=== PATIENT | male | born 1950 | race Caucasian/White ===

== ENCOUNTER 2023-12-26 10:24 | Outpatient (CLI) | payer OTHER, SELFPAY ==
[2023-12-26 11:19] LABS: Hematocrit 30.4 % (42.0-52.0); Hemoglobin 9.1 g/dL (14.0-18.0); Mean Corpuscular HGB Conc 29.9 g/dl (32-36); Mean Corpuscular Hemoglobin 24.9 pg (26-34); Mean Corpuscular Volume 83.3 fl (80-100); Mean Platelet Volume 10.9 fl (7.4-10.4); Platelet Count Result 199 k/mm3 (150-375); Red Blood Count 3.65 M/mm3 (4.6-6.20); Red Cell Distribution Width 14.8 % (11.5-14.5); White Blood Count 6.8 K/mm3 (4.5-10.0)
[2023-12-26 11:32] LABS: INR 1.1; Prothrombin Time 14.4 Seconds (11.1-14.7)
[2023-12-26 11:37] LABS: Alanine Aminotransferase 17 U/L (6-50); Albumin Level 3.6 g/dL (3.5-5.1); Alkaline Phosphatase 79 U/L (38-126); Anion Gap 7 mmol/L (4-12); Aspartate Amino Transferase 24 U/L (17-59); Bilirubin,Total 0.3 mg/dL (0.2-1.3); Blood Urea Nitrogen 25 mg/dL (9-20); Calcium 9.2 mg/dL (8.4-10.2); Carbon Dioxide 24 mmol/L (22-30); Chloride 104 mmol/L (98-107); Estimated Glomerular Filt Rate > 60; Glucose 230 mg/dL (65-110); Potassium 4.5 mmol/L (3.4-5.0); Sodium 135 mmol/L (137-145)
[2023-12-26 12:13] LABS: Iron 16 ug/dL (49-181)
[2023-12-26 12:22] LABS: Percent Iron Saturation 5 % (20-50)
[2023-12-26 12:35] LABS: Folic Acid 13.1 ng/mL (2.76->20)
[2023-12-28 16:34] LABS: Immunoglobulin A 396 mg/dL (70-320); TTG IGA AB <1.0 U/mL
== END 2023-12-26 10:25 | disposition home or self-care (01) ==
LOC: ANHLAB 10:29
PROVIDERS: PCP Family Medicine Adolescent Medicine; Visit Provider Nurse Practitioner
DX: K52.9 Noninfective gastroenteritis and colitis, unspecified (principal); D64.9 Anemia, unspecified; E11.42 Type 2 diabetes mellitus with diabetic polyneuropathy; K62.89 Other specified diseases of anus and rectum; R19.5 Other fecal abnormalities; R63.4 Abnormal weight loss
CPT/HCPCS: 36415; 80053; 82607; 82728; 82746; 82784; 83540; 83550; 84443; 85027; 85610; 86364

== ENCOUNTER 2023-12-28 08:34 | Outpatient (CLI) | payer OTHER, SELFPAY ==
[2023-12-28 14:40] LABS: Toxigenic C. Diff NEGATIVE (NEGATIVE)
[2024-01-03 18:28] LABS: Calprotectin, Stool 33 mcg/g
[2024-01-03 19:38] LABS: Pancreatic Elastase, Stool >500 mcg/g
== END 2023-12-28 08:35 | disposition home or self-care (01) ==
LOC: ANHLAB 08:35
PROVIDERS: PCP Family Medicine Adolescent Medicine; Visit Provider Nurse Practitioner
DX: R63.4 Abnormal weight loss (principal); K52.9 Noninfective gastroenteritis and colitis, unspecified; K92.2 Gastrointestinal hemorrhage, unspecified
CPT/HCPCS: 82653; 83993; 87045; 87269; 87427; 87449; 87493

== ENCOUNTER 2024-01-18 11:25 | Outpatient (CLI) | payer OTHER, SELFPAY ==
--- NOTE | ~2024-01-18 | US_ITS ---
RIGHT UPPER EXTREMITY VENOUS ULTRASOUND Ordering provider: Coby Lopez APRN History: . OTHER SPECIFIED SOFT TISSUE DISORDERS . Comparison: None. FINDINGS: --JUGULAR: Acute thrombosis --SUBCLAVIAN: Acute thrombosis. --AXILLARY: Acute thrombosis --BRACHIAL: Acute thrombosis --CEPHALIC: Acute thrombosis --BASILIC: Acute thrombosis --RADIAL: Patent and free of thrombus. Normal compressibility, phasic flow and augmentation. --ULNAR: Patent and free of thrombus. Normal compressibility, phasic flow and augmentation. IMPRESSION: POSITIVE right upper extremity venous US. Deep vein thrombosis. Reviewed, dictated and finalized at location A.
== END 2024-01-18 11:26 | disposition home or self-care (01) ==
LOC: ANHIMG 11:27
PROVIDERS: PCP Family Medicine Adolescent Medicine; Visit Provider Nurse Practitioner Family
DX: M79.89 Other specified soft tissue disorders (principal)
CPT/HCPCS: 93971

== ENCOUNTER 2024-01-18 14:06 | Emergency (ER) | payer OTHER, SELFPAY ==
[2024-01-18 15:11] VITALS: BP 165/58; PULSE 102; RESP 15; TEMP 36.6; O2SAT 98
--- NOTE | 2024-01-18 15:16 | ECG_ITS ---
Test Date: 2024-01-18 15:25:32 Measurements Intervals [place] Rate: 89 P: 78 [place]: 181 QRS: 63 QRSD: 110 T: 76 QT: 357 QTc: 435 Interpretive Statements SINUS RHYTHM NONSPECIFIC ST ABNORMALITY ABNORMAL ECG No previous ECG available for comparison Electronically Signed On 01-18-2024 16:36:07 CDT by Sascha Liu M.D.
--- NOTE | 2024-01-18 15:17 | ED.EXTPRO ---
HPI - Extremity Problem General Chief complaint: Extremity Problem,Nontraumatic <Raya Ronquillo PA-C - Last Filed: 01/18/24 18:00> Stated complaint: blood clot right arm <MARCIA Garber Last Filed: 01/18/24 18:00> Time Seen by Provider: 01/18/24 15:00 <Raya Ronquillo PA-C - Last Filed: 01/18/24 18:00> Focused HPI: This is a 73-year-old male that presents to the emergency department for right upper extremity edema. Ongoing over the last 4 days. He had an outpatient ultrasound which showed a DVT. He was prompted to be seen in the ER. He also reports shortness of breath. GENERAL: Well-appearing, well-nourished, and in no acute distress. HEAD: Normocephalic, atraumatic. CHEST: Clear to auscultation. ?No respiratory distress. HEART: Regular rate and rhythm.? NEURO: ?Alert and oriented x3. Patient screened in triage and initial orders placed.? ?Additional care and disposition to be based upon?diagnostic testing and treatment. <MARCIA Garber Last Filed: 01/18/24 18:00> Source: patient <MARCIA Garber Last Filed: 01/18/24 18:00> Mode of arrival: ambulatory <MARCIA Garber Last Filed: 01/18/24 18:00> Limitations: no limitations <MARCIA Garber Last Filed: 01/18/24 18:00> History of Present Illness HPI Narrative: 73-Year-old male presents to the emergency department for an abnormal outpatient ultrasound. Patient has had arm swelling since 01/14/2024. His outpatient ultrasound showed a DVT in his right upper extremity and was advised to be seen in the ED. He is reporting some shortness of breath and chest pain. Unable to obtain further history due to patient's combativeness. He is frustrated with his wait time and does not want any further workup or evaluation. <MARCIA Corbin Last Filed: 01/18/24 17:31> Related Data Allergies/Adverse reactions: Allergies Allergy/AdvReac Type Severity Reaction Status Date / Time No Known Allergies Allergy Verified 01/18/24 10:08 <Raya Ronquillo PA-C - Last Filed: 01/18/24 18:00> Review of Systems Review of Systems: CONSTITUTIONAL: Denies fever, chills, or sweats. EYES: Denies visual changes, redness, or discharge. ENT: Denies rhinorrhea, congestion, sore throat, or otalgia. CARDIOVASCULAR: See HPI RESPIRATORY: see HPI GASTROINTESTINAL: Denies abdominal pain, nausea, vomiting, or diarrhea. GENITOURINARY: Denies dysuria or hematuria. SKIN: Denies rash or itching. MUSCULOSKELETAL: Denies back pain, joint pain, or myalgia. NEUROLOGIC: Denies headache, numbness, or weakness. PSYCHIATRIC: Denies anxiety or depression. <Rosita Bar PA-C - Last Filed: 01/18/24 17:31> PMFSH Surgical History Surgical History: Surgical History History of amputation of right great toe (2012) <Raya Ronquillo PA-C - Last Filed: 01/18/24 18:00> Family History Family History: Family History Father Hypertension Lung cancer Mother Diabetes mellitus <Raya Ronquillo PA-C - Last Filed: 01/18/24 18:00> Social History Social History: Social History Smoking status: Former smoker Tobacco type: cigarettes Alcohol intake: former Substance use type: does not use Living arrangements: with family Spiritual care concerns: No <Raya Ronquillo PA-C - Last Filed: 01/18/24 18:00> Exam Narrative: GENERAL: Well-appearing, well-nourished, and in no acute distress. Speaking in full sentences HEAD: Normocephalic, atraumatic. NECK: Supple. EXTREMITIES: Edema and erythema to the RUE SKIN: Warm, dry, no rash. NEURO: No focal deficits. Alert and oriented x3. Ambulatory with a steady gait <Rosita Bar PA-C - Last Filed: 01/18/24 17:31> Course Vital Signs Vital signs:
[2024-01-18 15:42] LABS: Basophils Percent Auto 0.4 % (0.2-1.2); Eosinophils Percent Auto 0.5 % (0-4.4); Hematocrit 28.3 % (42.0-52.0); Hemoglobin 8.4 g/dL (14.0-18.0); Immature Granulocyte Absolute 0.12 K/mm3 (0.00-0.031); Immature Granulocyte Percent A 1.4 % (0-0.5); Lymphocytes Absolute Auto 0.66 K/mm3 (0.9-3.2); Mean Corpuscular HGB Conc 29.7 g/dl (32-36); Mean Corpuscular Hemoglobin 24.2 pg (26-34); Mean Corpuscular Volume 81.6 fl (80-100); Mean Platelet Volume 10.6 fl (7.4-10.4); Monocytes Absolute Auto 0.5 K/mm3 (0.1-0.6); Monocytes Percent Auto 6.2 % (2.6-8.5); Neutrophils Absolute Auto 6.9 K/mm3 (1.3-6.7); Neutrophils Percent Auto 83.5 % (45.5-73.1); Platelet Count Result 216 k/mm3 (150-375); Red Blood Count 3.47 M/mm3 (4.6-6.20); Red Cell Distribution Width 15.9 % (11.5-14.5); White Blood Count 8.3 K/mm3 (4.5-10.0)
[2024-01-18 15:54] LABS: Alanine Aminotransferase 17 U/L (6-50); Albumin Level 3.3 g/dL (3.5-5.1); Alkaline Phosphatase 95 U/L (38-126); Anion Gap 6 mmol/L (4-12); Aspartate Amino Transferase 36 U/L (17-59); Bilirubin,Total 0.4 mg/dL (0.2-1.3); Blood Urea Nitrogen 28 mg/dL (9-20); Calcium 9.1 mg/dL (8.4-10.2); Carbon Dioxide 23 mmol/L (22-30); Chloride 105 mmol/L (98-107); Estimated CRCL calculation 59 ml/min; Estimated Glomerular Filt Rate > 60; Glucose 252 mg/dL (65-110); INR 1.1; Partial Thromboplastin Time 25.4 Seconds (22.3-36.8); Potassium 4.6 mmol/L (3.4-5.0); Prothrombin Time 14.6 Seconds (11.1-14.7); Sodium 134 mmol/L (137-145)
[2024-01-18 16:06] LABS: Hypochromasia 1+; Ovalocytes 1+; Platelet Estimate Adequate (Adequate); Schistocytes None Seen
[2024-01-18] MEDS: APIXABAN 5 MG TABLET 10 MG PO (17:27)
--- NOTE | 2024-01-18 17:28 | PC.NURSE ---
pt was brought back to room 12 around 1650. pt was hooked up to monitor by heat treatment technician. this RN went into room and performed an assessment. pt made aware that a provider will be in to see him. pt had a medical screening exam performed by JULIETH Dos Santos. labs,vitals, EKG and IV performed in triage. heat treatment technician approached this RN and states pt is wanting to leave. JULIETH Lane made aware. Ariana and this RN walk into room. pt states You all are doing your job but Im not sitting in the bed for hours not doing nothing. I can just be at home and sit around. JULIETH Lane requesting to do an assessment on pt. pt states well isn't that what your doing right now. pt refusing for any further assessments or testing to be done and states it is taking too long. pt made aware of the risks of leaving against medical advice and benefits of staying in the hospital. pt verbalized understanding and is still refusing treatment. pt did agree to taking PO Eliquis before leaving. IV removed w/ catheter intact. pt signed AMA forms. pt ambulated out of ED with steady gait.
[2024-01-18 17:52] VITALS: BP 164/67; PULSE 84; RESP 20; O2SAT 100
== END 2024-01-18 17:52 | disposition left against medical advice (07) ==
PROVIDERS: Physician Assistant; Emergency Provider Physician Assistant; PCP Family Medicine Adolescent Medicine
DX: I82.621 Acute embolism and thrombosis of deep veins of right upper extremity (principal); Z87.891 Personal history of nicotine dependence; Z89.411 Acquired absence of right great toe; R94.31 Abnormal electrocardiogram [ECG] [EKG]
CPT/HCPCS: 36415; 80053; 85025; 85610; 85730; 93005; 93971; 99283; A9270

== ENCOUNTER 2024-03-22 03:59 | Inpatient (IN) | payer OTHER, SELFPAY ==
[2024-03-22] VITALS (14 sets, daily range): BP systolic 110–126; BP diastolic 49–73; PULSE 84–95; RESP 16–20; TEMP 36.2–36.9; O2SAT 98–100; BMI 21.1
--- NOTE | 2024-03-22 | ECHO_ITS ---
Patient Info Name: Juan Luis Aguilar Age: 73 years : 1950 Gender: Male Ht: 71 in Wt: 135 lbs BSA: 1.74 m2 HR: 89 bpm BP: 118 / 49 mmHg Heart Rhythm: Indeterminant Technical Quality: Poor Exam Date: 03/22/2024 4:19 PM Exam Location: Echo Lab Patient Status: Inpatient Admit Date: 03/22/2024 Staff Ordering Physician: Cecilia Issa MD Movie Stunt Performer: Efraín Queen RDCS Attending Provider: Cecilia Issa MD Exam Type: CA echo dop color flow w con Study Info Indications - elevated troponin Complete two-dimensional, color flow and Doppler transthoracic echocardiogram is performed with agitated saline. Reason for Poor Study: poor echocardiographic windows Summary 1. Definity contrast administered improved wall motion interpretation. 2. Left ventricular chamber dimension is moderately enlarged. 3. Mid to apical segments are severely hypokinetic and apex is akinetic. Basal segments are preserved. This is suggestive of Takotsubo cardiomyopathy. 4. Left ventricular systolic function is severely reduced, estimated at 30-35%. 5. The left ventricular diastolic function is grade I diastolic dysfunction. 6. E/e' 12 is mildly elevated. 7. 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 This is non-obstructive. Consider YEMI if clinically indicated. 8. There is mild to moderate tricuspid valve regurgitation. 9. No pulmonary hypertension, estimated pulmonary arterial systolic pressure is 39 mmHg. 10. There is small right sided pericardial effusion. Left Ventricle Definity contrast administered improved wall motion interpretation. E/e' 12 is mildly elevated. Mid to apical segments are severely hypokinetic and apex is akinetic. Basal segments are preserved. This is suggestive of Takotsubo cardiomyopathy. Left ventricular chamber dimension is moderately enlarged. Left ventricular systolic function is severely reduced, estimated at 30-35%. The left ventricular diastolic function is grade I diastolic dysfunction. Right Ventricle Right ventricular systolic function is normal and with normal TAPSE 2.3 cm. Right ventricular chamber dimension is normal. Left Atria Left atrial chamber dimension is normal. 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 This is non-obstructive. Consider YEMI if clinically indicated. Right atrial chamber dimension is normal. Aortic Valve The aortic valve is trileaflet. There is no aortic valve stenosis. There is no aortic valve regurgitation. Pulmonic Valve There is no pulmonic regurgitation. Mitral Valve There is no mitral valve stenosis. There is no mitral valve regurgitation. Tricuspid Valve There is mild to moderate tricuspid valve regurgitation. No pulmonary hypertension, estimated pulmonary arterial systolic pressure is 39 mmHg. Pericardium/Pleural There is small right sided pericardial effusion. No cardiac tamponade. Inferior Vena Cava Normal inferior vena cava with >50% collapse upon inspiration consistent with normal right atrial pressure, 5 mmHg. Aorta The aortic root size at the sinus of Valsalva is normal. Left Ventricular Outflow Tract Name Value Normal LVOT 2D
--- NOTE | ~2024-03-22 | US_ITS ---
EXAMINATION: US biopsy lymph node DATE: 03/26/2024 17:13 INDICATION: Metastatic disease with enlarged right supraclavicular lymph node TECHNIQUE: The procedure including the risks and benefits was discussed with the patient. Risks discu ssed included bleeding and infection. The patient understood the risks and agreed to proceed. The sk in overlying the right supraclavicular region was prepped and draped in usual sterile fashion. Anesth etic was administered with 1% lidocaine subcutaneously. An 18 gauge core biopsy needle was advanced under continuous ultrasound observation to the lesion of interest. 4 core biopsy specimens were obta ined. The needle was removed and the entry site was cleaned and dressed. Post procedure ultrasound demonstrated no hemorrhage. FINDINGS: Ultrasound images demonstrate the biopsy needle advanced into a 2.9 x 2.6 cm enlarged right supraclavicular lymph node. IMPRESSION: 1. Successful Ultrasound-guided biopsy of an enlarged right supraclavicular lymph node. Reviewed, dictated and finalized at location A. IMPRESSION: 1. Successful Ultrasound-guided biopsy of an enlarged right supraclavicular lym ph node.
--- NOTE | ~2024-03-22 | US_ITS ---
EXAMINATION: US venous doppler [facility] DATE: 03/27/2024 15:54 INDICATION: Lower limb pain and swelling. TECHNIQUE: Grayscale ultrasound images without and with compression and Doppler ultrasound images of the bilateral lower extremity veins were obtained. COMPARISON: None. FINDINGS: The visualized portions of right common femoral vein, profunda (deep) femoral vein, femoral vein, pop liteal vein, peroneal veins, posterior tibial veins, and greater saphenous vein outflow are patent. The visualized portions of left common femoral vein, profunda femoral vein, femoral vein, popliteal v ein, peroneal veins, posterior tibial veins, and greater saphenous vein outflow are patent. IMPRESSION: 1. No deep venous thrombosis. Reviewed, dictated and finalized at location A.
--- NOTE | ~2024-03-22 | US_ITS ---
EXAMINATION: US biopsy lymph node DATE: 03/25/2024 11:01 INDICATION: Metastatic disease with enlarged right supraclavicular lymph node TECHNIQUE: The procedure including the risks and benefits was discussed with the patient. Risks discu ssed included bleeding and infection. The patient understood the risks and agreed to proceed. The sk in overlying the right supraclavicular region was prepped and draped in usual sterile fashion. Anest hetic was administered with 1% lidocaine subcutaneously. An 18 gauge core biopsy needle was advanced under continuous ultrasound observation to the lesion of interest. 4 core biopsy specimens were obt ained. The needle was removed and the entry site was cleaned and dressed. Post procedure ultrasound demonstrated no hemorrhage. FINDINGS: Ultrasound images demonstrate the biopsy needle advanced into a 2.7 x 2.4 cm enlarged right supraclavicular lymph node. IMPRESSION: 1. Successful Ultrasound-guided biopsy of an enlarged right supraclavicular lymph node. Reviewed, dictated and finalized at location A. IMPRESSION: 1. Successful Ultrasound-guided biopsy of an enlarged right supraclavicular lym ph node.
--- NOTE | ~2024-03-22 | CT_ITS ---
EXAMINATION: CTA chest PE abdomen pel DATE: 03/22/2024 06:35 INDICATION: Chest pain. Shortness of breath. Abdominal pain. TECHNIQUE: Computed tomography angiography (CTA) of the chest was performed with 100 mL Omnipaque-350 intravenous contrast timed to evaluate the pulmonary arteries. Coronal maximum intensity projection 3D-reconstructions were created by the technologist. Computed tomography (CT) of the abdomen and pelv is was performed with intravenous contrast. Automated exposure control and iterative reconstruction t echnique were employed. The dose-length product was 384.86 mGy-cm. COMPARISON: CT abdomen and pelvis 01/15/2009 FINDINGS: CTA chest: There is moderate emphysema. There is septal thickening in the lungs. There are airspace o pacities at the lung apices. There is a 5.5 x 3.9 cm mass in right lung upper lobe. There are airspac e opacities in right lower lobe. There is a 1.8 cm nodule in left upper lobe. There is a 3.6 x 2.3 cm mass in left lower lobe. There are moderate-sized right and small left pleural effusions. There is b ilateral supraclavicular lymphadenopathy. For example, a right supraclavicular node measures 2.9 x 2. 6 cm. There is bulky mediastinal and right hilar lymphadenopathy with mass effect on right pulmonary artery. There is total occlusion of right upper lobe pulmonary artery. The heart size is normal. Ther e is a small pericardial effusion. There are coronary artery calcifications. There are bridging endpl ate osteophytes at multiple levels in the spine, consistent with diffuse idiopathic skeletal hyperost osis (DISH). . CT abdomen and pelvis: Right hepatic lobe is small. The gallbladder, spleen, pancreas, and adrenal gl ands are normal. There is cortical thinning in the kidneys. The bladder is distended. There is a larg e mass of the rectum measuring approximately 6.7 cm. There is a large volume of stool in the colon. T he appendix is normal. There is aortocaval, left para-aortic, bilateral common iliac, left internal i liac, left external iliac, right inguinal, and perirectal lymphadenopathy. There is calcified atheros clerosis of the aorta and many of the other arteries. There is no ascites. There is mild lumbar spond ylosis. IMPRESSION: 1. Rectal mass, consistent with primary malignancy. 2. Lung nodules/masses and lymphadenopathy in the chest, abdomen, and pelvis, consistent with metasta tic disease. Consider ultrasound-guided core needle biopsy of a right supraclavicular lymph node for diagnosis. 3. Airspace opacities in the upper lobes and right lower lobe, consistent with atelectasis/scarring v ersus pneumonia. 4. Mild pulmonary edema. 5. Moderate emphysema. 6. Moderate-sized right and small left pleural effusions. Reviewed, dictated and finalized at location A. IMPRESSION: 1. Rectal mass, consistent with primary malignancy. 2. Lung nodules/masses and lymphadenopathy in the chest, abdomen, and pelvis, c onsistent with metastatic disease. Consider ultrasound-guided core needle biops y of a right supraclavicular lymph node for diagnosis. 3. Airspace opacities in the upper lobes and right lower lobe, consistent with atelectasis/scarring versus pneumonia. 4. Mild pulmonary edema. 5. Moderate emphysema. 6. Moderate-sized right and small left pleural effusions.
--- NOTE | 2024-03-22 05:08 | ECG_ITS ---
Test Date: 2024-03-22 05:38:39 Measurements Intervals [place] Rate: 87 P: 63 SC: 164 QRS: 25 QRSD: 109 T: 81 QT: 391 QTc: 473 Interpretive Statements SINUS RHYTHM LOW QRS VOLTAGE [QRS DEFLECTION < 0.5/1.0 mV IN LIMB/CHEST LEADS] PREVIOUS ANTERIOR WALL INFARCTION WITH PERSISTENT ST SEGMENT ELEVATION ABNORMAL ELECTROCARDIOGRAM No previous ECG available for comparison Electronically Signed On 03-22-2024 12:51:06 CDT by Fermín Dolan M.D.
[2024-03-22 05:30] LABS: Basophils Absolute Auto 0.1 K/mm3 (0.0-0.1); Basophils Percent Auto 0.5 % (0.2-1.2); Eosinophils Absolute Auto 0.1 K/mm3 (0-0.3); Eosinophils Percent Auto 1.2 % (0-4.4); Hematocrit 23.8 % (42.0-52.0); Hemoglobin 7.1 g/dL (14.0-18.0); Immature Granulocyte Absolute 0.14 K/mm3 (0.00-0.031); Immature Granulocyte Percent A 1.4 % (0-0.5); Lymphocytes Absolute Auto 0.57 K/mm3 (0.9-3.2); Lymphocytes Percent Auto 5.5 % (18.3-44.2); Mean Corpuscular HGB Conc 29.8 g/dl (32-36); Mean Corpuscular Hemoglobin 22.3 pg (26-34); Mean Corpuscular Volume 74.8 fl (80-100); Mean Platelet Volume 9.8 fl (7.4-10.4); Monocytes Absolute Auto 0.7 K/mm3 (0.1-0.6); Monocytes Percent Auto 6.3 % (2.6-8.5); Neutrophils Absolute Auto 8.8 K/mm3 (1.3-6.7); Neutrophils Percent Auto 85.1 % (45.5-73.1); Platelet Count Result 233 k/mm3 (150-375); Red Blood Count 3.18 M/mm3 (4.6-6.20); White Blood Count 10.4 K/mm3 (4.5-10.0)
--- NOTE | 2024-03-22 05:32 | ED.GENADULT ---
HPI - General Adult General Chief complaint: Weakness History of Present Illness HPI narrative: patient 73-year-old gentleman who presents emergency department with chief complaint of weakness. Patient reports that he has been having discomfort in his chest for several weeks the patient reports that he has had no diaphoresis reports that he just feels tired and run down patient states he does have some discomfort in his upper chest the patient reports that he thinks he had COVID back in December and since then has not been feeling well. Related Data Allergies Allergy/AdvReac Type Severity Reaction Status Date / Time No Known Allergies Allergy Verified 03/22/24 05:09 Review of Systems Review of Systems: A 10 system review of systems was completed on the patient and is negative except for what is stated in the HPI. Nursing and ancillary documentation was reviewed. Exam Narrative: GENERAL: Well-appearing, well-nourished, and in no acute distress. HEAD: Normocephalic, atraumatic. EYES: PERRLA and EOMI. ENT: Nares clear, no rhinorrhea or epistaxis. Mucous membranes moist. NECK: Supple. CHEST: Clear to auscultation. No respiratory distress. HEART: Regular rate and rhythm. No murmur heard. Normal peripheral pulses. ABDOMEN: Soft, Tenderness in the right lower quadrant, nondistended, normal active bowel sounds. EXTREMITIES: Normal range of motion. No edema. SKIN: Warm, dry, no rash. NEURO: No focal deficits. Alert and oriented x3. PSYCH: Normal mood and affect. Course Vital Signs Vital signs: Vital Signs Pulse Rate 89 03/22/24 05:07 Temperature 36.9 C 03/22/24 05:22 Pulse Rate 87 03/22/24 05:22 Respiratory Rate 16 03/22/24 05:22 Blood Pressure 125/62 03/22/24 05:22 Pulse Oximetry 99 03/22/24 05:22 Oxygen Delivery Room Air 03/22/24 05:08 Medical Decision Making [facility] Narrative Medical decision making narrative: differential diagnosis includes ACS, electrolyte abnormality, renal failure, neoplasm, GI bleed, EKG showed nonspecific T-wave abnormalities not consistent with ST-elevation KS. initial troponin was significantly elevated at 2.96 the case was discussed with the interventionalist on-call who agreed that the patient was not an ST-elevation KS and initially recommended statin heparin drip aspirin and to notify the day consult service further laboratory test came back patient was found to be anemic with a hemoglobin of 7.1 the patient was found to be guaiac positive on rectal exam and there was an appreciable mass present on exam. CTA chest with abdomen pelvis showed no evidence of pulmonary embolism but did show evidence of a rectal mass and metastatic lesions. Electrolytes showed the patient to be hyponatremic due to the GI bleed and anemia after discussion with day cardiology team the patient will be held from further anticoagulant therapy. the case was discussed with the hospitalist the patient will receive further care in the inpatient setting Vital Signs Vital Signs: Vital Signs Pulse Rate 89 03/22/24 05:07 Temperature 36.9 C 03/22/24 05:22 Pulse Rate 87 03/22/24 05:22 Respiratory Rate 16 03/22/24 05:22 Blood Pressure 125/62 03/22/24 05:22 Pulse Oximetry 99 03/22/24 05:22 Oxygen Delivery Room Air 03/22/24 05:08 Lab Data 03/22/24 05:16 03/22/24 05:16 Labs: Lab Results 03/22/24 03/22/24 03/22/24 Range/Units 05:16 06:55 07:23 WBC 10.4 H (4.5-10.0) K/mm3 RBC 3.18 L (4.6-6.20) M/mm3 Hgb 7.1 L (14.0-18.0) g/dL Hct 23.8 L (42.0-52.0) % MCV 74.8 L (80-100) fl MCH 22.3 L (26-34) pg MCHC 29.8 L (32-36) g/dl RDW 16.0 H (11.5-14.5) % Plt Count 233 (150-375) k/mm3 MPV 9.8 (7.4-10.4) fl Immature Gran % (Auto) 1.4 H (0-0.5) % Neut % (Auto) 85.1 H (45.5-73.1) % Lymph % (Auto) 5.5 L (18.3-44.2) % [place] % (Auto) 6.3
[2024-03-22 05:37] LABS: INR 1.4; Prothrombin Time 17.7 Seconds (11.1-14.7)
[2024-03-22 05:38] LABS: Partial Thromboplastin Time 33.2 Seconds (22.3-36.8)
[2024-03-22 05:39] LABS: Alanine Aminotransferase 11 U/L (6-50); Albumin Level 2.7 g/dL (3.5-5.1); Alkaline Phosphatase 79 U/L (38-126); Anion Gap 9 mmol/L (4-12); Aspartate Amino Transferase 34 U/L (17-59); Bilirubin,Total 0.2 mg/dL (0.2-1.3); Blood Urea Nitrogen 14 mg/dL (9-20); Calcium 8.4 mg/dL (8.4-10.2); Carbon Dioxide 21 mmol/L (22-30); Chloride 90 mmol/L (98-107); Estimated CRCL calculation 98 ml/min; Estimated Glomerular Filt Rate > 60; Glucose 248 mg/dL (65-110); Potassium 4.6 mmol/L (3.4-5.0); Sodium 120 mmol/L (137-145)
[2024-03-22 05:52] LABS: NT Pro B Type Natriuretic Pept 10800 pg/mL (19.9-100)
--- NOTE | 2024-03-22 05:58 | PC.NURSE ---
Patient now states he has chest pain and that is has been going on for about [address] Ford
[2024-03-22] MEDS: ASPIRIN 81 MG CHEWABLE TABLET 324 MG PO (06:31)
[2024-03-22] MEDS: ATORVASTATIN 10 MG TABLET PO (06:32)
[2024-03-22 06:37] LABS: Hypochromasia 1+; Platelet Estimate Adequate (Adequate)
[2024-03-22 06:38] LABS: Anisocytosis 1+; Schistocytes None Seen
[2024-03-22] MEDS: HEPARIN SOD/D5W 100 UNITS/ML 25,000 UNITS/250 ML BAG 9 UNITS IV CONT (07:13)
[2024-03-22] MEDS: HEPARIN SODIUM 5,000 UNITS/ML VIAL 4000 UNITS IV PUSH (07:13)
[2024-03-22 07:27] LABS: Add Urine Microscopic? YES; Appearance Urine Clear (Clear); Bacteria Urine None Seen /hpf; Bilirubin Urine Negative (Negative); Blood Urine Negative (Negative); Color Urine Yellow (Yellow); Glucose Urine UA Trace mg/dL (Negative); Ketones Urine Negative (Negative); Leukocyte Esterase Ur Negative LEU/UL (Negative); Nitrate Urine Negative (Negative); Protein Urine Trace mg/dL (Negative); RBC Urine 0-2 /hpf (0-2); Specific Grav Ur 1.037 (1.001-1.035); Squamous Epithelial Cell Urine None Seen /hpf (Few); Urobilinogen Urine 0.2 mg/dL (<2.0); WBC Urine 0-5 /hpf (0-3)
[2024-03-22 07:45] LABS: Influenza A QL RT-PCR Negative (Negative); Influenza B QL RT-PCR Negative (Negative); RSV RNA, RT-PCR Negative (Negative); SARS-CoV-2 RNA PCR Positive (Negative)
[2024-03-22 07:47] LABS: Lactic Acid Reflex 2.6 mmol/L (0.7-2.0)
--- NOTE | 2024-03-22 08:53 | ADMGEN ---
This patient, Juan Luis Aguilar, was admitted to IMU Room 213-01 at 0845. Patient/family oriented to hospital policies and general routines including ID bracelet, bed and alarms, visiting hours, pain management, procedures, bathroom and other care routines, personal items, smoking policy, room service/diet, and visiting hours. Information on how to activate the Rapid Response Team has been discussed. Patient/Family are encouraged to report perceived risks to care and to ask questions if they do not understand what they are told or what they should do.
[2024-03-22 09:43] LABS: Procalcitonin 0.2 ng/mL
[2024-03-22 10:28] LABS: Reflex Lactic Acid Yes or No Add Lactic
[2024-03-22 11:44] LABS: Hematocrit 25.2 % (42.0-52.0); Hemoglobin 7.6 g/dL (14.0-18.0)
[2024-03-22 11:56] LABS: INR 1.3; Prothrombin Time 16.7 Seconds (11.1-14.7)
[2024-03-22 11:57] LABS: Partial Thromboplastin Time 29.9 Seconds (22.3-36.8)
[2024-03-22 12:00] LABS: Lactic Acid 1.5 mmol/L (0.7-2.0)
--- NOTE | 2024-03-22 12:51 | PM.IMHP ---
H&P: HPI History of Present Illness Date/Time: 03/22/24 12:51 Chief Complaint: Weakness Narrative: 73 y/o M presents here with weakness with PMH of The patient presents here generalized weakness from XX. Patient reports weakness has been ongoing for the past XX. Initial VS at presentation: 98.4? F, HR 89, RR 16, 125/62, 98% on RA. ED workup showed: PMFSH Past Medical History Medical History (Updated 03/22/24 @ 08:25 by Jaz Stock) COVID-19 Surgical History Surgical History (Updated 03/22/24 @ 08:25 by Jaz Stock) History of amputation of right great toe (2012) Family History Family History Father Hypertension Lung cancer Mother Diabetes mellitus Social History Social History (System 03/22/24 @ 08:25 by Jaz Stock) Smoking packs per day: 1.5 Smoking cigarettes per day: 30.0 Years smoked: 32 Smoking pack-years: 48.00 Smoking status: Former smoker Tobacco type: cigarettes Alcohol intake: never Substance use: never Substance use type: does not use Do You Feel Safe in your Home?: No Lack of Transportation: No Lack of Food: Never True Current Housing: I Have Housing Concerned About Future Housing: No Difficulty Paying Gas/Electric Bills: No Difficulty Paying for Meds: No Currently Unemployed: No Education: High School Diploma/GED Difficulty w/ Childcare or Family Care: No Living arrangements: with family Spiritual care concerns: No Meds Home Medications and Allergies Home Medications Medication Instructions Recorded Confirmed Type apixaban 5 mg tablet (Eliquis) 5 mg PO BID #80 tabs 03/07/24 03/22/24 Rx Allergies Allergy/AdvReac Type Severity Reaction Status Date / Time No Known Allergies Allergy Verified 03/22/24 08:25 Vital Signs Vital Signs - 24 hr 03/22/24 05:07 03/22/24 05:08 03/22/24 05:22 Temperature 98.4 F Pulse Rate 89 87 Respiratory Rate 16 Blood Pressure 125/62 Pulse Oximetry 98 99 Oxygen Delivery Room Air 03/22/24 07:30 03/22/24 08:15 03/22/24 08:45 Temperature Pulse Rate 87 88 Respiratory Rate 16 18 Blood Pressure 122/57 L 120/66 Pulse Oximetry 98 98 98 Oxygen Delivery Room Air 03/22/24 12:00 Temperature 97.1 F L Pulse Rate 89 Respiratory Rate 20 Blood Pressure 118/49 L Pulse Oximetry 100 Oxygen Delivery H&P: Results Labs Labs: Short CBC 03/22/24 03/22/24 Range/Units 05:16 11:38 WBC 10.4 H (4.5-10.0) K/mm3 Hgb 7.1 L 7.6 L (14.0-18.0) g/dL Hct 23.8 L 25.2 L (42.0-52.0) % Plt Count 233 (150-375) k/mm3 BMP 03/22/24 05:16 Sodium 120 L Potassium 4.6 Chloride 90 L Carbon Dioxide 21 L BUN 14 Creatinine 0.60 L Glucose 248 H Calcium 8.4 Cardiac Enzymes 03/22/24 03/22/24 03/22/24 Range/Units 05:16 08:25 11:38 Troponin I 2.960 H* 3.470 H* 4.510 H* D (0.000-0.034) ng/mL Liver Function 03/22/24 Range/Units 05:16 Total Bilirubin 0.2 (0.2-1.3) mg/dL AST 34 (17-59) U/L ALT 11 (6-50) U/L Alkaline Phosphatase 79 (38-126) U/L Albumin 2.7 L (3.5-5.1) g/dL Urine 03/22/24 Range/Units 06:55 Urine Color Yellow (Yellow) Urine Appearance Clear (Clear) Urine pH 5.0 (5.0-9.0) Ur Specific [place] 1.037 H (1.001-1.035) Urine Protein Trace (Negative) mg/dL Urine Glucose (UA) Trace H (Negative) mg/dL
--- NOTE | 2024-03-22 13:42 | PM.IMHP ---
H&P: HPI History of Present Illness Date/Time: 03/22/24 13:42 Chief Complaint: Weakness Narrative: ER-HPI - narrative: patient 73-year-old gentleman who presents emergency department with chief complaint of weakness. Patient reports that he has been having discomfort in his chest for several weeks the patient reports that he has had no diaphoresis reports that he just feels tired and run down patient states he does have some discomfort in his upper chest the patient reports that he thinks he had COVID back in December and since then has not been feeling well. Patient states in December his was diagnosed with COVID however he was not tested and presumed he is also positive for COVID did not have any complain of cough or shortness of breath, been noticing some blood in the stool and also been in contact with GI for further evaluation however patient had not been seen, today patient presented emergency depart with complaint of worsening weakness and tired, during ER rectal exam for anemia patient was stool Hemoccult was positive and ER physician felt a mass in the rectum. Patient the complaint of chest discomfort patient had tropes which were elevated 2.96 cardiology was consulted because the patient rectal bleeding and mass in the rectum heparin was not started patient was placed on aspirin, statin and Cardiology will see the patient and further recommendation to follow. Currently patient states he is hungry and wants to eat. His is present in the room. Review of Systems Review of Systems: A 10 system review of systems was completed on the patient and is negative except for what is stated in the HPI. Nursing and ancillary documentation was reviewed. [facility] Past Medical History Medical History (Updated 03/22/24 @ 08:25 by Jaz Stock) COVID-19 Surgical History Surgical History (Updated 03/22/24 @ 08:25 by Jaz Stock) History of amputation of right great toe (2012) Family History Family History Father Hypertension Lung cancer Mother Diabetes mellitus Social History Social History (System 03/22/24 @ 08:25 by Jaz Stock) Smoking packs per day: 1.5 Smoking cigarettes per day: 30.0 Years smoked: 32 Smoking pack-years: 48.00 Smoking status: Former smoker Tobacco type: cigarettes Alcohol intake: never Substance use: never Substance use type: does not use Do You Feel Safe in your Home?: No Lack of Transportation: No Lack of Food: Never True Current Housing: I Have Housing Concerned About Future Housing: No Difficulty Paying Gas/Electric Bills: No Difficulty Paying for Meds: No Currently Unemployed: No Education: High School Diploma/GED Difficulty w/ Childcare or Family Care: No Living arrangements: with family Spiritual care concerns: No Meds Home Medications and Allergies Home Medications Medication Instructions Recorded Confirmed Type apixaban 5 mg tablet (Eliquis) 5 mg PO BID #80 tabs 03/07/24 03/22/24 Rx Allergies Allergy/AdvReac Type Severity Reaction Status Date / Time No Known Allergies Allergy Verified 03/22/24 08:25 Vital Signs Vital Signs - 24 hr 03/22/24 05:07 03/22/24 05:08 03/22/24 05:22 Temperature 36.9 C Pulse Rate 89 87 Respiratory Rate 16 Blood Pressure 125/62 Pulse Oximetry 98 99 Oxygen Delivery Room Air 03/22/24 07:30 03/22/24 08:15 03/22/24 08:45 Temperature Pulse Rate 87 88 Respiratory Rate 16 18 Blood Pressure 122/57 L 120/66 Pulse Oximetry 98 98 98 Oxygen Delivery Room Air 03/22/24 12:00 Temperature 36.2 C L Pulse Rate 89 Respiratory Rate 20 Blood Pressure 118/49 L Pulse Oximetry 100 Oxygen Delivery Exam Narrative: Elderly frail chronically ill Patient is comfortable, NAD HEENT: eyes are clear and none icteric LUNGS: Bilateral fair entry minimal rhonchi HEART: RR S1S2 ABD: BS+, Soft and d
--- NOTE | 2024-03-22 15:09 | PM.CNCAR ---
Assessment and Plan Assessment and plan (1) Anterior wall myocardial infarction: Code(s): I21.09 - ST elevation (STEMI) myocardial infarction involving other coronary artery of anterior wall Status: Acute Plan this is a somewhat complex been very unfortunate 73-year-old man who clearly has coronary disease because by history, troponin level and electrocardiogram she has sustained an anterior wall infarction between the end of December and this admission. His infarction with has obviously not been complicated by heart failure or serious arrhythmias. Concurrent with this he is markedly anemic and appears to have clear evidence of metastatic colon cancer. The patient in this setting should be treated very conservatively. He is not a candidate for coronary angiography as he is not a candidate for revascularization. I am going to start him on modest doses of beta-javon, ARB and statin 4 guideline directed medical therapy for his infarction. Because of his severe anemia I do not believe we should start anti-platelet therapy. He had been anticoagulate with apixaban which also has been appropriately stopped because of he is severely anemic. Had a long discussion with the patient about his end of life wishes, code status there is no evidence in the chart that anyone else's done this and this is appropriate and very important considering his advanced malignancy. Fermín Dolan MD [facility] History of Present Illness History of Present Illness Consult date/time: 03/22/24 15:09 Reason For Visit: NSTEMI/GI Bleed/Anemia/Hyponatremia/Rectal Mass W Narrative: this is a 73-year-old man I am seeing today at the request of the hospitalist because of clear evidence sinus chart that he has sustained an anterior myocardial infarction. I do not have any evidence of seeing this patient in the past and he does not report any prior history of heart disease. He sees Dr. Joel as his PCP and those notes do not indicate any previous history of cardiac problems. The patient came to the hospital emergency room early this morning feeling poorly with generalized weakness and fatigue he also reported that over the last 2-3 weeks or so he has been having chest pain. He describes the chest pain as a burning like low substernal pain that has been there for a couple of weeks. It is not there currently. He was evaluated in the emergency room and his electrocardiogram shows sinus rhythm with evidence of a previous anterior infarction which was not evident on electrocardiogram done in December of this year. The patient also was severely anemic with a hemoglobin of [address] scan was done which appears to show clear evidence of metastatic carcinoma of the colon with a large rectal mass with significant abdominal and thoracic metastatic disease. The patient according to the clinic notes was found to have a positive Cologuard a number of years ago but refused pursuing that with a colonoscopy. In this setting I am seeing him in consultation. Apparently he has a history of recent/ previous DVTs and he had been anticoagulated with apixaban. He is not having any shortness of breath palpitations orthopnea PND or edema. Review of Systems Constitutional: Constitutional: Reports fatigue and Reports lethargy Eyes: Eyes: Reports no additional eye complaints ENT: Reports system reviewed and no additional complaints, except as documented Cardiovascular: Cardiovascular: Reports as per HPI and Reports chest pain Respiratory: Respiratory: Reports no additional respiratory complaints Gastrointestinal: Gastrointestinal: Reports as per HPI Musculoskeletal: Musculoskeletal: Reports no additional musculoskeletal complaints Integumentary/Breasts: Skin/Breast: Reports system reviewed and no additional complaints, except as docu Neurologic: Comments: Alert and oriented x3 Endocrine: Endocrine: Reports no additional endocrine complaints Hematologic
[2024-03-22] MEDS: SODIUM CHLORIDE 0.9% IV 1,000 ML 50 ML IV CONT (15:37)
[2024-03-22 16:16] LABS: Hematocrit 24.8 % (42.0-52.0); Hemoglobin 7.5 g/dL (14.0-18.0)
[2024-03-22 16:30] LABS: Alanine Aminotransferase 12 U/L (6-50); Albumin Level 2.6 g/dL (3.5-5.1); Alkaline Phosphatase 75 U/L (38-126); Anion Gap 8 mmol/L (4-12); Aspartate Amino Transferase 45 U/L (17-59); Bilirubin,Total 0.3 mg/dL (0.2-1.3); Blood Urea Nitrogen 13 mg/dL (9-20); Calcium 8.1 mg/dL (8.4-10.2); Carbon Dioxide 24 mmol/L (22-30); Chloride 89 mmol/L (98-107); Estimated CRCL calculation 70 ml/min; Estimated Glomerular Filt Rate > 60; Glucose 282 mg/dL (65-110); Potassium 4.5 mmol/L (3.4-5.0); Sodium 121 mmol/L (137-145)
[2024-03-22] MEDS: PERFLUTREN LIPID MICROSPHERES 1.5 ML VIAL DILUTED TO 10 ML TOTAL VOLUME IV PUSH (16:45)
[2024-03-22 16:56] LABS: Cholesterol 87 mg/dL (0-200); HDL Direct 21 mg/dL
--- NOTE | 2024-03-22 17:00 | IVDEFINITY ---
Prior to administration of IV Definity the patient was educated on the risks and benefits of the imaging enhancing agent including potential adverse side effects. The patient verbalized understanding. Allergies were verified. No exclusion criteria were identified and at least one of the following inclusion criteria were met: 1) physician request, 2) patient technically difficult to image (per the [place] [employer] guidelines of two or more segments not discernable within the apical view), or 3) questionable left ventricular function. ?
[2024-03-22 17:06] LABS: LDL Cholesterol Direct 56 mg/dL
[2024-03-23] VITALS (12 sets, daily range): BP systolic 96–119; BP diastolic 34–62; PULSE 83–96; RESP 14–20; TEMP 36.7–37.2; O2SAT 95–100
[2024-03-23 01:47] LABS: Magnesium 1.6 mg/dL (1.6-2.3)
[2024-03-23 01:48] LABS: Basophils Percent Auto 0.3 % (0.2-1.2); Eosinophils Absolute Auto 0.1 K/mm3 (0-0.3); Eosinophils Percent Auto 0.8 % (0-4.4); Hematocrit 24.2 % (42.0-52.0); Hemoglobin 7.3 g/dL (14.0-18.0); Immature Granulocyte Absolute 0.16 K/mm3 (0.00-0.031); Immature Granulocyte Percent A 1.3 % (0-0.5); Lymphocytes Absolute Auto 0.73 K/mm3 (0.9-3.2); Lymphocytes Percent Auto 6.2 % (18.3-44.2); Mean Corpuscular HGB Conc 30.2 g/dl (32-36); Mean Corpuscular Hemoglobin 22.3 pg (26-34); Mean Platelet Volume 9.9 fl (7.4-10.4); Monocytes Absolute Auto 0.8 K/mm3 (0.1-0.6); Monocytes Percent Auto 6.9 % (2.6-8.5); Neutrophils Percent Auto 84.5 % (45.5-73.1); Platelet Count Result 259 k/mm3 (150-375); Red Blood Count 3.27 M/mm3 (4.6-6.20); Red Cell Distribution Width 15.9 % (11.5-14.5); White Blood Count 11.9 K/mm3 (4.5-10.0)
[2024-03-23 02:28] LABS: Microcytosis 2+ (NORMAL)
[2024-03-23 02:29] LABS: Hypochromasia 1+; Schistocytes Rare
[2024-03-23 03:41] LABS: Lymphocytes Absolute Manual 0.83 K/mm3 (1.1-4.5); Monocytes Absolute Manual 0.95 K/mm3 (0.1-0.90); Monocytes Percent Manual 8 % (3-9); Neutrophils Percent Manual 85 % (46-73); Total Cells Counted 100
[2024-03-23 03:42] LABS: Platelet Estimate Adequate (Adequate)
[2024-03-23 08:38] LABS: Glucose Point of Care 202 mg/dl (65-105)
--- NOTE | 2024-03-23 10:40 | WPDGICN ---
Assessment and Plan Assessment and plan (1) Metastatic disease: Code(s): C79.9 - Secondary malignant neoplasm of unspecified site Status: Acute Assessment and Plan: unfortunately he never had colonoscopy despite recommendations and having cologuard + now here with weight loss, worsening anemia, diarrhea and metastatic disease given acute NSTEMI with covid probably colonoscopy at this moment is not a priority, I prefer to ask radiologist to get sample tissure from supraclavicular lymph node and also ask oncologist evaluation prognosis is poor, will need to discuss with patient about advance directive (2) Rectal mass: Code(s): K62.89 - Other specified diseases of anus and rectum Status: Acute Assessment and Plan: get LN biopsy instead since he already has stage IV (3) Non-STEMI (non-ST elevated myocardial infarction): Code(s): I21.4 - Non-ST elevation (NSTEMI) myocardial infarction Status: Acute Assessment and Plan: by cardiology he is not a candidate to blood thinner- in fact eliquis was already discontinued- or cardiac cath given advanced metastatic disease (4) Acute hyponatremia: Code(s): E87.1 - Hypo-osmolality and hyponatremia Status: Acute (5) Acute GI bleeding: Code(s): K92.2 - Gastrointestinal hemorrhage, unspecified Status: Acute Assessment and Plan: slow gib from colon cancer hold blood thinner (6) Diarrhea: Code(s): R19.7 - Diarrhea, unspecified Status: Acute (7) Abnormal weight loss: Code(s): R63.4 - Abnormal weight loss Status: Acute (8) COVID-19: Code(s): U07.1 - COVID-19 Status: Acute Assessment and Plan: on isolation GI Consult Note Consult date/time: 03/23/24 10:40 Reason for consult: metastatic disease, symptomatic anemia HPI: Juan Luis Aguilar is a 73 year old male with past medical history of diabetes with neuropathy, hypertension. Her PCP had a Cologuard done few years ago that was positive but declined colonoscopy at that time, then he even came to our office 11/2023 because intermittent diarrhea daily with fecal urgency for over a year and anemia with hgb 10, he was strongly advised to have colonoscopy but he did not follow through (never had one). He is here with progressive generalized weakness, also last several days with cough and shortness of breath on exertion with chest pain for last 2 weeks, described as a burning like low substernal pain , he finally came to the emergency room and his electrocardiogram shows sinus rhythm with evidence of a previous anterior infarction which was not evident on electrocardiogram done in December of this year. The patient also was severely anemic with a hemoglobin of [address] scan was done which appears to show clear evidence of metastatic carcinoma of the colon with a large rectal mass with significant abdominal and thoracic metastatic disease. Also + COVID, elevated troponin 4 and hyponatremia 121. He is on isolation, also was on eliquis but now is on hold. Review of Systems Constitutional: Constitutional: Reports fatigue, Reports lethargy and Reports weight loss Eyes: Eyes: Denies blurry vision ENT: Reports Normal hearing present Cardiovascular: Cardiovascular: Reports chest pain Respiratory: Respiratory: Reports dyspnea on exertion Gastrointestinal: Gastrointestinal: Reports diarrhea Genitourinary: Genitourinary: Denies dysuria Musculoskeletal: Musculoskeletal: Denies neck pain Integumentary/Breasts: Skin/Breast: Denies rash Neurologic: Denies Abnormal speech present Psychiatric: Psychiatric: Denies behavioral changes [facility] Past Medical History Medical History (Updated 03/23/24 @ 10:48 by Rahul Lambert MD) COVID-19 Metastatic disease Surgical History Surgical History (Updated 03/22/24 @ 08:25 by Jaz Stock) History of amputation of right great toe (2012)
[2024-03-23 10:41] LABS: Basophils Percent Auto 0.2 % (0.2-1.2); Eosinophils Absolute Auto 0.1 K/mm3 (0-0.3); Eosinophils Percent Auto 0.9 % (0-4.4); Hematocrit 26.2 % (42.0-52.0); Hemoglobin 7.6 g/dL (14.0-18.0); Immature Granulocyte Absolute 0.22 K/mm3 (0.00-0.031); Immature Granulocyte Percent A 1.8 % (0-0.5); Lymphocytes Absolute Auto 0.72 K/mm3 (0.9-3.2); Lymphocytes Percent Auto 5.8 % (18.3-44.2); Mean Corpuscular Hemoglobin 21.8 pg (26-34); Mean Corpuscular Volume 75.3 fl (80-100); Mean Platelet Volume 9.2 fl (7.4-10.4); Monocytes Absolute Auto 0.9 K/mm3 (0.1-0.6); Monocytes Percent Auto 7.2 % (2.6-8.5); Neutrophils Absolute Auto 10.4 K/mm3 (1.3-6.7); Neutrophils Percent Auto 84.1 % (45.5-73.1); Platelet Count Result 290 k/mm3 (150-375); Red Blood Count 3.48 M/mm3 (4.6-6.20); Red Cell Distribution Width 16.1 % (11.5-14.5); White Blood Count 12.4 K/mm3 (4.5-10.0)
[2024-03-23] MEDS: ATORVASTATIN 20 MG TABLET PO (10:48)
[2024-03-23] MEDS: METOPROLOL SUCCINATE EXT REL 25 MG TABCR PO (10:49)
[2024-03-23] MEDS: LOSARTAN POTASSIUM 12.5 MG TABLET PO (10:49)
[2024-03-23 12:03] LABS: Platelet Estimate Adequate (Adequate)
[2024-03-23 12:04] LABS: Anisocytosis 1+; Hypochromasia 1+; Microcytosis 1+ (NORMAL); Schistocytes None Seen
[2024-03-23] MEDS: SODIUM CHLORIDE 0.9% IV 1,000 ML 50 ML IV CONT (16:00)
[2024-03-23 16:10] LABS: Glucose Point of Care 217 mg/dl (65-105)
--- NOTE | 2024-03-23 19:00 | WPDPN ---
Progress Note: A&P Assessment and Plan (1) Non-STEMI (non-ST elevated myocardial infarction): Code(s): I21.4 - Non-ST elevation (NSTEMI) myocardial infarction Status: Acute Assessment and Plan: Patient with complaint of chest pain is elevated tropes thoracic medicine physician suspect nondistended and further recommendation to follow. (2) Acute hyponatremia: Code(s): E87.1 - Hypo-osmolality and hyponatremia Status: Acute Assessment and Plan: Etiology uncertain most likely secondary to GI cancer will gently hydrate the patient consult retouching operator for further recommendation (3) Rectal mass: Code(s): K62.89 - Other specified diseases of anus and rectum Status: Acute Assessment and Plan: Patient be seen by GI and further recommendation to follow (4) Acute GI bleeding: Code(s): K92.2 - Gastrointestinal hemorrhage, unspecified Status: Acute Assessment and Plan: Most likely secondary to colon mass will monitor H&H. (5) Acute anemia: Code(s): D64.9 - Anemia, unspecified Status: Acute (6) Type 2 diabetes mellitus with diabetic polyneuropathy: Code(s): E11.42 - Type 2 diabetes mellitus with diabetic polyneuropathy Status: Acute Assessment and Plan: Apparently patient is not on any anti diabetic medication will monitor with sliding scale and further recommendation to follow. Plan Patient states in December his was diagnosed with COVID however he was not tested and presumed he is also positive for COVID did not have any complain of cough or shortness of breath, been noticing some blood in the stool and also been in contact with GI for further evaluation however patient had not been seen, today patient presented emergency depart with complaint of worsening weakness and tired, during ER rectal exam for anemia patient was stool Hemoccult was positive and ER physician felt a mass in the rectum. Patient the complaint of chest discomfort patient had tropes which were elevated 2.96 cardiology was consulted because the patient rectal bleeding and mass in the rectum heparin was not started patient was placed on aspirin, statin and patient was seen by the Cardiology does not recommend any invasive work as patient is bleeding, has rectal mass, unable to coagulate the patient in the event patient needs stents, furthermore recommended hospice for the patient, I discussed with the patient today, he is not ready for hospice now, he is seen by a GI and will have colonoscopy, and further recommendation to follow. His is present in the room. Subjective Date/time seen: 03/23/24 19:00 Interval history: Patient states in December his was diagnosed with COVID however he was not tested and presumed he is also positive for COVID did not have any complain of cough or shortness of breath, been noticing some blood in the stool and also been in contact with GI for further evaluation however patient had not been seen, today patient presented emergency depart with complaint of worsening weakness and tired, during ER rectal exam for anemia patient was stool Hemoccult was positive and ER physician felt a mass in the rectum. Patient the complaint of chest discomfort patient had tropes which were elevated 2.96 cardiology was consulted because the patient rectal bleeding and mass in the rectum heparin was not started patient was placed on aspirin, statin and patient was seen by the Cardiology does not recommend any invasive work as patient is bleeding, has rectal mass, unable to coagulate the patient in the event patient needs stents, furthermore recommended hospice for the patient, I discussed with the patient today, he is not ready for hospice now, he is seen by a GI and will have colonoscopy, and further recommendation to follow. His is present in the room. Review of Systems Review of Systems: A 10 system review of systems was completed on the patient and is negative except fo
[2024-03-23 20:55] LABS: Glucose Point of Care 182 mg/dl (65-105)
[2024-03-24] VITALS (23 sets, daily range): BP systolic 99–131; BP diastolic 40–58; PULSE 81–93; RESP 16–20; TEMP 36.2–37.2; O2SAT 89–100
--- NOTE | 2024-03-24 02:42 | ECG_ITS ---
Test Date: 2024-03-24 02:42:17 Measurements Intervals Verdi Rate: 84 P: 50 NH: 180 QRS: 4 QRSD: 110 T: 67 QT: 368 QTc: 437 Interpretive Statements SINUS RHYTHM LOW QRS VOLTAGE IN EXTREMITY LEADS [QRS DEFLECTION < 0.5 mV IN LIMB LEADS] ANTERIOR WALL MYOCARDIAL INFARCTION WITH PERSISTENT ST ELEVATION ABNORMAL ELECTROCARDIOGRAM Compared to ECG 03/24/2024 02:24:30 ST SEGMENTS IN THE TO THROUGH V4 ARE MORE ELEVATED Electronically Signed On 03-25-2024 07:27:33 CDT by Fermín Dolan M.D.
[2024-03-24 04:48] LABS: Hematocrit 23.3 % (42.0-52.0); Mean Corpuscular HGB Conc 29.6 g/dl (32-36); Mean Corpuscular Hemoglobin 22.2 pg (26-34); Mean Corpuscular Volume 74.9 fl (80-100); Mean Platelet Volume 9.9 fl (7.4-10.4); Platelet Count Result 269 k/mm3 (150-375); Red Blood Count 3.11 M/mm3 (4.6-6.20); Red Cell Distribution Width 16.3 % (11.5-14.5); White Blood Count 11.9 K/mm3 (4.5-10.0)
[2024-03-24 04:58] LABS: Hemoglobin 6.9 g/dL (14.0-18.0)
[2024-03-24 05:02] LABS: Magnesium 1.6 mg/dL (1.6-2.3)
[2024-03-24 05:06] LABS: Anion Gap 6 mmol/L (4-12); Blood Urea Nitrogen 13 mg/dL (9-20); Calcium 7.9 mg/dL (8.4-10.2); Carbon Dioxide 22 mmol/L (22-30); Chloride 89 mmol/L (98-107); Estimated CRCL calculation 68 ml/min; Estimated Glomerular Filt Rate > 60; Glucose 133 mg/dL (65-110); Potassium 4.2 mmol/L (3.4-5.0); Sodium 117 mmol/L (137-145)
[2024-03-24] MEDS: guaiFENesin/DEXTROMETHORPHAN 10 ML UDC PO ×3 (05:12→23:06)
[2024-03-24 08:04] LABS: Glucose Point of Care 159 mg/dl (65-105)
[2024-03-24] MEDS: LOSARTAN POTASSIUM 12.5 MG TABLET PO (09:39)
[2024-03-24] MEDS: ATORVASTATIN 20 MG TABLET PO (09:39)
[2024-03-24] MEDS: METOPROLOL SUCCINATE EXT REL 25 MG TABCR PO (09:39)
[2024-03-24 10:12] LABS: Basophils Percent Auto 0.3 % (0.2-1.2); Eosinophils Absolute Auto 0.1 K/mm3 (0-0.3); Eosinophils Percent Auto 0.7 % (0-4.4); Hematocrit 23.8 % (42.0-52.0); Immature Granulocyte Absolute 0.15 K/mm3 (0.00-0.031); Immature Granulocyte Percent A 1.2 % (0-0.5); Lymphocytes Absolute Auto 0.69 K/mm3 (0.9-3.2); Lymphocytes Percent Auto 5.3 % (18.3-44.2); Mean Corpuscular HGB Conc 29.4 g/dl (32-36); Mean Corpuscular Hemoglobin 22.2 pg (26-34); Mean Corpuscular Volume 75.6 fl (80-100); Monocytes Absolute Auto 0.8 K/mm3 (0.1-0.6); Neutrophils Absolute Auto 11.3 K/mm3 (1.3-6.7); Neutrophils Percent Auto 86.5 % (45.5-73.1); Platelet Count Result 220 k/mm3 (150-375); Red Blood Count 3.15 M/mm3 (4.6-6.20); Red Cell Distribution Width 16.1 % (11.5-14.5)
[2024-03-24 10:56] LABS: Platelet Estimate Adequate (Adequate)
[2024-03-24 10:57] LABS: Anisocytosis 1+; Hypochromasia 1+; Microcytosis 1+ (NORMAL); Schistocytes None Seen
[2024-03-24 11:39] LABS: Glucose Point of Care 159 mg/dl (65-105)
--- NOTE | 2024-03-24 12:06 | PM.PNCARD ---
Progress Note: A&P Assessment and Plan (1) Anterior wall myocardial infarction: Code(s): I21.09 - ST elevation (STEMI) myocardial infarction involving other coronary artery of anterior wall Status: Acute Assessment and Plan: He has sustained a recent anterior ID. Has had persistent ST elevations since admission, however, chest pain free now. Not a candidate for cardiac catheterization given significant anemia requiring blood transfusions, prohibiting anticoagulant / antiplatelet therapy. Also has newly found metastatic disease, and appears to likely have an overall poor prognosis. (2) Cardiomyopathy: Code(s): I42.9 - Cardiomyopathy, unspecified Status: Acute Assessment and Plan: Echocardiogram shows LVEF 30-35% with regional wall motion abnormalities that would be consistent with an LAD infarction or Takotsubo cardiomyopathy. He currently appears euvolemic. Continue Losartan, Metoprolol. 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 Given that it is non-obstructing, do not recommend further workup at this time, especially since he has more concerning issues at this time (metastatic disease, GI bleeding, anemia requiring transfusions). (4) COVID-19: Code(s): U07.1 - COVID-19 Status: Acute Assessment and Plan: COVID positive on admission. Management as per primary team. (5) Metastatic disease: Code(s): C79.9 - Secondary malignant neoplasm of unspecified site Status: Acute Assessment and Plan: GI consulted. Recommend Oncology consultation, however, it appears that they are not going to be available at this institution until March.....(no one listed on the on-call sheets) (6) Acute hyponatremia: Code(s): E87.1 - Hypo-osmolality and hyponatremia Status: Acute Assessment and Plan: Sodium is 117. Recommend Nephrology consultation. (7) Acute GI bleeding: Code(s): K92.2 - Gastrointestinal hemorrhage, unspecified Status: Acute Assessment and Plan: GI consulted. (8) Acute anemia: Code(s): D64.9 - Anemia, unspecified Status: Acute Assessment and Plan: Now requiring blood transfusions. Recommend transfusing for Hgb <8 given his ID. Subjective Date/time seen: 03/24/24 12:06 Interval history: Reason for visit: Myocardial infarction HPI: This is a 73-year-old man I am seeing today at the request of the hospitalist because of clear evidence sinus chart that he has sustained an anterior myocardial infarction. I do not have any evidence of seeing this patient in the past and he does not report any prior history of heart disease. He sees Dr. Joel as his PCP and those notes do not indicate any previous history of cardiac problems. The patient came to the hospital emergency room early this morning feeling poorly with generalized weakness and fatigue he also reported that over the last 2-3 weeks or so he has been having chest pain. He describes the chest pain as a burning like low substernal pain that has been there for a couple of weeks. It is not there currently. He was evaluated in the emergency room and his electrocardiogram shows sinus rhythm with evidence of a previous anterior infarction which was not evident on electrocardiogram done in December of this year. The patient also was severely anemic with a hemoglobin of [address] scan was done which appears to show clear evidence of metastatic carcinoma of the colon with a large rectal mass with significant abdominal and thoracic metastatic disease. The patient according to the clinic notes was found to have a positive Cologuard a number of years ago but refused pursuing that with a colonoscopy. In this setting I am seeing him in consultation. Apparently he has a history of recent/ previous DVTs and he ruiz
[2024-03-24] MEDS: SODIUM CHLORIDE 0.9% IV 250 ML 30 ML IV CONT (12:22)
--- NOTE | 2024-03-24 12:53 | P.CONNP_ITS ---
Assessment and Plan Assessment and plan (1) Hyponatremia: Code(s): E87.1 - Hypo-osmolality and hyponatremia Status: Acute Assessment and Plan: * present since last October 2023 * however, worse on admission with a reading of 120mmol/L * now down to 117mmol/L by AM labs * multiple risk factors: * metastatic malignancy * COVID-19 infection * cardiomyopathy (as noted by recent Echo) * prerenal factors * emphysema (as noted by chest CT) * pleural effusions (noted on CT of chest) * already initiated on salt tabs and fluid restriction * check urine studies, TSH, and cortisol * follow trend of repeat sodium (2) Non-STEMI (non-ST elevated myocardial infarction): Code(s): I21.4 - Non-ST elevation (NSTEMI) myocardial infarction Status: Inactive Assessment and Plan: * Cardiology following * noted by EKG findings * chest pain free currently * not a candidate for cardiac catheterization at that this time given significant other concurrent medical issues * Echo noted: * LVEF 30-35% * regional wall motion abnormalities that would be consistent with an LAD infarction or Takotsubo cardiomyopathy * continue medical therapy (3) Acute GI bleeding: Code(s): K92.2 - Gastrointestinal hemorrhage, unspecified Status: Acute Assessment and Plan: * as noted by low H/H and + FOBT * suspect secondary rectal mass/colon cancer * PRBC transfusion per protocol * hold blood thinners/anticoagulation * follow trend of H/H (4) Metastatic cancer: Code(s): C79.9 - Secondary malignant neoplasm of unspecified site Status: Acute Assessment and Plan: * as evidence by imaging on admission * admission symptoms noted as well -- weight loss, worsening anemia, diarrhea and dimisnished appetite * suspect primary is rectal mass (suspected colon cancer) * noted plans for lymph node biopsy for definitive diagnosis (5) Rectal mass: Code(s): K62.89 - Other specified diseases of anus and rectum Status: Acute Assessment and Plan: * as noted by admission imaging * presumed colon cancer * not a candidate for colonoscopy given recent NSTEMI as well as COVID positivity * GI following (6) COVID-19: Code(s): U07.1 - COVID-19 Status: Acute Assessment and Plan: * on isolation * no evidence of hypoxia or respiratory distress * no need for remdesivir or steroids at this time I will continue follow patient with you while he remains hospitalized and make further recommendations as deemed necessary. Thank you for allowing me to participate in care of this patient. History of Present Illness Reason for Consult Consult date: 03/24/24 Reason for consult: hyponatremia Chief Complaint Chief complaint: NSTEMI/GI Bleed/Anemia/Hyponatremia/Rectal Mass W History of Present Illness Narrative: The patient is a 73-year-old male with a past medical history as outlined below who presented to [facility] Emergency Room with complaints of generalized weakness. The patient states that he has been having discomfort in his chest for several weeks. In association with this symptom, he has felt run down tired and lethargic along with some discomfort in his chest that he associated with his previous COVID infection several months ago. Since his COVID infection, he feels he has not fully recovered or bounce back in general. On further questioning, he also reports the blood in his stools and apparently was scheduled to see gastroenterology a
--- NOTE | 2024-03-24 12:53 | PM.CNNEP ---
Assessment and Plan Assessment and plan (1) Hyponatremia: Code(s): E87.1 - Hypo-osmolality and hyponatremia Status: Acute Assessment and Plan: present since last October 2023 however, worse on admission with a reading of 120mmol/L now down to 117mmol/L by AM labs multiple risk factors: metastatic malignancy COVID-19 infection cardiomyopathy (as noted by recent Echo) prerenal factors emphysema (as noted by chest CT) pleural effusions (noted on CT of chest) already initiated on salt tabs and fluid restriction check urine studies, TSH, and cortisol follow trend of repeat sodium (2) Non-STEMI (non-ST elevated myocardial infarction): Code(s): I21.4 - Non-ST elevation (NSTEMI) myocardial infarction Status: Inactive Assessment and Plan: Cardiology following noted by EKG findings chest pain free currently not a candidate for cardiac catheterization at that this time given significant other concurrent medical issues Echo noted: LVEF 30-35% regional wall motion abnormalities that would be consistent with an LAD infarction or Takotsubo cardiomyopathy continue medical therapy (3) Acute GI bleeding: Code(s): K92.2 - Gastrointestinal hemorrhage, unspecified Status: Acute Assessment and Plan: as noted by low H/H and + FOBT suspect secondary rectal mass/colon cancer PRBC transfusion per protocol hold blood thinners/anticoagulation follow trend of H/H (4) Metastatic cancer: Code(s): C79.9 - Secondary malignant neoplasm of unspecified site Status: Acute Assessment and Plan: as evidence by imaging on admission admission symptoms noted as well -- weight loss, worsening anemia, diarrhea and dimisnished appetite suspect primary is rectal mass (suspected colon cancer) noted plans for lymph node biopsy for definitive diagnosis (5) Rectal mass: Code(s): K62.89 - Other specified diseases of anus and rectum Status: Acute Assessment and Plan: as noted by admission imaging presumed colon cancer not a candidate for colonoscopy given recent NSTEMI as well as COVID positivity GI following (6) COVID-19: Code(s): U07.1 - COVID-19 Status: Acute Assessment and Plan: on isolation no evidence of hypoxia or respiratory distress no need for remdesivir or steroids at this time I will continue follow patient with you while he remains hospitalized and make further recommendations as deemed necessary. Thank you for allowing me to participate in care of this patient. History of Present Illness Reason for Consult Consult date: 03/24/24 Reason for consult: hyponatremia Chief Complaint Chief complaint: NSTEMI/GI Bleed/Anemia/Hyponatremia/Rectal Mass W History of Present Illness Narrative: The patient is a 73-year-old male with a past medical history as outlined below who presented to [facility] Emergency Room with complaints of generalized weakness. The patient states that he has been having discomfort in his chest for several weeks. In association with this symptom, he has felt run down tired and lethargic along with some discomfort in his chest that he associated with his previous COVID infection several months ago. Since his COVID infection, he feels he has not fully recovered or bounce back in general. On further questioning, he also reports the blood in his stools and apparently was scheduled to see gastroenterology as an outpatient. However, given his symptoms as mentioned, he presented to the ER for further assessment. Workup and evaluation emergency room demonstrated an EKG with nonspecific T-wave abnormalities and initial troponin of 2.96. Cardiology was consulted from the ER and was agree that this was not a ST elevation OK but there was some concern that this did represent possible acute coronary syndrome/ a non ST elevation OK. further labs noted a hemoglobin of 7.1
--- NOTE | 2024-03-24 13:56 | WPDGIPROGNO ---
Progress Note: A&P Assessment and Plan (1) Metastatic disease: Code(s): C79.9 - Secondary malignant neoplasm of unspecified site Status: Acute Assessment and Plan: prognosis is guarded IR biopsy of supraclavicular lymph node (it is large enough) instead of colonoscopy (had recent OH and currently COVID with cardiomyopathy- not a good candidate for anesthesia and I do not think that colonoscopy will make a difference)- also recommend oncology consult after biopsy (2) Rectal mass: Code(s): K62.89 - Other specified diseases of anus and rectum Status: Acute Assessment and Plan: probably primary (3) Non-STEMI (non-ST elevated myocardial infarction): Code(s): I21.4 - Non-ST elevation (NSTEMI) myocardial infarction Status: Acute Assessment and Plan: by cardiology not a candidate for invasive intervention (4) Anterior wall myocardial infarction: Code(s): I21.09 - ST elevation (STEMI) myocardial infarction involving other coronary artery of anterior wall Status: Acute (5) COVID-19: Code(s): U07.1 - COVID-19 Status: Acute (6) Cardiomyopathy: Code(s): I42.9 - Cardiomyopathy, unspecified Status: Acute (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 Status: Acute (8) Acute anemia: Code(s): D64.9 - Anemia, unspecified Status: Acute Assessment and Plan: by metastatic disease hem-onc consult Subjective Date/time seen: 03/24/24 13:56 Interval history: no chest pain, he is comfortable today getting one unit prbc Review of Systems Review of Systems: All systems reviewed & are unremarkable except as noted in HPI and below Exam Const: General: comfortable and no acute distress Other: thin underweight chronically ill-appearing HENMT: Mouth: Yes moist mucous membranes Eyes: Sclera: sclerae normal Neck: Neck: supple Other: large lymph node in Rt supraclavicular site Resp: Effort & Inspection: normal respiratory effort Cardio: Rate: regular rate Rhythm: regular rhythm GI: GI Palp: Yes Soft to palpation and No Tenderness to palpation present (GI) Auscultation: normal bowel sounds Skin: Other: pallor Neuro: Speech: normal speech Motor exam (neuro): 5/5 motor strength present throughout Other: alert and oriented x3 Extrem: General: normal to inspection Psych: Affect: normal affect Objective Data Vital Signs Vital Signs: Vital Signs - 24 hr 03/23/24 16:00 03/23/24 16:00 03/23/24 16:00 Temperature 98.6 F Pulse Rate 89 90 Respiratory Rate 14 Blood Pressure 96/34 L Pulse Oximetry 100 Oxygen Delivery Room Air 03/23/24 17:55 03/23/24 18:00 03/23/24 20:00 Temperature Pulse Rate 92 Respiratory Rate Blood Pressure 111/39 L Pulse Oximetry Oxygen Delivery Room Air 03/23/24 20:00 03/23/24 23:58 03/24/24 00:00 Temperature 98.6 F 97.3 F L Pulse Rate 93 88 Respiratory Rate 16 16 Blood Pressure 112/49 L 110/40 L Pulse Oximetry 97 93 Oxygen Delivery Room Air 03/23/24 20:00 03/23/24 22:00 03/24/24 00:00 Temperature Pulse Rate 96 93 91 Respiratory Rate Blood Pressure Pulse Oximetry Oxygen Delivery 03/24/24 01:59 03/24/24 02:35 03/24/24 04:00 Temperature 98.3 F 98.6 F Pulse Rate 88 87 92 Respiratory Rate 16 16 Blood Pressure 108/49 L 107/49 L Pulse Oximetry 96 97 Oxygen Delivery 03/24/24 04:00 03/24/24 04:00 03/24/24 06:00 Temperature Pulse Rate 93 81 Respiratory Rate Blood Pressure Pulse Oximetry Oxygen Delivery Room Air 03/24/24 07:55 03/24/24 08:00 03/24/24 09:39 Temperature 97.5 F L Pulse Rate 83 90 Respiratory Rate 18 Blood Pressure 102/42 L Pulse Oximetry 89 L Oxygen Delivery Room Air 03/24/24 11:27 03/24/24 08:00 03/24/24 10:00 Temperature 97.6 F Pulse Rate 87 87 85 Respiratory Rate 18 Blood Pressu
--- NOTE | 2024-03-24 15:18 | WPDPN ---
Progress Note: A&P Assessment and Plan (1) Non-STEMI (non-ST elevated myocardial infarction): Code(s): I21.4 - Non-ST elevation (NSTEMI) myocardial infarction Status: Acute Assessment and Plan: Patient with complaint of chest pain is elevated tropes clockmaker suspect nondistended and further recommendation to follow. (2) Acute hyponatremia: Code(s): E87.1 - Hypo-osmolality and hyponatremia Status: Acute Assessment and Plan: Etiology uncertain most likely secondary to GI cancer will gently hydrate the patient consult payable manager for further recommendation (3) Rectal mass: Code(s): K62.89 - Other specified diseases of anus and rectum Status: Acute Assessment and Plan: Patient be seen by GI and further recommendation to follow (4) Acute GI bleeding: Code(s): K92.2 - Gastrointestinal hemorrhage, unspecified Status: Acute Assessment and Plan: Most likely secondary to colon mass will monitor H&H. (5) Acute anemia: Code(s): D64.9 - Anemia, unspecified Status: Acute (6) Type 2 diabetes mellitus with diabetic polyneuropathy: Code(s): E11.42 - Type 2 diabetes mellitus with diabetic polyneuropathy Status: Acute Assessment and Plan: Apparently patient is not on any anti diabetic medication will monitor with sliding scale and further recommendation to follow. Plan Patient states in December his was diagnosed with COVID however he was not tested and presumed he is also positive for COVID did not have any complain of cough or shortness of breath, been noticing some blood in the stool and also been in contact with GI for further evaluation however patient had not been seen, today patient presented emergency depart with complaint of worsening weakness and tired, during ER rectal exam for anemia patient was stool Hemoccult was positive and ER physician felt a mass in the rectum. Patient the complaint of chest discomfort patient had tropes which were elevated 2.96 cardiology was consulted because the patient rectal bleeding and mass in the rectum heparin was not started patient was placed on aspirin, statin and patient was seen by the Cardiology does not recommend any invasive work as patient is bleeding, has rectal mass, unable to coagulate the patient in the event patient needs stents, furthermore recommended hospice for the patient, I discussed with the patient on 03/23, he is not ready for hospice now, today he was seen by a GI, recommended IR biopsy of supraclavicular lymp node it its large node, and does not recommended colonoscopy as patient is quite ill, today patient sodium is low to 117, will start fluid restriction and salt tablets, will consult payable manager for further recommendation. and further recommendation to follow. His is present in the room Subjective Date/time seen: 03/24/24 15:18 Interval history: Patient states in December his was diagnosed with COVID however he was not tested and presumed he is also positive for COVID did not have any complain of cough or shortness of breath, been noticing some blood in the stool and also been in contact with GI for further evaluation however patient had not been seen, today patient presented emergency depart with complaint of worsening weakness and tired, during ER rectal exam for anemia patient was stool Hemoccult was positive and ER physician felt a mass in the rectum. Patient the complaint of chest discomfort patient had tropes which were elevated 2.96 cardiology was consulted because the patient rectal bleeding and mass in the rectum heparin was not started patient was placed on aspirin, statin and patient was seen by the Cardiology does not recommend any invasive work as patient is bleeding, has rectal mass, unable to coagulate the patient in the event patient needs stents, furthermore recommended hospice for the patient, I discussed with the patient on 03/23, he is not ready for hospice
[2024-03-24] MEDS: SODIUM CHLORIDE 1 GM TABLET PO ×2 (16:00)
[2024-03-24 16:27] LABS: Glucose Point of Care 174 mg/dl (65-105)
[2024-03-24 19:12] LABS: Anion Gap 8 mmol/L (4-12); Blood Urea Nitrogen 16 mg/dL (9-20); Calcium 7.5 mg/dL (8.4-10.2); Carbon Dioxide 21 mmol/L (22-30); Chloride 86 mmol/L (98-107); Estimated CRCL calculation 77 ml/min; Estimated Glomerular Filt Rate > 60; Glucose 179 mg/dL (65-110); Magnesium 1.5 mg/dL (1.6-2.3); Potassium 4.5 mmol/L (3.4-5.0); Sodium 115 mmol/L (137-145)
[2024-03-24] MEDS: TUBING, BLOOD PLUM PUMP TUBING 1 EACH XX (19:55)
[2024-03-24 20:34] LABS: Glucose Point of Care 194 mg/dl (65-105)
[2024-03-24] MEDS: SODIUM CHLORIDE 3% 180 ML 60 ML IV CONT (21:07)
[2024-03-24 21:44] LABS: Creatinine Urine 115.5 mg/dL; Total Protein Urine Random 9 mg/dL; Ur Ttl Prot Creatinine Ratio 0.08 mg/mg (0-0.20)
[2024-03-24 21:45] LABS: Urea Random Urine 901 MG/DL
[2024-03-25] VITALS (21 sets, daily range): BP systolic 104–115; BP diastolic 43–61; PULSE 79–97; RESP 12–20; TEMP 36.3–36.9; O2SAT 92–97
[2024-03-25 01:15] LABS: Magnesium 1.5 mg/dL (1.6-2.3)
[2024-03-25 02:05] LABS: Anion Gap 6 mmol/L (4-12); Blood Urea Nitrogen 14 mg/dL (9-20); Calcium 7.5 mg/dL (8.4-10.2); Carbon Dioxide 18 mmol/L (22-30); Chloride 90 mmol/L (98-107); Estimated CRCL calculation 77 ml/min; Estimated Glomerular Filt Rate > 60; Glucose 175 mg/dL (65-110); Sodium 114 mmol/L (137-145)
[2024-03-25 05:37] LABS: Basophils Absolute Auto 0.1 K/mm3 (0.0-0.1); Basophils Percent Auto 0.3 % (0.2-1.2); Eosinophils Absolute Auto 0.2 K/mm3 (0-0.3); Eosinophils Percent Auto 1.3 % (0-4.4); Hematocrit 29.1 % (42.0-52.0); Hemoglobin 8.8 g/dL (14.0-18.0); Immature Granulocyte Percent A 1.3 % (0-0.5); Mean Corpuscular HGB Conc 30.2 g/dl (32-36); Mean Corpuscular Hemoglobin 23.7 pg (26-34); Mean Corpuscular Volume 78.4 fl (80-100); Mean Platelet Volume 9.4 fl (7.4-10.4); Monocytes Absolute Auto 1.1 K/mm3 (0.1-0.6); Monocytes Percent Auto 7.3 % (2.6-8.5); Neutrophils Absolute Auto 12.5 K/mm3 (1.3-6.7); Neutrophils Percent Auto 83.8 % (45.5-73.1); Platelet Count Result 250 k/mm3 (150-375); Red Blood Count 3.71 M/mm3 (4.6-6.20); Red Cell Distribution Width 17.8 % (11.5-14.5); White Blood Count 14.9 K/mm3 (4.5-10.0)
[2024-03-25 05:45] LABS: INR 1.2; Prothrombin Time 15.6 Seconds (11.1-14.7)
[2024-03-25 05:47] LABS: Partial Thromboplastin Time 33.4 Seconds (22.3-36.8)
[2024-03-25 06:06] LABS: Alanine Aminotransferase 12 U/L (6-50); Albumin Level 2.4 g/dL (3.5-5.1); Alkaline Phosphatase 76 U/L (38-126); Anion Gap 6 mmol/L (4-12); Aspartate Amino Transferase 40 U/L (17-59); Bilirubin,Total 0.5 mg/dL (0.2-1.3); Blood Urea Nitrogen 15 mg/dL (9-20); Calcium 7.7 mg/dL (8.4-10.2); Carbon Dioxide 21 mmol/L (22-30); Chloride 88 mmol/L (98-107); Estimated CRCL calculation 72 ml/min; Estimated Glomerular Filt Rate > 60; Glucose 154 mg/dL (65-110); Magnesium 1.6 mg/dL (1.6-2.3); Potassium 4.3 mmol/L (3.4-5.0); Sodium 115 mmol/L (137-145)
[2024-03-25 07:58] LABS: Free T4 Free Thyroxine Reflex 1.32 ng/dL (0.78-2.19)
[2024-03-25] MEDS: SODIUM CHLORIDE 3% 195 ML 65 ML IV CONT (08:15)
[2024-03-25] MEDS: SODIUM CHLORIDE 1 GM TABLET PO ×3 (08:30→17:18)
[2024-03-25] MEDS: ATORVASTATIN 20 MG TABLET PO (08:30)
[2024-03-25 08:41] LABS: Glucose Point of Care 161 mg/dl (65-105)
--- NOTE | 2024-03-25 09:29 | PC.NURSE ---
Discussed pt statues with Dr. Issa. Na 115. Currently NSR with HR 79. Ok to go to U/S without nurse.
--- NOTE | 2024-03-25 10:42 | PM.PNNEP ---
Progress Note: A&P Assessment and Plan (1) Hyponatremia: Code(s): E87.1 - Hypo-osmolality and hyponatremia Status: Acute Assessment and Plan: present since last October 2023 however, worse on admission with a reading of 120mmol/L now down to 117mmol/L by AM labs multiple risk factors: metastatic malignancy COVID-19 infection cardiomyopathy (as noted by recent Echo) prerenal factors emphysema (as noted by chest CT) pleural effusions (noted on CT of chest) already initiated on salt tabs and fluid restriction getting runs of 3% saline as well follow trend of repeat sodium (2) Non-STEMI (non-ST elevated myocardial infarction): Code(s): I21.4 - Non-ST elevation (NSTEMI) myocardial infarction Status: Inactive Assessment and Plan: Cardiology following noted by EKG findings chest pain free currently not a candidate for cardiac catheterization at that this time given significant other concurrent medical issues Echo noted: LVEF 30-35% regional wall motion abnormalities that would be consistent with an LAD infarction or Takotsubo cardiomyopathy continue medical therapy (3) Acute GI bleeding: Code(s): K92.2 - Gastrointestinal hemorrhage, unspecified Status: Acute Assessment and Plan: as noted by low H/H and + FOBT suspect secondary rectal mass/colon cancer PRBC transfusion per protocol hold blood thinners/anticoagulation follow trend of H/H (4) Metastatic cancer: Qualifiers: Area of secondary neoplastic involvement: unspecified site Qualified Code(s): C79.9 - Secondary malignant neoplasm of unspecified site Code(s): C79.9 - Secondary malignant neoplasm of unspecified site Status: Acute Assessment and Plan: as evidence by imaging on admission admission symptoms noted as well -- weight loss, worsening anemia, diarrhea and dimisnished appetite suspect primary is rectal mass (suspected colon cancer) noted plans for lymph node biopsy for definitive diagnosis (5) Rectal mass: Code(s): K62.89 - Other specified diseases of anus and rectum Status: Acute Assessment and Plan: as noted by admission imaging presumed colon cancer not a candidate for colonoscopy given recent NSTEMI as well as COVID positivity GI following (6) COVID-19: Code(s): U07.1 - COVID-19 Status: Acute Assessment and Plan: on isolation no evidence of hypoxia or respiratory distress no need for remdesivir or steroids at this time Will continue to follow. Subjective Date/time seen: 03/25/24 10:42 Interval history: Follow-up for acute on chronic hyponatremia. Despite use of 3% saline yesterday, no significant improvement in sodium level; getting another round of 3% saline currently in an effort to get sodium level closer to 120mmol/L; just got back to room after getting lymph node biopsy by IR; major complaint remains feeling weak and fatigued. Exam Narrative: General: elderly and frail male in NAD Heart: normal S1 and S2; no rub Lungs: clear anteriorly Abdomen: soft, nontender, nondistended, positive bowel sounds Extremities: no cyanosis or clubbing; no edema Skin: warm and dry Objective Data Vital Signs Vital Signs: Vital Signs Temp Pulse Resp BP Pulse Ox O2 Del Method 03/25/24 10:00 82 03/25/24 08:00 79 03/25/24 08:27 97.4 F L 81 110/43 L 03/25/24 08:00 Room Air 03/25/24 08:29 80 03/25/24 08:28 97.4 F L 80 12 108/49 L 96 03/25/24 06:00 79 03/25/24 05:48 97.6 F 82 18 110/61 97 03/25/24 04:00 79 03/25/24 04:00 Room Air 03/25/24 02:00 79 03/25/24 00:00 84 03/24/24 22:00 87 03/24/24 20:00 84 03/25/24 00:00 Room Air 03/25/24 00:36 97.8 F 84 18 110/49 L 95 03/24/24 21:17 Room Air 03/24/24 20:29 97.8 F 89 18 122/58 L 97
--- NOTE | 2024-03-25 10:42 | P.PNNP_ITS ---
Progress Note: A&P Assessment and Plan (1) Hyponatremia: Code(s): E87.1 - Hypo-osmolality and hyponatremia Status: Acute Assessment and Plan: * present since last October 2023 * however, worse on admission with a reading of 120mmol/L * now down to 117mmol/L by AM labs * multiple risk factors: * metastatic malignancy * COVID-19 infection * cardiomyopathy (as noted by recent Echo) * prerenal factors * emphysema (as noted by chest CT) * pleural effusions (noted on CT of chest) * already initiated on salt tabs and fluid restriction * getting runs of 3% saline as well * follow trend of repeat sodium (2) Non-STEMI (non-ST elevated myocardial infarction): Code(s): I21.4 - Non-ST elevation (NSTEMI) myocardial infarction Status: Inactive Assessment and Plan: * Cardiology following * noted by EKG findings * chest pain free currently * not a candidate for cardiac catheterization at that this time given significant other concurrent medical issues * Echo noted: * LVEF 30-35% * regional wall motion abnormalities that would be consistent with an LAD infarction or Takotsubo cardiomyopathy * continue medical therapy (3) Acute GI bleeding: Code(s): K92.2 - Gastrointestinal hemorrhage, unspecified Status: Acute Assessment and Plan: * as noted by low H/H and + FOBT * suspect secondary rectal mass/colon cancer * PRBC transfusion per protocol * hold blood thinners/anticoagulation * follow trend of H/H (4) Metastatic cancer: Qualifiers: Area of secondary neoplastic involvement: unspecified site Qualified Co de(s): C79.9 - Secondary malignant neoplasm of unspecified site Code(s): C79.9 - Secondary malignant neoplasm of unspecified site Status: Acute Assessment and Plan: * as evidence by imaging on admission * admission symptoms noted as well -- weight loss, worsening anemia, diarrhea and dimisnished appetite * suspect primary is rectal mass (suspected colon cancer) * noted plans for lymph node biopsy for definitive diagnosis (5) Rectal mass: Code(s): K62.89 - Other specified diseases of anus and rectum Status: Acute Assessment and Plan: * as noted by admission imaging * presumed colon cancer * not a candidate for colonoscopy given recent NSTEMI as well as COVID positivity * GI following (6) COVID-19: Code(s): U07.1 - COVID-19 Status: Acute Assessment and Plan: * on isolation * no evidence of hypoxia or respiratory distress * no need for remdesivir or steroids at this time Will continue to follow. Subjective Date/time seen: 03/25/24 10:42 Interval history: Follow-up for acute on chronic hyponatremia. Despite use of 3% saline yesterday, no significant improvement in sodium level; getting another round of 3% saline currently in an effort to get sodium level closer to 120mmol/L; just got back to room after getting lymph node biopsy by IR; major complaint remains feeling weak and fatigued. Exam Narrative: General: elderly and frail male in NAD Heart: normal S1 and S2; no rub Lungs: clear anteriorly Abdomen: soft, nontender, nondistended, positive bowel sounds Extremities: no cyanosis or clubbing; no edema Skin: warm and dry Objective Data Vital Signs Vital Signs: Vital Signs Temp Pulse Resp BP Puls
[2024-03-25 12:33] LABS: Total Triiodothyronine (T3) 0.66 NG/ML (0.97-1.69)
[2024-03-25 12:59] LABS: Glucose Point of Care 157 mg/dl (65-105)
[2024-03-25 13:09] LABS: Sodium 117 mmol/L (137-145)
--- NOTE | 2024-03-25 13:38 | WPDGIPROGNO ---
Progress Note: A&P Assessment and Plan (1) Metastatic disease: Code(s): C79.9 - Secondary malignant neoplasm of unspecified site Status: Acute Assessment and Plan: prognosis is poor just completed biopsy of supraclavicular lymph node, probably will be enough to confirm diagnosis of malignancy. Since he has widespread metastatic disease probably we do not need to proceed with colonoscopy specially since he presented with NSTEMI, COVID, EF 30% and persistent low Na ~ 117- not a good candidate for anesthesia oncology consult pending (2) Rectal mass: Code(s): K62.89 - Other specified diseases of anus and rectum Status: Acute Assessment and Plan: probably primary (3) Non-STEMI (non-ST elevated myocardial infarction): Code(s): I21.4 - Non-ST elevation (NSTEMI) myocardial infarction Status: Acute Assessment and Plan: by cardiology not a candidate for invasive intervention given anemia and metastatic disease (4) Anterior wall myocardial infarction: Code(s): I21.09 - ST elevation (STEMI) myocardial infarction involving other coronary artery of anterior wall Status: Acute Assessment and Plan: medical treatment per cardiology (5) COVID-19: Code(s): U07.1 - COVID-19 Status: Acute (6) Cardiomyopathy: Code(s): I42.9 - Cardiomyopathy, unspecified Status: Acute (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 Status: Acute (8) Acute anemia: Code(s): D64.9 - Anemia, unspecified Status: Acute Assessment and Plan: by metastatic disease hem-onc consult no overt gib transfuse as needed to keep hgb>7 (9) Acute hyponatremia: Code(s): E87.1 - Hypo-osmolality and hyponatremia Status: Acute Subjective Date/time seen: 03/25/24 13:38 Interval history: just had LN biopsy he is comfortable Review of Systems Review of Systems: All systems reviewed & are unremarkable except as noted in HPI and below Exam Const: General: comfortable and no acute distress Other: thin underweight chronically ill-appearing HENMT: Mouth: Yes moist mucous membranes Eyes: Sclera: sclerae normal Neck: Neck: supple Other: dressing at lymph node in supraclavicular site Resp: Effort & Inspection: normal respiratory effort Cardio: Rate: regular rate Rhythm: regular rhythm GI: GI Palp: Yes Soft to palpation and No Tenderness to palpation present (GI) Auscultation: normal bowel sounds Skin: Other: pallor Neuro: Speech: normal speech Motor exam (neuro): 5/5 motor strength present throughout Other: alert and oriented x3 Extrem: General: normal to inspection Psych: Affect: normal affect Objective Data Vital Signs Vital Signs: Vital Signs - 24 hr 03/24/24 14:20 03/24/24 15:20 03/24/24 15:33 Temperature 99.0 F 98.9 F 98.9 F Pulse Rate 92 92 92 Respiratory Rate 20 18 18 Blood Pressure 130/58 L 131/55 L 131/55 L Pulse Oximetry 91 91 91 Oxygen Delivery 03/24/24 16:00 03/24/24 14:00 03/24/24 16:00 Temperature Pulse Rate 92 92 Respiratory Rate Blood Pressure Pulse Oximetry Oxygen Delivery Room Air 03/24/24 18:00 03/24/24 20:29 03/24/24 21:17 Temperature 97.8 F Pulse Rate 88 89 Respiratory Rate 18 Blood Pressure 122/58 L Pulse Oximetry 97 Oxygen Delivery Room Air 03/25/24 00:36 03/25/24 00:00 03/24/24 20:00 Temperature 97.8 F Pulse Rate 84 84 Respiratory Rate 18 Blood Pressure 110/49 L Pulse Oximetry 95 Oxygen Delivery Room Air 03/24/24 22:00 03/25/24 00:00 03/25/24 02:00 Temperature Pulse Rate 87 84 79 Respiratory Rate Blood Pressure Pulse Oximetry Oxygen Delivery 03/25/24 04:00 03/25/24 04:00 03/25/24 05:48 Temperature 97.6 F Pulse Rate 79 82 Respiratory Rate 18 Blood Pressure 110/61 Pulse Oximetry 97 Oxygen Delivery Room Air 03/25/24 06:0
[2024-03-25 13:39] LABS: Basophils Percent Auto 0.3 % (0.2-1.2); Eosinophils Absolute Auto 0.1 K/mm3 (0-0.3); Eosinophils Percent Auto 0.8 % (0-4.4); Immature Granulocyte Absolute 0.22 K/mm3 (0.00-0.031); Immature Granulocyte Percent A 1.5 % (0-0.5); Lymphocytes Absolute Auto 0.73 K/mm3 (0.9-3.2); Mean Corpuscular Hemoglobin 24.1 pg (26-34); Mean Corpuscular Volume 77.7 fl (80-100); Mean Platelet Volume 9.6 fl (7.4-10.4); Monocytes Absolute Auto 0.9 K/mm3 (0.1-0.6); Monocytes Percent Auto 6.3 % (2.6-8.5); Neutrophils Absolute Auto 12.7 K/mm3 (1.3-6.7); Neutrophils Percent Auto 86.1 % (45.5-73.1); Platelet Count Result 247 k/mm3 (150-375); Red Blood Count 3.73 M/mm3 (4.6-6.20); Red Cell Distribution Width 17.8 % (11.5-14.5); White Blood Count 14.7 K/mm3 (4.5-10.0)
[2024-03-25] MEDS: FUROSEMIDE 10 MG TABLET PO ×2 (13:45→17:18)
[2024-03-25 16:59] LABS: Glucose Point of Care 168 mg/dl (65-105)
--- NOTE | 2024-03-25 18:21 | PDONCCN ---
HPI - Date of Consult Date/Time: 03/25/24 18:21 Requesting Physician: Cecilia Issa MD Primary Care Provider: Miguel Medina MD - Consult Narrative Reason for consult: Metastatic rectal cancer Narrative: Juan Luis Aguilar is a 73 year old male with history of hypertension came into the hospital with generalized weakness and off and on rectal bleeding for last 8 months duration. He was having some chest wall discomfort. He has lost 35 lb weight in last 8 months duration. His was diagnosed with COVID infection. He has been complaining of cough as well. According to patient he think he might have COVID infection in December of 2023. CT chest abdomen and pelvis showed rectal mass consistent with primary malignancy along with lung nodules and lymphadenopathy in chest abdomen and pelvis consistent with metastatic disease. There was bilateral supraclavicular lymphadenopathy. Patient had right supraclavicular lymph node biopsy done. Pathology is pending. Labs showed hemoglobin of 6.9. Patient received 1 unit of packed red blood cell. Review of Systems - Review of Systems All systems reviewed & are unremarkable except as noted in HPI and bel - Neurologic Reports hearing normal, Denies abnormal speech, Denies behavioral changes [facility] Medical History: Medical History (This Medical Record has been edited. Action required.) COVID-19 Metastatic disease Surgical History: Surgical History (This Medical Record has been edited. Action required.) History of amputation of right great toe Onset Date: 2012 Family History: Family History (Last Reviewed 03/22/24 @ 09:11 by Coby Agudelo RN) Father Hypertension Lung cancer Mother Diabetes mellitus - Social History Social History: Social History (This Medical Record has been edited. Action required.) Alcohol Use: Alcohol intake: never Substance Use: Substance use: never Substance use type: does not use Others: Spiritual care concerns: No Living Arrangements: Living arrangements: with family Smoking Status: Smoking status: Former smoker Tobacco type: cigarettes Smoking Pack-years: Smoking packs per day: 1.5 Smoking cigarettes per day: 30.0 Years smoked: 32 Smoking pack-years: 48.00 Social Determinants of Health: Do You Feel Safe in your Home?: No Has the Lack of Transportation Kept You From Medical Appointments or From Getting Medications?: No Within the Past 12 Months, Were You Worried Whether Your Food Would Run Out Before You Got Money to Buy More?: Never True What is Your Housing Situation Today?: I Have Housing Are You Worried That in the Next 2 Months, You May Not Have Your Own Housing to Live In?: No Do You Have Trouble Paying Your Heating Or Electricity Bill?: No Do You Have Trouble Paying For Medicines?: No Are You Currently Unemployed and Looking for Work?: No Highest Level of Education Completed: High School Diploma/GED Do You Have Trouble With Childcare or the Care of a Family Member?: No Exam - Vital Signs Vital Signs - 24 hr 03/24/24 20:29 03/24/24 21:17 03/25/24 00:36 Temperature 36.6 C 36.6 C Pulse Rate 89 84 Respiratory Rate 18 18 Blood Pressure 122/58 L 110/49 L Pulse Oximetry 97 95 Oxygen Delivery Room Air 03/25/24 00:00 03/24/24 20:00 03/24/24 22:00 Temperature Pulse Rate 84 87 Respiratory Rate Blood Pressure Pulse Oximetry Oxygen Delivery Room Air 03/25/24 00:00 03/25/24 02:00 03/25/24 04:00 Temperature Pulse Rate 84 79 Respiratory Rate Blood Pressure Pulse Oximetry Oxygen Delivery Room Air 03/25/24 04:00 03/25/24 05:48 03/25/24 06:00 Temperature 36.4 C Pulse Rate 79 82 79 Respiratory Rate 18 Blood Pressure 110/61 Pulse Oximetry 97 Oxygen Delivery 03/25/24 08:28 03/25/24 08:29 03/25/24 08:00 Temperature 36.3 C L Pulse R
--- NOTE | 2024-03-25 19:29 | WPDPN ---
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 (2) Acute hyponatremia: Code(s): E87.1 - Hypo-osmolality and hyponatremia Status: Acute Assessment and Plan: Etiology uncertain most likely secondary to GI cancer will gently hydrate the patient consult reproduction machine loader for further recommendation (3) Rectal mass: Code(s): K62.89 - Other specified diseases of anus and rectum Status: Acute Assessment and Plan: Patient be seen by GI and further recommendation to follow (4) Acute GI bleeding: Code(s): K92.2 - Gastrointestinal hemorrhage, unspecified Status: Acute Assessment and Plan: Most likely secondary to colon mass will monitor H&H. (5) Acute anemia: Code(s): D64.9 - Anemia, unspecified Status: Acute (6) Type 2 diabetes mellitus with diabetic polyneuropathy: Code(s): E11.42 - Type 2 diabetes mellitus with diabetic polyneuropathy Status: Acute Assessment and Plan: Apparently patient is not on any anti diabetic medication will monitor with sliding scale and further recommendation to follow. Plan Patient states in December his was diagnosed with COVID however he was not tested and presumed he is also positive for COVID did not have any complain of cough or shortness of breath, been noticing some blood in the stool and also been in contact with GI for further evaluation however patient had not been seen, today patient presented emergency depart with complaint of worsening weakness and tired, during ER rectal exam for anemia patient was stool Hemoccult was positive and ER physician felt a mass in the rectum. Patient the complaint of chest discomfort patient had tropes which were elevated 2.96 cardiology was consulted because the patient rectal bleeding and mass in the rectum heparin was not started patient was placed on aspirin, statin and patient was seen by the Cardiology does not recommend any invasive work as patient is bleeding, has rectal mass, unable to coagulate the patient in the event patient needs stents, furthermore recommended hospice for the patient, I discussed with the patient on 03/23, he is not ready for hospice now, 03/24 he was seen by a GI, recommended IR biopsy of supraclavicular lymp node it its large node, and does not recommended colonoscopy as patient is quite ill, today patient had supraclavicular lymph node biopsy, patient is seen by Nephrology patient was 3% saline infusion, today patient sodium is low to 117, start fluid restriction and salt tablets, will continue to monitor further recommendation to follow. Subjective Date/time seen: 03/25/24 19:29 Interval history: Patient states in December his was diagnosed with COVID however he was not tested and presumed he is also positive for COVID did not have any complain of cough or shortness of breath, been noticing some blood in the stool and also been in contact with GI for further evaluation however patient had not been seen, today patient presented emergency depart with complaint of worsening weakness and tired, during ER rectal exam for anemia patient was stool Hemoccult was positive and ER physician felt a mass in the rectum. Patient the complaint of chest discomfort patient had tropes which were elevated 2.96 cardiology was consulted because the patient rectal bleeding and mass in the rectum heparin was not started patient was placed on aspirin, statin and patient was seen by the Cardiology does not recommend any invasive work as patient is bleeding, has rectal mass, unable to coagulate the patient in the event patient needs stents, furthermore recommended hospice for the patient, I discussed with grace
[2024-03-25 19:33] LABS: Sodium 118 mmol/L (137-145)
[2024-03-25 19:53] LABS: Carcinoembryonic Antigen 13.1 ng/mL (0.0-3.0)
[2024-03-25 20:07] LABS: Iron 16 ug/dL (49-181)
[2024-03-25 20:18] LABS: Percent Iron Saturation 6 % (20-50)
[2024-03-25 20:24] LABS: Glucose Point of Care 205 mg/dl (65-105)
[2024-03-25] MEDS: IRON SUCROSE COMPLEX 400 MG, IRON SUCROSE COMPLEX 100 MG in SODIUM CHLORIDE 0.9% IV 250 ML 78.57 MG IVPB (20:24)
[2024-03-26] VITALS (11 sets, daily range): BP systolic 110–117; BP diastolic 43–52; PULSE 81–95; RESP 18–22; TEMP 36.6; O2SAT 89–96
[2024-03-26 01:08] LABS: Sodium 117 mmol/L (137-145)
[2024-03-26 05:43] LABS: Basophils Absolute Auto 0.1 K/mm3 (0.0-0.1); Basophils Percent Auto 0.4 % (0.2-1.2); Eosinophils Absolute Auto 0.2 K/mm3 (0-0.3); Eosinophils Percent Auto 1.3 % (0-4.4); Hematocrit 28.3 % (42.0-52.0); Hemoglobin 8.5 g/dL (14.0-18.0); Immature Granulocyte Absolute 0.26 K/mm3 (0.00-0.031); Immature Granulocyte Percent A 1.5 % (0-0.5); Lymphocytes Absolute Auto 0.82 K/mm3 (0.9-3.2); Lymphocytes Percent Auto 4.8 % (18.3-44.2); Mean Corpuscular Hemoglobin 23.9 pg (26-34); Mean Corpuscular Volume 79.5 fl (80-100); Mean Platelet Volume 9.4 fl (7.4-10.4); Monocytes Absolute Auto 1.3 K/mm3 (0.1-0.6); Monocytes Percent Auto 7.6 % (2.6-8.5); Neutrophils Absolute Auto 14.3 K/mm3 (1.3-6.7); Neutrophils Percent Auto 84.4 % (45.5-73.1); Platelet Count Result 245 k/mm3 (150-375); Red Blood Count 3.56 M/mm3 (4.6-6.20); White Blood Count 16.9 K/mm3 (4.5-10.0)
[2024-03-26 05:59] LABS: Magnesium 1.7 mg/dL (1.6-2.3)
[2024-03-26 06:30] LABS: Anion Gap 8 mmol/L (4-12); Blood Urea Nitrogen 17 mg/dL (9-20); Calcium 7.3 mg/dL (8.4-10.2); Carbon Dioxide 18 mmol/L (22-30); Chloride 89 mmol/L (98-107); Estimated CRCL calculation 86 ml/min; Estimated Glomerular Filt Rate > 60; Glucose 184 mg/dL (65-110); Potassium 3.9 mmol/L (3.4-5.0); Sodium 115 mmol/L (137-145)
[2024-03-26 08:08] LABS: Glucose Point of Care 207 mg/dl (65-105)
[2024-03-26] MEDS: SODIUM CHLORIDE 500 MG TABLET 1500 MG PO ×2 (08:27→18:28)
[2024-03-26] MEDS: FUROSEMIDE 20 MG TABLET PO ×2 (08:29→18:27)
[2024-03-26] MEDS: ATORVASTATIN 20 MG TABLET PO (08:29)
[2024-03-26] MEDS: LOSARTAN POTASSIUM 12.5 MG TABLET PO (08:29)
--- NOTE | 2024-03-26 09:55 | P.PNNP_ITS ---
Progress Note: A&P Assessment and Plan (1) Hyponatremia: Code(s): E87.1 - Hypo-osmolality and hyponatremia Status: Acute Assessment and Plan: * present since last October 2023 * however, worse on admission with a reading of 120mmol/L * now down to 117mmol/L by AM labs * multiple risk factors: * metastatic malignancy * COVID-19 infection * cardiomyopathy (as noted by recent Echo) * prerenal factors * emphysema (as noted by chest CT) * pleural effusions (noted on CT of chest) * already initiated on salt tabs and fluid restriction * getting runs of 3% saline as well * follow trend of repeat sodium (2) Non-STEMI (non-ST elevated myocardial infarction): Code(s): I21.4 - Non-ST elevation (NSTEMI) myocardial infarction Status: Inactive Assessment and Plan: * Cardiology following * noted by EKG findings * chest pain free currently * not a candidate for cardiac catheterization at that this time given significant other concurrent medical issues * Echo noted: * LVEF 30-35% * regional wall motion abnormalities that would be consistent with an LAD infarction or Takotsubo cardiomyopathy * continue medical therapy (3) Acute GI bleeding: Code(s): K92.2 - Gastrointestinal hemorrhage, unspecified Status: Acute Assessment and Plan: * as noted by low H/H and + FOBT * suspect secondary rectal mass/colon cancer * PRBC transfusion per protocol * hold blood thinners/anticoagulation * follow trend of H/H (4) Metastatic cancer: Qualifiers: Area of secondary neoplastic involvement: unspecified site Qualified Co de(s): C79.9 - Secondary malignant neoplasm of unspecified site Code(s): C79.9 - Secondary malignant neoplasm of unspecified site Status: Acute Assessment and Plan: * as evidence by imaging on admission * admission symptoms noted as well -- weight loss, worsening anemia, diarrhea and dimisnished appetite * suspect primary is rectal mass (suspected colon cancer) * noted plans for lymph node biopsy for definitive diagnosis (5) Rectal mass: Code(s): K62.89 - Other specified diseases of anus and rectum Status: Acute Assessment and Plan: * as noted by admission imaging * presumed colon cancer * not a candidate for colonoscopy given recent NSTEMI as well as COVID positivity * GI following (6) COVID-19: Code(s): U07.1 - COVID-19 Status: Acute Assessment and Plan: * on isolation * no evidence of hypoxia or respiratory distress * no need for remdesivir or steroids at this time Will continue to follow. Subjective Date/time seen: 03/26/24 09:55 Interval history: Follow-up for acute on chronic hyponatremia. Despite use of 3% saline, no real significant improvement in sodium level; has since been instituted on salt tablets, fluid restriction, and low dose lasix; s/p lymph node biopsy yesterday and tolerated this procedure without any issues or problems; no apparent distress. Exam Narrative: General: elderly and frail male in NAD Heart: normal S1 and S2; no rub Lungs: clear anteriorly Abdomen: soft, nontender, nondistended, positive bowel sounds Extremities: no cyanosis or clubbing; 1 - 2+ edema Skin: no rash Objective Data Vital Signs Vital Signs: Vital Signs Temp Pulse Resp BP Pulse Ox O2 Del Method F
--- NOTE | 2024-03-26 09:55 | PM.PNNEP ---
Progress Note: A&P Assessment and Plan (1) Hyponatremia: Code(s): E87.1 - Hypo-osmolality and hyponatremia Status: Acute Assessment and Plan: present since last October 2023 however, worse on admission with a reading of 120mmol/L now down to 117mmol/L by AM labs multiple risk factors: metastatic malignancy COVID-19 infection cardiomyopathy (as noted by recent Echo) prerenal factors emphysema (as noted by chest CT) pleural effusions (noted on CT of chest) already initiated on salt tabs and fluid restriction getting runs of 3% saline as well follow trend of repeat sodium (2) Non-STEMI (non-ST elevated myocardial infarction): Code(s): I21.4 - Non-ST elevation (NSTEMI) myocardial infarction Status: Inactive Assessment and Plan: Cardiology following noted by EKG findings chest pain free currently not a candidate for cardiac catheterization at that this time given significant other concurrent medical issues Echo noted: LVEF 30-35% regional wall motion abnormalities that would be consistent with an LAD infarction or Takotsubo cardiomyopathy continue medical therapy (3) Acute GI bleeding: Code(s): K92.2 - Gastrointestinal hemorrhage, unspecified Status: Acute Assessment and Plan: as noted by low H/H and + FOBT suspect secondary rectal mass/colon cancer PRBC transfusion per protocol hold blood thinners/anticoagulation follow trend of H/H (4) Metastatic cancer: Qualifiers: Area of secondary neoplastic involvement: unspecified site Qualified Code(s): C79.9 - Secondary malignant neoplasm of unspecified site Code(s): C79.9 - Secondary malignant neoplasm of unspecified site Status: Acute Assessment and Plan: as evidence by imaging on admission admission symptoms noted as well -- weight loss, worsening anemia, diarrhea and dimisnished appetite suspect primary is rectal mass (suspected colon cancer) noted plans for lymph node biopsy for definitive diagnosis (5) Rectal mass: Code(s): K62.89 - Other specified diseases of anus and rectum Status: Acute Assessment and Plan: as noted by admission imaging presumed colon cancer not a candidate for colonoscopy given recent NSTEMI as well as COVID positivity GI following (6) COVID-19: Code(s): U07.1 - COVID-19 Status: Acute Assessment and Plan: on isolation no evidence of hypoxia or respiratory distress no need for remdesivir or steroids at this time Will continue to follow. Subjective Date/time seen: 03/26/24 09:55 Interval history: Follow-up for acute on chronic hyponatremia. Despite use of 3% saline, no real significant improvement in sodium level; has since been instituted on salt tablets, fluid restriction, and low dose lasix; s/p lymph node biopsy yesterday and tolerated this procedure without any issues or problems; no apparent distress. Exam Narrative: General: elderly and frail male in NAD Heart: normal S1 and S2; no rub Lungs: clear anteriorly Abdomen: soft, nontender, nondistended, positive bowel sounds Extremities: no cyanosis or clubbing; 1 - 2+ edema Skin: no rash Objective Data Vital Signs Vital Signs: Vital Signs Temp Pulse Resp BP Pulse Ox O2 Del Method FiO2 03/26/24 08:00 97.8 F 82 22 H 116/49 L 89 L 03/26/24 06:00 87 03/26/24 04:56 97.9 F 83 18 110/48 L 94 03/26/24 03:55 83 20 92 Room Air 03/26/24 03:54 90 03/26/24 02:00 90 03/26/24 00:00 91 20 92 Room Air 21 03/26/24 00:00 87 03/25/24 23:25 97.7 F 95 20 115/51 L 92 03/25/24 22:00 92 03/25/24 20:00 91 16 95 Room Air 03/25/24 20:00 91 03/25/24 19:59 97.8 F 96 16 111/44 L 95 03/25/24 18:00 97 03/25/24 16:00 92 03/25/24 16:00 Room Air 03/25/24 16:33 98.4 F 90 17 110/57
[2024-03-26 12:04] LABS: Glucose Point of Care 203 mg/dl (65-105)
[2024-03-26 12:17] LABS: Sodium 118 mmol/L (137-145)
--- NOTE | 2024-03-26 13:31 | WPDPN ---
Progress Note: A&P Assessment and Plan (1) Non-STEMI (non-ST elevated myocardial infarction): Code(s): I21.4 - Non-ST elevation (NSTEMI) myocardial infarction Status: Acute Assessment and Plan: Patient with complaint of chest pain is elevated tropes pool manager suspect nondistended and further recommendation to follow. (2) Acute hyponatremia: Code(s): E87.1 - Hypo-osmolality and hyponatremia Status: Acute Assessment and Plan: Etiology uncertain most likely secondary to GI cancer will gently hydrate the patient consult dietary assistant for further recommendation (3) Rectal mass: Code(s): K62.89 - Other specified diseases of anus and rectum Status: Acute Assessment and Plan: Patient be seen by GI and further recommendation to follow (4) Acute GI bleeding: Code(s): K92.2 - Gastrointestinal hemorrhage, unspecified Status: Acute Assessment and Plan: Most likely secondary to colon mass will monitor H&H. (5) Acute anemia: Code(s): D64.9 - Anemia, unspecified Status: Acute (6) Type 2 diabetes mellitus with diabetic polyneuropathy: Code(s): E11.42 - Type 2 diabetes mellitus with diabetic polyneuropathy Status: Acute Assessment and Plan: Apparently patient is not on any anti diabetic medication will monitor with sliding scale and further recommendation to follow. Plan Patient states in December his was diagnosed with COVID however he was not tested and presumed he is also positive for COVID did not have any complain of cough or shortness of breath, been noticing some blood in the stool and also been in contact with GI for further evaluation however patient had not been seen, today patient presented emergency depart with complaint of worsening weakness and tired, during ER rectal exam for anemia patient was stool Hemoccult was positive and ER physician felt a mass in the rectum. Patient the complaint of chest discomfort patient had tropes which were elevated 2.96 cardiology was consulted because the patient rectal bleeding and mass in the rectum heparin was not started patient was placed on aspirin, statin and patient was seen by the Cardiology does not recommend any invasive work as patient is bleeding, has rectal mass, unable to coagulate the patient in the event patient needs stents, furthermore recommended hospice for the patient, I discussed with the patient on 03/23, he is not ready for hospice now, 03/24 he was seen by a GI, recommended IR biopsy of supraclavicular lymp node it its large node, and does not recommended colonoscopy as patient is quite ill, on 03/25 patient had supraclavicular lymph node biopsy, patient is seen by Nephrology patient was 3% saline infusion, today patient sodium is low to 118, start fluid restriction and salt tablets, will continue to monitor further recommendation to follow. Subjective Date/time seen: 03/26/24 13:31 Interval history: Patient states in December his was diagnosed with COVID however he was not tested and presumed he is also positive for COVID did not have any complain of cough or shortness of breath, been noticing some blood in the stool and also been in contact with GI for further evaluation however patient had not been seen, today patient presented emergency depart with complaint of worsening weakness and tired, during ER rectal exam for anemia patient was stool Hemoccult was positive and ER physician felt a mass in the rectum. Patient the complaint of chest discomfort patient had tropes which were elevated 2.96 cardiology was consulted because the patient rectal bleeding and mass in the rectum heparin was not started patient was placed on aspirin, statin and patient was seen by the Cardiology does not recommend any invasive work as patient is bleeding, has rectal mass, unable to coagulate the patient in the event patient needs stents, furthermore recommended hospice for the patient, I discussed with
[2024-03-26 16:01] LABS: Glucose Point of Care 230 mg/dl (65-105)
--- NOTE | 2024-03-26 17:40 | WPDGIPROGNO ---
Progress Note: A&P Assessment and Plan (1) Metastatic disease: Code(s): C79.9 - Secondary malignant neoplasm of unspecified site Status: Acute Assessment and Plan: prognosis is poor IR will complete another biopsy of enlarged lymph node, probably will be enough to confirm diagnosis of malignancy, oncology already on board Since he has widespread metastatic disease I do not think that need to proceed with colonoscopy specially since he presented with NSTEMI, COVID, EF 30% and persistent low Na ~ 115- not a good candidate for anesthesia will follow as needed (2) Rectal mass: Code(s): K62.89 - Other specified diseases of anus and rectum Status: Acute Assessment and Plan: probably primary (3) Non-STEMI (non-ST elevated myocardial infarction): Code(s): I21.4 - Non-ST elevation (NSTEMI) myocardial infarction Status: Acute Assessment and Plan: by cardiology not a candidate for invasive intervention given anemia and metastatic disease (4) Anterior wall myocardial infarction: Code(s): I21.09 - ST elevation (STEMI) myocardial infarction involving other coronary artery of anterior wall Status: Acute Assessment and Plan: medical treatment per cardiology (5) COVID-19: Code(s): U07.1 - COVID-19 Status: Acute (6) Cardiomyopathy: Code(s): I42.9 - Cardiomyopathy, unspecified Status: Acute (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 Status: Acute (8) Acute anemia: Code(s): D64.9 - Anemia, unspecified Status: Acute Assessment and Plan: by metastatic disease hem-onc consult no overt gib transfuse as needed to keep hgb>7 (9) Acute hyponatremia: Code(s): E87.1 - Hypo-osmolality and hyponatremia Status: Acute Subjective Date/time seen: 03/26/24 17:40 Interval history: recent lymph node biopsy was mislabeled, patient agreeable to have another bx no recent changes otherwise Review of Systems Review of Systems: All systems reviewed & are unremarkable except as noted in HPI and below Exam Const: General: comfortable and no acute distress Other: thin underweight chronically ill-appearing HENMT: Mouth: Yes moist mucous membranes Eyes: Sclera: sclerae normal Neck: Neck: supple Other: dressing at lymph node in supraclavicular site Resp: Effort & Inspection: normal respiratory effort Cardio: Rate: regular rate Rhythm: regular rhythm GI: GI Palp: Yes Soft to palpation and No Tenderness to palpation present (GI) Auscultation: normal bowel sounds Skin: Other: pallor Neuro: Speech: normal speech Motor exam (neuro): 5/5 motor strength present throughout Other: alert and oriented x3 Extrem: General: normal to inspection Psych: Affect: normal affect Objective Data Vital Signs Vital Signs: Vital Signs - 24 hr 03/25/24 18:00 03/25/24 19:59 03/25/24 20:00 Temperature 97.8 F Pulse Rate 97 96 91 Respiratory Rate 16 Blood Pressure 111/44 L Pulse Oximetry 95 Oxygen Delivery Fraction of Inspired Oxygen 03/25/24 20:00 03/25/24 22:00 03/25/24 23:25 Temperature 97.7 F Pulse Rate 91 92 95 Respiratory Rate 16 20 Blood Pressure 115/51 L Pulse Oximetry 95 92 Oxygen Delivery Room Air Fraction of Inspired Oxygen 03/26/24 00:00 03/26/24 00:00 03/26/24 02:00 Temperature Pulse Rate 87 91 90 Respiratory Rate 20 Blood Pressure Pulse Oximetry 92 Oxygen Delivery Room Air Fraction of Inspired Oxygen 21 03/26/24 03:54 03/26/24 03:55 03/26/24 04:56 Temperature 97.9 F Pulse Rate 90 83 83 Respiratory Rate 20 18 Blood Pressure 110/48 L Pulse Oximetry 92 94 Oxygen Delivery Room Air Fraction of Inspired Oxygen 21 03/26/24 06:00 03/26/24 08:00 03/26/24 08:00 Temperature 97.8 F Pulse Rate 87 82 81 Respiratory Rate 22 H Blood Pressure 116/49 L Pulse Oximetry 8
[2024-03-26] MEDS: INSULIN ASPART (*BKC) 100 UNITS/ML SUB-Q ×2 (18:28→21:36)
[2024-03-26] MEDS: guaiFENesin/DEXTROMETHORPHAN 10 ML UDC PO ×2 (18:33→21:29)
[2024-03-26 18:54] LABS: Sodium 118 mmol/L (137-145)
[2024-03-26] MEDS: ACETAMINOPHEN 325 MG TABLET 650 MG PO (21:28)
[2024-03-26 21:34] LABS: Glucose Point of Care 264 mg/dl (65-105)
[2024-03-27] VITALS (10 sets, daily range): BP systolic 103–107; BP diastolic 46–51; PULSE 76–85; RESP 18–20; TEMP 36.1–36.9; O2SAT 93–98
[2024-03-27 04:50] LABS: Hematocrit 26.3 % (42.0-52.0); Hemoglobin 8.1 g/dL (14.0-18.0); Mean Corpuscular HGB Conc 30.8 g/dl (32-36); Mean Corpuscular Volume 77.8 fl (80-100); Mean Platelet Volume 9.8 fl (7.4-10.4); Platelet Count Result 205 k/mm3 (150-375); Red Blood Count 3.38 M/mm3 (4.6-6.20); White Blood Count 11.1 K/mm3 (4.5-10.0)
[2024-03-27 04:54] LABS: Magnesium 1.7 mg/dL (1.6-2.3)
[2024-03-27 07:27] LABS: Anion Gap 10 mmol/L (4-12); Blood Urea Nitrogen 16 mg/dL (9-20); Calcium 7.6 mg/dL (8.4-10.2); Carbon Dioxide 20 mmol/L (22-30); Chloride 89 mmol/L (98-107); Estimated CRCL calculation 86 ml/min; Estimated Glomerular Filt Rate > 60; Glucose 161 mg/dL (65-110); Potassium 3.6 mmol/L (3.4-5.0); Sodium 119 mmol/L (137-145)
[2024-03-27 07:50] LABS: Glucose Point of Care 161 mg/dl (65-105)
[2024-03-27] MEDS: FUROSEMIDE 20 MG TABLET PO ×2 (09:45→17:10)
[2024-03-27] MEDS: SODIUM CHLORIDE 500 MG TABLET 1500 MG PO ×2 (09:45→17:10)
[2024-03-27] MEDS: METOPROLOL SUCCINATE EXT REL 25 MG TABCR PO (09:45)
[2024-03-27] MEDS: LOSARTAN POTASSIUM 12.5 MG TABLET PO (09:45)
[2024-03-27] MEDS: ATORVASTATIN 20 MG TABLET PO (09:45)
[2024-03-27 10:35] LABS: Basophils Percent Auto 0.3 % (0.2-1.2); Eosinophils Absolute Auto 0.2 K/mm3 (0-0.3); Eosinophils Percent Auto 1.2 % (0-4.4); Hemoglobin 8.7 g/dL (14.0-18.0); Immature Granulocyte Absolute 0.26 K/mm3 (0.00-0.031); Immature Granulocyte Percent A 1.8 % (0-0.5); Lymphocytes Absolute Auto 0.67 K/mm3 (0.9-3.2); Lymphocytes Percent Auto 4.8 % (18.3-44.2); Mean Corpuscular HGB Conc 31.1 g/dl (32-36); Mean Corpuscular Hemoglobin 24.1 pg (26-34); Mean Corpuscular Volume 77.6 fl (80-100); Mean Platelet Volume 9.1 fl (7.4-10.4); Monocytes Absolute Auto 0.7 K/mm3 (0.1-0.6); Monocytes Percent Auto 4.6 % (2.6-8.5); Neutrophils Absolute Auto 12.3 K/mm3 (1.3-6.7); Neutrophils Percent Auto 87.3 % (45.5-73.1); Platelet Count Result 220 k/mm3 (150-375); Red Blood Count 3.61 M/mm3 (4.6-6.20); Red Cell Distribution Width 18.3 % (11.5-14.5); White Blood Count 14.1 K/mm3 (4.5-10.0)
--- NOTE | 2024-03-27 12:00 | PM.IMPN ---
Progress Note: A&P Assessment and Plan (1) Anterior wall myocardial infarction: Code(s): I21.09 - ST elevation (STEMI) myocardial infarction involving other coronary artery of anterior wall Status: Acute Assessment and Plan: Patient with complaint of chest pain on admisison. Troponin to 4.[address] elevation consistent with anterior wall GA. Echo showing EF 30-35% with areas of HK/AK c/w Takotsubo CMP. Grade I diastolic dysfunction. 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 Cardiology following and plan is for medical management with Lasix, Cozaar and Toprol XL. Patient with pedal edema and mild pulm edema with effusions on imaging Lasix IV once. Check doppler LE (2) Acute hyponatremia: Code(s): E87.1 - Hypo-osmolality and hyponatremia Status: Acute Assessment and Plan: Etiology uncertain most likely secondary to GI cancer. [employer] consulted and appreciate their recommendation Consider related to edema/fluid overload Contienu NaCl tabs (3) Rectal mass: Code(s): K62.89 - Other specified diseases of anus and rectum Status: Acute Assessment and Plan: Patient with rectal bleeding and found to have rectal mass. CTA chest/Abd/Pelvis also showing lung nodules/masses, diffuse lymphadenopathy. Concern for metastatic colon cancer. CEA 13. GI consulted and apprecaite their recommendations LN bx performed 03/25 but sample lost so bx repeated 03/26 and results pending. Oncology on board. (4) Acute GI bleeding: Code(s): K92.2 - Gastrointestinal hemorrhage, unspecified Status: Acute Assessment and Plan: Most likely secondary to colon mass hgb low on admission and dropped to 6.9. Patient received 1U PRBC on 03/24. hgb better but this will contineu to drift down. Follow and transfuse as needed. (5) Acute anemia: Code(s): D64.9 - Anemia, unspecified Status: Acute Assessment and Plan: As above Add iron (6) Type 2 diabetes mellitus with diabetic polyneuropathy: Code(s): E11.42 - Type 2 diabetes mellitus with diabetic polyneuropathy Status: Acute Assessment and Plan: A1c 7.9. The patient's blood glucose was reviewed on 03/27 Glucose remains elevated at times. Continue AccuCheks covering with sliding scale. Hypoglycemia protocol available as needed. Add lantus at night (7) COVID: Code(s): U07.1 - COVID-19 Status: Acute Assessment and Plan: Patient tested positive for COVID here. His was positive a few months ago No O2 requirement and imagaing reviewed Suspect he is positive related to when his was positive a few months ago and not an active problem Follow (8) DVT (deep venous thrombosis): Qualifiers: Affected thrombotic vein of extremity: brachial Chronicity: acute DVT location: upper extremity Laterality: right Qualified Code(s): I82.621 - Acute embolism and thrombosis of deep veins of right upper extremity Code(s): I82.409 - Acute embolism and thrombosis of unspecified deep veins of unspecified lower extremity Status: Inactive Assessment and Plan: Patient has RUE edema and doppler noted extensive DVT to the RUE in December He was started on Eliquis and edema better. He has had recurrent edema since being off Eliquis here. Now with bilateral leg edema Check LE doppler since can place filter if positive. Plan DVT prophylaxis - SCDs Code status - full Subjective Date/time seen: 03/27/24 12:00 Interval history: 73yo male with hx of tobacco use here for weakness. Assuming care. Chart reviewed. He feels weak. RUE edema is better today. Still having blood in his stool. No CP or SOB. Cough is better. Walking in the room. Exam Narrative: AF 97.0 105/46 84 18 93% ra Gen - NARD Chest - distant BS. CV - RRR S1/S2. Tele showing no signifincat dysrhythmias Abd - Soft, NT/ND, Positive BS, +liver
[2024-03-27 12:16] LABS: Glucose Point of Care 188 mg/dl (65-105)
--- NOTE | 2024-03-27 12:44 | P.PNNP_ITS ---
Progress Note: A&P Assessment and Plan (1) Hyponatremia: Code(s): E87.1 - Hypo-osmolality and hyponatremia Status: Acute Assessment and Plan: * slow improvement noted * present since last October 2023 * however, worse on admission with a reading of 120mmol/L * multiple risk factors: * metastatic malignancy * COVID-19 infection * cardiomyopathy (as noted by recent Echo) * prerenal factors * emphysema (as noted by chest CT) * pleural effusions (noted on CT of chest) * already initiated on salt tabs and fluid restriction * getting runs of 3% saline as well * follow trend of repeat sodium (2) Non-STEMI (non-ST elevated myocardial infarction): Code(s): I21.4 - Non-ST elevation (NSTEMI) myocardial infarction Status: Inactive Assessment and Plan: * Cardiology following * noted by EKG findings * chest pain free currently * not a candidate for cardiac catheterization at that this time given significant other concurrent medical issues * Echo noted: * LVEF 30-35% * regional wall motion abnormalities that would be consistent with an LAD infarction or Takotsubo cardiomyopathy * continue medical therapy (3) Acute GI bleeding: Code(s): K92.2 - Gastrointestinal hemorrhage, unspecified Status: Acute Assessment and Plan: * as noted by low H/H and + FOBT * suspect secondary rectal mass/colon cancer * PRBC transfusion per protocol * hold blood thinners/anticoagulation * follow trend of H/H (4) Metastatic cancer: Qualifiers: Area of secondary neoplastic involvement: unspecified site Qualified Code(s): C79.9 - Secondary malignant neoplasm of unspecified site Code(s): C79.9 - Secondary malignant neoplasm of unspecified site Status: Acute Assessment and Plan: * as evidence by imaging on admission * admission symptoms noted as well -- weight loss, worsening anemia, diarrhea and dimisnished appetite * suspect primary is rectal mass (suspected colon cancer) * s/pr lymph node biopsy for definitive diagnosis (5) Rectal mass: Code(s): K62.89 - Other specified diseases of anus and rectum Status: Acute Assessment and Plan: * as noted by admission imaging * presumed colon cancer * not a candidate for colonoscopy given recent NSTEMI as well as COVID positivity * GI following (6) COVID-19: Code(s): U07.1 - COVID-19 Status: Acute Assessment and Plan: * on isolation * no evidence of hypoxia or respiratory distress * no need for remdesivir or steroids at this time Will continue to follow. Subjective Date/time seen: 03/27/24 12:44 Interval history: Follow-up for acute on chronic hyponatremia. Sodium appears to be slowly improving with current interventions/therapy to date (salt tablets + lasix + fluid restriction); has significant edema (from cardiomyopathy versus previous use of 3% saline?) at this time; no other issues/evens overnight or earlier this AM. Exam Narrative: General: elderly and frail male in NAD Heart: normal S1 and S2; no rub Lungs: clear anteriorly Abdomen: soft, nontender, nondistended, positive bowel sounds Extremities: no cyanosis or clubbing; 1 - 2+ edema Skin: no nodules Objective Data Vital Signs Vital Signs: Vital Signs Temp Pulse Resp BP Pulse Ox O2 Del Method 03/27/24 1
--- NOTE | 2024-03-27 12:44 | PM.PNNEP ---
Progress Note: A&P Assessment and Plan (1) Hyponatremia: Code(s): E87.1 - Hypo-osmolality and hyponatremia Status: Acute Assessment and Plan: slow improvement noted present since last October 2023 however, worse on admission with a reading of 120mmol/L multiple risk factors: metastatic malignancy COVID-19 infection cardiomyopathy (as noted by recent Echo) prerenal factors emphysema (as noted by chest CT) pleural effusions (noted on CT of chest) already initiated on salt tabs and fluid restriction getting runs of 3% saline as well follow trend of repeat sodium (2) Non-STEMI (non-ST elevated myocardial infarction): Code(s): I21.4 - Non-ST elevation (NSTEMI) myocardial infarction Status: Inactive Assessment and Plan: Cardiology following noted by EKG findings chest pain free currently not a candidate for cardiac catheterization at that this time given significant other concurrent medical issues Echo noted: LVEF 30-35% regional wall motion abnormalities that would be consistent with an LAD infarction or Takotsubo cardiomyopathy continue medical therapy (3) Acute GI bleeding: Code(s): K92.2 - Gastrointestinal hemorrhage, unspecified Status: Acute Assessment and Plan: as noted by low H/H and + FOBT suspect secondary rectal mass/colon cancer PRBC transfusion per protocol hold blood thinners/anticoagulation follow trend of H/H (4) Metastatic cancer: Qualifiers: Area of secondary neoplastic involvement: unspecified site Qualified Code(s): C79.9 - Secondary malignant neoplasm of unspecified site Code(s): C79.9 - Secondary malignant neoplasm of unspecified site Status: Acute Assessment and Plan: as evidence by imaging on admission admission symptoms noted as well -- weight loss, worsening anemia, diarrhea and dimisnished appetite suspect primary is rectal mass (suspected colon cancer) s/pr lymph node biopsy for definitive diagnosis (5) Rectal mass: Code(s): K62.89 - Other specified diseases of anus and rectum Status: Acute Assessment and Plan: as noted by admission imaging presumed colon cancer not a candidate for colonoscopy given recent NSTEMI as well as COVID positivity GI following (6) COVID-19: Code(s): U07.1 - COVID-19 Status: Acute Assessment and Plan: on isolation no evidence of hypoxia or respiratory distress no need for remdesivir or steroids at this time Will continue to follow. Subjective Date/time seen: 03/27/24 12:44 Interval history: Follow-up for acute on chronic hyponatremia. Sodium appears to be slowly improving with current interventions/therapy to date (salt tablets + lasix + fluid restriction); has significant edema (from cardiomyopathy versus previous use of 3% saline?) at this time; no other issues/evens overnight or earlier this AM. Exam Narrative: General: elderly and frail male in NAD Heart: normal S1 and S2; no rub Lungs: clear anteriorly Abdomen: soft, nontender, nondistended, positive bowel sounds Extremities: no cyanosis or clubbing; 1 - 2+ edema Skin: no nodules Objective Data Vital Signs Vital Signs: Vital Signs Temp Pulse Resp BP Pulse Ox O2 Del Method 03/27/24 12:00 81 03/27/24 08:00 Room Air 03/27/24 08:00 85 03/27/24 09:45 84 03/27/24 07:37 97.0 F L 80 18 105/46 L 93 03/27/24 04:00 83 03/27/24 00:00 78 03/26/24 20:00 95 03/26/24 23:49 97.8 F 88 20 117/43 L 96 Intake/Output Intake/Output: Intake & Output 03/24/24 03/25/24 03/26/24 03/27/24 23:59 23:59 23:59 23:59 Intake Total 3085 1405 810 535 Output Total 800 1150 1150 200 Balance 2285 255 -340 335 Meds/Results Medications: Active Medications Generic Name Dose Route Start Last Admin Trade Name Freq PRN Reason Stop Dose Admin Acetam
--- NOTE | 2024-03-27 13:47 | PC.NURSE ---
This patient, Juan Luis Aguilar, was received from [facility] on 03/27/24 at 1335. Patient/family oriented to unit policies and routines
[2024-03-27] MEDS: IRON SUCROSE COMPLEX 100 MG in SODIUM CHLORIDE 0.9% IV 50 ML 220 MG IVPB (14:40)
[2024-03-27] MEDS: ACETAMINOPHEN 325 MG TABLET 650 MG PO (17:12)
[2024-03-27 17:37] LABS: Sodium 120 mmol/L (137-145)
[2024-03-27 17:39] LABS: Glucose Point of Care 226 mg/dl (65-105)
[2024-03-27] MEDS: guaiFENesin/DEXTROMETHORPHAN 10 ML UDC PO ×2 (18:14→23:16)
[2024-03-27] MEDS: INSULIN ASPART (*BKC) 100 UNITS/ML SUB-Q ×2 (18:14→20:18)
[2024-03-27] MEDS: INSULIN GLARGINE (*BKC) 100 UNITS/ML 8 UNITS SUB-Q (20:19)
[2024-03-27 20:26] LABS: Glucose Point of Care 249 mg/dl (65-105)
[2024-03-28] VITALS (10 sets, daily range): BP systolic 112–119; BP diastolic 40–50; PULSE 74–94; RESP 16–20; TEMP 36.4–36.9; O2SAT 93–94
[2024-03-28 05:54] LABS: Basophils Percent Auto 0.4 % (0.2-1.2); Eosinophils Absolute Auto 0.2 K/mm3 (0-0.3); Hematocrit 25.2 % (42.0-52.0); Hemoglobin 7.8 g/dL (14.0-18.0); Immature Granulocyte Absolute 0.18 K/mm3 (0.00-0.031); Immature Granulocyte Percent A 1.6 % (0-0.5); Lymphocytes Absolute Auto 0.74 K/mm3 (0.9-3.2); Lymphocytes Percent Auto 6.6 % (18.3-44.2); Mean Corpuscular Hemoglobin 24.4 pg (26-34); Mean Corpuscular Volume 78.8 fl (80-100); Mean Platelet Volume 9.9 fl (7.4-10.4); Monocytes Absolute Auto 0.8 K/mm3 (0.1-0.6); Monocytes Percent Auto 6.8 % (2.6-8.5); Neutrophils Absolute Auto 9.2 K/mm3 (1.3-6.7); Neutrophils Percent Auto 82.6 % (45.5-73.1); Platelet Count Result 199 k/mm3 (150-375); Red Cell Distribution Width 18.7 % (11.5-14.5); White Blood Count 11.1 K/mm3 (4.5-10.0)
[2024-03-28 06:13] LABS: Alanine Aminotransferase 11 U/L (6-50); Albumin Level 2.1 g/dL (3.5-5.1); Alkaline Phosphatase 86 U/L (38-126); Anion Gap 6 mmol/L (4-12); Aspartate Amino Transferase 28 U/L (17-59); Bilirubin,Total 0.1 mg/dL (0.2-1.3); Blood Urea Nitrogen 15 mg/dL (9-20); Calcium 7.7 mg/dL (8.4-10.2); Carbon Dioxide 23 mmol/L (22-30); Chloride 92 mmol/L (98-107); Estimated CRCL calculation 68 ml/min; Estimated Glomerular Filt Rate > 60; Glucose 138 mg/dL (65-110); Magnesium 1.6 mg/dL (1.6-2.3); Potassium 3.9 mmol/L (3.4-5.0); Sodium 121 mmol/L (137-145)
[2024-03-28] MEDS: SODIUM CHLORIDE 500 MG TABLET 1500 MG PO (08:55)
[2024-03-28] MEDS: LOSARTAN POTASSIUM 12.5 MG TABLET PO (08:55)
[2024-03-28] MEDS: ATORVASTATIN 20 MG TABLET PO (08:55)
[2024-03-28] MEDS: METOPROLOL SUCCINATE EXT REL 25 MG TABCR PO (08:55)
[2024-03-28] MEDS: ACETAMINOPHEN 325 MG TABLET 650 MG PO ×2 (08:55→17:40)
[2024-03-28] MEDS: FUROSEMIDE 20 MG TABLET PO ×2 (08:55→17:40)
[2024-03-28] MEDS: IRON SUCROSE COMPLEX 100 MG in SODIUM CHLORIDE 0.9% IV 50 ML 220 MG IVPB (08:56)
[2024-03-28 09:15] LABS: Glucose Point of Care 132 mg/dl (65-105)
--- NOTE | 2024-03-28 12:46 | PM.PNNEP ---
Progress Note: A&P Assessment and Plan (1) Hyponatremia: Code(s): E87.1 - Hypo-osmolality and hyponatremia Status: Acute Assessment and Plan: slow improvement noted present since last October 2023 however, worse on admission with a reading of 120mmol/L multiple risk factors: metastatic malignancy COVID-19 infection cardiomyopathy (as noted by recent Echo) prerenal factors emphysema (as noted by chest CT) pleural effusions (noted on CT of chest) already initiated on salt tabs and fluid restriction getting runs of 3% saline as well follow trend of repeat sodium (2) Non-STEMI (non-ST elevated myocardial infarction): Code(s): I21.4 - Non-ST elevation (NSTEMI) myocardial infarction Status: Inactive Assessment and Plan: Cardiology following noted by EKG findings chest pain free currently not a candidate for cardiac catheterization at that this time given significant other concurrent medical issues Echo noted: LVEF 30-35% regional wall motion abnormalities that would be consistent with an LAD infarction or Takotsubo cardiomyopathy continue medical therapy (3) Acute GI bleeding: Code(s): K92.2 - Gastrointestinal hemorrhage, unspecified Status: Acute Assessment and Plan: as noted by low H/H and + FOBT suspect secondary rectal mass/colon cancer PRBC transfusion per protocol hold blood thinners/anticoagulation follow trend of H/H (4) Metastatic cancer: Qualifiers: Area of secondary neoplastic involvement: unspecified site Qualified Code(s): C79.9 - Secondary malignant neoplasm of unspecified site Code(s): C79.9 - Secondary malignant neoplasm of unspecified site Status: Acute Assessment and Plan: as evidence by imaging on admission admission symptoms noted as well -- weight loss, worsening anemia, diarrhea and dimisnished appetite suspect primary is rectal mass (suspected colon cancer) s/pr lymph node biopsy for definitive diagnosis (5) Rectal mass: Code(s): K62.89 - Other specified diseases of anus and rectum Status: Acute Assessment and Plan: as noted by admission imaging presumed colon cancer not a candidate for colonoscopy given recent NSTEMI as well as COVID positivity GI following (6) COVID-19: Code(s): U07.1 - COVID-19 Status: Acute Assessment and Plan: on isolation no evidence of hypoxia or respiratory distress no need for remdesivir or steroids at this time Will continue to follow. Subjective Date/time seen: 03/28/24 12:46 Interval history: Follow-up for acute on chronic hyponatremia. Sodium continues to improve albeit slowly with current interventions/therapy; states that he feels reasonably well at the time of my visit; no apparent distress noted; no other acute complaints/concerns voiced when seen. Exam Narrative: General: elderly and frail male in NAD Heart: normal S1 and S2; no rub Lungs: clear anteriorly Abdomen: soft, nontender, nondistended, positive bowel sounds Extremities: no cyanosis or clubbing; 1 - 2+ edema Skin: no rash Objective Data Vital Signs Vital Signs: Vital Signs Temp Pulse Resp BP Pulse Ox O2 Del Method 03/28/24 12:00 76 03/28/24 08:00 78 03/28/24 08:55 Room Air 03/28/24 08:55 82 03/28/24 06:00 97.5 F L 82 16 112/50 L 93 03/28/24 04:00 74 03/28/24 00:00 74 03/27/24 21:19 98.4 F 76 20 103/46 L 98 03/27/24 20:00 80 Intake/Output Intake/Output: Intake & Output 03/25/24 03/26/24 03/27/24 03/28/24 23:59 23:59 23:59 23:59 Intake Total 1405 810 535 960 Output Total 1150 1150 200 Balance 255 -340 335 960 Meds/Results Medications: Active Medications Generic Name Dose Route Start Last Admin Trade Name Freq PRN Reason Stop Dose Admin Acetaminophen 650 mg 03/22/24 07:29 03/28/24 08:55 Acetami
--- NOTE | 2024-03-28 12:46 | P.PNNP_ITS ---
Progress Note: A&P Assessment and Plan (1) Hyponatremia: Code(s): E87.1 - Hypo-osmolality and hyponatremia Status: Acute Assessment and Plan: * slow improvement noted * present since last October 2023 * however, worse on admission with a reading of 120mmol/L * multiple risk factors: * metastatic malignancy * COVID-19 infection * cardiomyopathy (as noted by recent Echo) * prerenal factors * emphysema (as noted by chest CT) * pleural effusions (noted on CT of chest) * already initiated on salt tabs and fluid restriction * getting runs of 3% saline as well * follow trend of repeat sodium (2) Non-STEMI (non-ST elevated myocardial infarction): Code(s): I21.4 - Non-ST elevation (NSTEMI) myocardial infarction Status: Inactive Assessment and Plan: * Cardiology following * noted by EKG findings * chest pain free currently * not a candidate for cardiac catheterization at that this time given significant other concurrent medical issues * Echo noted: * LVEF 30-35% * regional wall motion abnormalities that would be consistent with an LAD infarction or Takotsubo cardiomyopathy * continue medical therapy (3) Acute GI bleeding: Code(s): K92.2 - Gastrointestinal hemorrhage, unspecified Status: Acute Assessment and Plan: * as noted by low H/H and + FOBT * suspect secondary rectal mass/colon cancer * PRBC transfusion per protocol * hold blood thinners/anticoagulation * follow trend of H/H (4) Metastatic cancer: Qualifiers: Area of secondary neoplastic involvement: unspecified site Qualified Code(s): C79.9 - Secondary malignant neoplasm of unspecified site Code(s): C79.9 - Secondary malignant neoplasm of unspecified site Status: Acute Assessment and Plan: * as evidence by imaging on admission * admission symptoms noted as well -- weight loss, worsening anemia, diarrhea and dimisnished appetite * suspect primary is rectal mass (suspected colon cancer) * s/pr lymph node biopsy for definitive diagnosis (5) Rectal mass: Code(s): K62.89 - Other specified diseases of anus and rectum Status: Acute Assessment and Plan: * as noted by admission imaging * presumed colon cancer * not a candidate for colonoscopy given recent NSTEMI as well as COVID positivity * GI following (6) COVID-19: Code(s): U07.1 - COVID-19 Status: Acute Assessment and Plan: * on isolation * no evidence of hypoxia or respiratory distress * no need for remdesivir or steroids at this time Will continue to follow. Subjective Date/time seen: 03/28/24 12:46 Interval history: Follow-up for acute on chronic hyponatremia. Sodium continues to improve albeit slowly with current interventions/therapy; states that he feels reasonably well at the time of my visit; no apparent distress noted; no other acute complaints/concerns voiced when seen. Exam Narrative: General: elderly and frail male in NAD Heart: normal S1 and S2; no rub Lungs: clear anteriorly Abdomen: soft, nontender, nondistended, positive bowel sounds Extremities: no cyanosis or clubbing; 1 - 2+ edema Skin: no rash Objective Data Vital Signs Vital Signs: Vital Signs Temp Pulse Resp BP Pulse Ox O2 Del Method 03/28/24 12:00 76 03/28/24 08:00 78
[2024-03-28 13:04] LABS: Glucose Point of Care 190 mg/dl (65-105)
--- NOTE | 2024-03-28 16:20 | PM.IMPN ---
Progress Note: A&P Assessment and Plan (1) Anterior wall myocardial infarction: Code(s): I21.09 - ST elevation (STEMI) myocardial infarction involving other coronary artery of anterior wall Status: Acute Assessment and Plan: Patient with complaint of chest pain on admisison. Troponin to 4.[address] elevation consistent with anterior wall [place]. Echo showing EF 30-35% with areas of HK/AK c/w Takotsubo CMP. Grade I diastolic dysfunction. 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 Cardiology following and plan is for medical management with Lasix, Cozaar and Toprol XL. Patient with pedal edema and mild pulm edema with effusions on imaging LE doppler negative for DVT. Advance Lasix to improve fluid status. (2) Acute hyponatremia: Code(s): E87.1 - Hypo-osmolality and hyponatremia Status: Acute Assessment and Plan: Sodium 120 on admission and dropped to 114 Etiology uncertain most likely secondary to GI cancer. [employer] consulted and appreciate their recommendation Consider related to edema/fluid overload as well Na better at 121. Continue NaCl tabs and lasix (3) Rectal mass: Code(s): K62.89 - Other specified diseases of anus and rectum Status: Acute Assessment and Plan: Patient with rectal bleeding and found to have rectal mass. CTA chest/Abd/Pelvis also showing lung nodules/masses, diffuse lymphadenopathy. Concern for metastatic colon cancer. CEA 13. GI consulted and apprecaite their recommendations LN bx performed 03/25 but sample lost so bx repeated 03/26 and results pending. Oncology on board. (4) Acute GI bleeding: Code(s): K92.2 - Gastrointestinal hemorrhage, unspecified Status: Acute Assessment and Plan: Most likely secondary to colon mass Hgb low on admission and dropped to 6.9. Patient received 1U PRBC on 03/24. Hgb better but this will continue to drift down. Follow and transfuse as needed. (5) Acute anemia: Code(s): D64.9 - Anemia, unspecified Status: Acute Assessment and Plan: As above Continue iron (6) Type 2 diabetes mellitus with diabetic polyneuropathy: Code(s): E11.42 - Type 2 diabetes mellitus with diabetic polyneuropathy Status: Acute Assessment and Plan: A1c 7.9. The patient's blood glucose was reviewed on 03/28 Glucose remains elevated at times but better overall. Glucose was 132 this morning Continue AccuCheks covering with sliding scale. Hypoglycemia protocol available as needed. Continue lantus at night (7) COVID: Code(s): U07.1 - COVID-19 Status: Acute Assessment and Plan: Patient tested positive for COVID here. His was positive a few months ago No O2 requirement and imagaing reviewed Suspect he is positive related to when his was positive a few months ago and not an active problem Follow (8) DVT (deep venous thrombosis): Qualifiers: Affected thrombotic vein of extremity: brachial Chronicity: acute DVT location: upper extremity Laterality: right Qualified Code(s): I82.621 - Acute embolism and thrombosis of deep veins of right upper extremity Code(s): I82.409 - Acute embolism and thrombosis of unspecified deep veins of unspecified lower extremity Status: Inactive Assessment and Plan: Patient has RUE edema and doppler noted extensive DVT to the RUE in December He was started on Eliquis and edema better. He has had recurrent edema since being off Eliquis here. Now with bilateral leg edema but LE venous doppler negative for DVT No Elquis given the GI bleed. Plan DVT prophylaxis - SCDs Code status - full Subjective Date/time seen: 03/28/24 16:20 Interval history: 73yo male with hx of tobacco use here for weakness. Cough is better. Walking in the room and to the BR. Feels well overall. Exam Narrative: AF 97.7 114/40 77 20 93% ra Gen - NARD Chest
[2024-03-28 17:34] LABS: Glucose Point of Care 213 mg/dl (65-105)
[2024-03-28] MEDS: SODIUM CHLORIDE 1 GM TABLET PO (17:40)
[2024-03-28] MEDS: INSULIN ASPART (*BKC) 100 UNITS/ML SUB-Q ×2 (17:40→19:44)
[2024-03-28] MEDS: guaiFENesin/DEXTROMETHORPHAN 10 ML UDC PO (17:41)
[2024-03-28] MEDS: INSULIN GLARGINE (*BKC) 100 UNITS/ML 8 UNITS SUB-Q (19:44)
[2024-03-28 19:58] LABS: Glucose Point of Care 261 mg/dl (65-105)
[2024-03-29] VITALS: PULSE 77
[2024-03-29 04:00] VITALS: PULSE 82
[2024-03-29 05:49] LABS: Basophils Absolute Auto 0.1 K/mm3 (0.0-0.1); Basophils Percent Auto 0.4 % (0.2-1.2); Eosinophils Absolute Auto 0.2 K/mm3 (0-0.3); Eosinophils Percent Auto 1.6 % (0-4.4); Hematocrit 26.3 % (42.0-52.0); Hemoglobin 7.9 g/dL (14.0-18.0); Immature Granulocyte Absolute 0.22 K/mm3 (0.00-0.031); Lymphocytes Absolute Auto 0.76 K/mm3 (0.9-3.2); Lymphocytes Percent Auto 6.8 % (18.3-44.2); Mean Corpuscular Volume 79.9 fl (80-100); Mean Platelet Volume 9.1 fl (7.4-10.4); Monocytes Absolute Auto 0.7 K/mm3 (0.1-0.6); Monocytes Percent Auto 6.2 % (2.6-8.5); Neutrophils Absolute Auto 9.2 K/mm3 (1.3-6.7); Platelet Count Result 192 k/mm3 (150-375); Red Blood Count 3.29 M/mm3 (4.6-6.20); Red Cell Distribution Width 19.8 % (11.5-14.5); White Blood Count 11.1 K/mm3 (4.5-10.0)
[2024-03-29 06:00] VITALS: BP 114/50; PULSE 95; RESP 16; TEMP 36.9; O2SAT 94
[2024-03-29 06:03] LABS: Alanine Aminotransferase 12 U/L (6-50); Albumin Level 2.3 g/dL (3.5-5.1); Alkaline Phosphatase 84 U/L (38-126); Anion Gap 7 mmol/L (4-12); Aspartate Amino Transferase 27 U/L (17-59); Bilirubin,Total 0.1 mg/dL (0.2-1.3); Blood Urea Nitrogen 17 mg/dL (9-20); Calcium 7.7 mg/dL (8.4-10.2); Carbon Dioxide 23 mmol/L (22-30); Chloride 95 mmol/L (98-107); Estimated CRCL calculation 72 ml/min; Estimated Glomerular Filt Rate > 60; Glucose 132 mg/dL (65-110); Magnesium 1.6 mg/dL (1.6-2.3); Potassium 4.1 mmol/L (3.4-5.0); Sodium 125 mmol/L (137-145)
[2024-03-29 08:00] VITALS: PULSE 87
[2024-03-29 08:28] LABS: Glucose Point of Care 131 mg/dl (65-105)
[2024-03-29 09:34] VITALS: PULSE 95
[2024-03-29] MEDS: METOPROLOL SUCCINATE EXT REL 25 MG TABCR PO (09:34)
[2024-03-29] MEDS: IRON SUCROSE COMPLEX 100 MG in SODIUM CHLORIDE 0.9% IV 50 ML 220 MG IVPB (09:34)
[2024-03-29] MEDS: LOSARTAN POTASSIUM 12.5 MG TABLET PO (09:34)
[2024-03-29] MEDS: SODIUM CHLORIDE 1 GM TABLET PO ×2 (09:34→12:44)
[2024-03-29] MEDS: FUROSEMIDE 20 MG TABLET PO ×2 (09:34→12:44)
[2024-03-29] MEDS: guaiFENesin/DEXTROMETHORPHAN 10 ML UDC PO (09:35)
[2024-03-29] MEDS: ATORVASTATIN 20 MG TABLET PO (09:35)
--- NOTE | 2024-03-29 10:57 | PCNWS ---
Weekly nutritional screen. Patient is tolerating current diet with adequate intake. No weight loss reported. No nutritional needs at this time.
--- NOTE | 2024-03-29 11:47 | P.PNNP_ITS ---
Progress Note: A&P Assessment and Plan (1) Hyponatremia: Code(s): E87.1 - Hypo-osmolality and hyponatremia Status: Acute Assessment and Plan: * slow improvement noted * present since last October 2023 * however, worse on admission with a reading of 120mmol/L * multiple risk factors: * metastatic malignancy * COVID-19 infection * cardiomyopathy (as noted by recent Echo) * prerenal factors * emphysema (as noted by chest CT) * pleural effusions (noted on CT of chest) * already initiated on salt tabs, diuretics, and fluid restriction * s/p 3% saline previously * follow trend of repeat sodium (2) Non-STEMI (non-ST elevated myocardial infarction): Code(s): I21.4 - Non-ST elevation (NSTEMI) myocardial infarction Status: Inactive Assessment and Plan: * Cardiology following * noted by EKG findings * chest pain free currently * not a candidate for cardiac catheterization at that this time given significant other concurrent medical issues * Echo noted: * LVEF 30-35% * regional wall motion abnormalities that would be consistent with an LAD infarction or Takotsubo cardiomyopathy * continue medical therapy (3) Acute GI bleeding: Code(s): K92.2 - Gastrointestinal hemorrhage, unspecified Status: Acute Assessment and Plan: * as noted by low H/H and + FOBT * suspect secondary rectal mass/colon cancer * PRBC transfusion per protocol * hold blood thinners/anticoagulation * follow trend of H/H (4) Metastatic cancer: Qualifiers: Area of secondary neoplastic involvement: unspecified site Qualified Code(s): C79.9 - Secondary malignant neoplasm of unspecified site Code(s): C79.9 - Secondary malignant neoplasm of unspecified site Status: Acute Assessment and Plan: * as evidence by imaging on admission * admission symptoms noted as well -- weight loss, worsening anemia, diarrhea and dimisnished appetite * suspect primary is rectal mass (suspected colon cancer) * s/pr lymph node biopsy for definitive diagnosis (5) Rectal mass: Code(s): K62.89 - Other specified diseases of anus and rectum Status: Acute Assessment and Plan: * as noted by admission imaging * presumed colon cancer * not a candidate for colonoscopy given recent NSTEMI as well as COVID positivity * GI following (6) COVID-19: Code(s): U07.1 - COVID-19 Status: Acute Assessment and Plan: * on isolation * no evidence of hypoxia or respiratory distress * no need for remdesivir or steroids at this time Will continue to follow. Subjective Date/time seen: 03/29/24 11:47 Interval history: Follow-up for acute on chronic hyponatremia. No new issues or problems voiced at the time of my visit; sodium level continues to improve with current therapy/interventions; still feels weak but better in general; no issues/events overnight or earlier this morning. Exam Narrative: General: elderly and frail male in NAD Heart: normal S1 and S2; no rub Lungs: clear anteriorly Abdomen: soft, nontender, nondistended, positive bowel sounds Extremities: no cyanosis or clubbing; 1+ edema Skin: warm and dry Objective Data Vital Signs Vital Signs: Vital Signs Temp Pulse Resp BP Pulse Ox O2 Del Method 03/29/24 08:00 87 03/29/24 08:55 Room
--- NOTE | 2024-03-29 11:47 | PM.PNNEP ---
Progress Note: A&P Assessment and Plan (1) Hyponatremia: Code(s): E87.1 - Hypo-osmolality and hyponatremia Status: Acute Assessment and Plan: slow improvement noted present since last October 2023 however, worse on admission with a reading of 120mmol/L multiple risk factors: metastatic malignancy COVID-19 infection cardiomyopathy (as noted by recent Echo) prerenal factors emphysema (as noted by chest CT) pleural effusions (noted on CT of chest) already initiated on salt tabs, diuretics, and fluid restriction s/p 3% saline previously follow trend of repeat sodium (2) Non-STEMI (non-ST elevated myocardial infarction): Code(s): I21.4 - Non-ST elevation (NSTEMI) myocardial infarction Status: Inactive Assessment and Plan: Cardiology following noted by EKG findings chest pain free currently not a candidate for cardiac catheterization at that this time given significant other concurrent medical issues Echo noted: LVEF 30-35% regional wall motion abnormalities that would be consistent with an LAD infarction or Takotsubo cardiomyopathy continue medical therapy (3) Acute GI bleeding: Code(s): K92.2 - Gastrointestinal hemorrhage, unspecified Status: Acute Assessment and Plan: as noted by low H/H and + FOBT suspect secondary rectal mass/colon cancer PRBC transfusion per protocol hold blood thinners/anticoagulation follow trend of H/H (4) Metastatic cancer: Qualifiers: Area of secondary neoplastic involvement: unspecified site Qualified Code(s): C79.9 - Secondary malignant neoplasm of unspecified site Code(s): C79.9 - Secondary malignant neoplasm of unspecified site Status: Acute Assessment and Plan: as evidence by imaging on admission admission symptoms noted as well -- weight loss, worsening anemia, diarrhea and dimisnished appetite suspect primary is rectal mass (suspected colon cancer) s/pr lymph node biopsy for definitive diagnosis (5) Rectal mass: Code(s): K62.89 - Other specified diseases of anus and rectum Status: Acute Assessment and Plan: as noted by admission imaging presumed colon cancer not a candidate for colonoscopy given recent NSTEMI as well as COVID positivity GI following (6) COVID-19: Code(s): U07.1 - COVID-19 Status: Acute Assessment and Plan: on isolation no evidence of hypoxia or respiratory distress no need for remdesivir or steroids at this time Will continue to follow. Subjective Date/time seen: 03/29/24 11:47 Interval history: Follow-up for acute on chronic hyponatremia. No new issues or problems voiced at the time of my visit; sodium level continues to improve with current therapy/interventions; still feels weak but better in general; no issues/events overnight or earlier this morning. Exam Narrative: General: elderly and frail male in NAD Heart: normal S1 and S2; no rub Lungs: clear anteriorly Abdomen: soft, nontender, nondistended, positive bowel sounds Extremities: no cyanosis or clubbing; 1+ edema Skin: warm and dry Objective Data Vital Signs Vital Signs: Vital Signs Temp Pulse Resp BP Pulse Ox O2 Del Method 03/29/24 08:00 87 03/29/24 08:55 Room Air 03/29/24 09:34 95 03/29/24 06:00 98.5 F 95 16 114/50 L 94 03/29/24 04:00 82 03/29/24 00:00 77 03/28/24 21:51 98.4 F 94 16 119/43 L 94 03/28/24 20:00 78 03/28/24 16:00 77 03/28/24 14:00 97.7 F 81 20 114/40 L 93 Intake/Output Intake/Output: Intake & Output 03/26/24 03/27/24 03/28/24 03/29/24 23:59 23:59 23:59 23:59 Intake Total 129 401 0291 480 Output Total 1150 200 Balance -202 334 3110 480 Meds/Results Medications: Active Medications Generic Name Dose Route Start Last Admin Trade Name Freq PRN Reason Stop Dose Admin Acetaminophen 650
[2024-03-29 13:20] LABS: Glucose Point of Care 145 mg/dl (65-105)
[2024-03-29 14:00] VITALS: BP 110/48; PULSE 85; RESP 20; TEMP 36.7; O2SAT 95
--- NOTE | 2024-03-29 14:06 | PM.DS ---
DS: Admitting Diagnosis Discharge Date 03/29/24 Admitting Diagnosis Weakness and chest pain DS: Discharge Diagnosis Discharge Diagnosis (1) Anterior wall myocardial infarction: Code(s): I21.09 - ST elevation (STEMI) myocardial infarction involving other coronary artery of anterior wall Status: Acute (2) Acute hyponatremia: Code(s): E87.1 - Hypo-osmolality and hyponatremia Status: Acute (3) Rectal mass: Code(s): K62.89 - Other specified diseases of anus and rectum Status: Acute (4) Acute GI bleeding: Code(s): K92.2 - Gastrointestinal hemorrhage, unspecified Status: Acute (5) Acute anemia: Code(s): D64.9 - Anemia, unspecified Status: Acute (6) Type 2 diabetes mellitus with diabetic polyneuropathy: Code(s): E11.42 - Type 2 diabetes mellitus with diabetic polyneuropathy Status: Acute (7) COVID: Code(s): U07.1 - COVID-19 Status: Acute (8) DVT (deep venous thrombosis): Qualifiers: Affected thrombotic vein of extremity: brachial Chronicity: acute DVT location: upper extremity Laterality: right Qualified Code(s): I82.621 - Acute embolism and thrombosis of deep veins of right upper extremity Code(s): I82.409 - Acute embolism and thrombosis of unspecified deep veins of unspecified lower extremity Status: Inactive (9) 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 - Benign neoplasm of heart Status: Acute (10) CHF (congestive heart failure): Code(s): I50.9 - Heart failure, unspecified Status: Acute DS: Summary Hospital Course Reason for hospitalization: 73yo male with hx of tobacco use here for weakness. Please see H&P for details Hospital Course: Patient with complaint of chest pain on admission. Troponin to 4.5. EKG showing ST elevation consistent with anterior wall CT. Echo showing EF 30-35% with areas of HK/AK c/w Takotsubo CMP. Grade I diastolic dysfunction. 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 Cardiology consulted and followed. Plan is for medical management with Lasix, Cozaar and Toprol XL. Patient with pedal edema and mild pulm edema with effusions on imaging consistent with acute systolic and diastolic CHF. LE doppler negative for DVT. Sodium 120 on admission and dropped to 114. Etiology uncertain but most likely secondary to GI cancer. [employer] consulted and appreciate their recommendation. Consider related to edema/fluid overload as well. Treated with NaCl tablets and Lasix. Na better at 125. Patient with rectal bleeding and found to have rectal mass. CTA chest/Abd/Pelvis also showing lung nodules/masses, diffuse lymphadenopathy concerning for metastatic colon cancer. CEA 13. GI consulted and appreciate their recommendations. LN bx performed 03/25 but sample lost so bx repeated 03/26 and results pending. Oncology on board as well. Patient with acute GI bleeding likely secondary to colon mass. Hgb low on admission and dropped to 6.9. Patient received 1U PRBC on 03/24. He received iron. Hgb better. A1c 7.9. The patient's blood glucose was monitored with AccuCheks covering with sliding scale. Hypoglycemia protocol was available as needed. he was on lantus but will trial Amaryl at discharge. Patient tested positive for COVID here. His was positive a few months ago. No O2 requirement. Suspect he is positive related to when his was positive a few months ago and not an active problem. Patient has RUE edema and doppler noted extensive DVT to the RUE in December. He was started on Eliquis and edema better. But this made his rectal bleeding worse. Eliquis held here. He has had recurrent edema to the RUE since being off Eliquis here. Also with bilateral leg edema felt related to CHF. LE venous doppler negative for DVT. No plans to resume Elquis given the GI bleed. The pathology is still pending at discharge. Plan for him to follow up with Oncology. All questions answered. He overall did well and w
--- NOTE | 2024-04-01 11:40 | PC.NURSE ---
Dr. Wilkinson has viewed the pathology findings of supraclavicular lymph node. Findings faxed to Dr. Dangelo's office.
== END 2024-03-29 15:35 | disposition home or self-care (01) | DRG 280 ==
LOC: ANHED 07:35 → ANHIMU 08:00 → ANH3MED 03-27 13:30
PROVIDERS: Internal Medicine; Internal Medicine Hematology & Oncology; Internal Medicine Nephrology; Admitting Provider Family Medicine; Emergency Provider Emergency Medicine; PCP Family Medicine Adolescent Medicine; Visit Provider Internal Medicine
DX: I21.09 ST elevation (STEMI) myocardial infarction involving other coronary artery of anterior wall (principal); U07.1 COVID-19; E87.1 Hypo-osmolality and hyponatremia; K92.2 Gastrointestinal hemorrhage, unspecified; D64.9 Anemia, unspecified; K62.9 Disease of anus and rectum, unspecified; E11.42 Type 2 diabetes mellitus with diabetic polyneuropathy; I25.10 Atherosclerotic heart disease of native coronary artery without angina pectoris; R19.7 Diarrhea, unspecified; R63.4 Abnormal weight loss; Z89.421 Acquired absence of other right toe(s); Z87.891 Personal history of nicotine dependence
CPT/HCPCS: 36415; 36430; 38505; 71275; 74177; 76942; 80048; 80053; 81001; 82378; 82465; 82533; 82570; 82607; 82728; 82948; 83540; 83550; 83605; 83718; 83721; 83735; 83880; 84145; 84156; 84295; 84439; 84443; 84480; 84484; 84540; 85014; 85018; 85025; 85027; 85610; 85730; 86850; 86900; 86901; 86923; 87637; 88305; 88342; 93005; 93970; 96365; 99285; A9270; C8929; G0378; J1644; J1756; J1815; J7030; J7050; J7131; P9016; Q9957; Q9967

== ENCOUNTER 2024-04-10 08:13 | Inpatient (IN) | payer OTHER, SELFPAY ==
[2024-04-10] VITALS (21 sets, daily range): BP systolic 109–129; BP diastolic 40–58; PULSE 76–93; RESP 12–27; TEMP 36.1–36.7; O2SAT 92–98; BMI 21.7
--- NOTE | ~2024-04-10 | XR_ITS ---
EXAMINATION: XR chest 2V DATE: 04/10/2024 09:41 INDICATION: Shortness of breath. TECHNIQUE: Frontal and lateral views of the chest were obtained. COMPARISON: Chest single view 01/10/2009, chest CT 03/22/2024 FINDINGS: There is volume loss of right hemithorax. There is a mass in right upper lobe. There is a m ass in left lower lobe. There are airspace opacities in all right lung zones and in left upper lower lung zone. There is mild scarring at left lung apex. There are small pleural effusions, right worse t hoffman left. No pneumothorax. The heart size is normal. There is mediastinal and right hilar lymphadenop athy. There is mild chronic anterior wedging of multiple thoracic vertebral bodies. IMPRESSION: 1. Masses in right upper lobe and left lower lobe, consistent with pneumonia versus metastatic diseas e. 2. Diffuse lung disease, right worse than left, consistent with pneumonia versus pulmonary edema. 3. Small pleural effusions, right worse than left. 4. Right hilar and mediastinal lymphadenopathy, consistent with metastatic disease. Reviewed, dictated and finalized at location A. IMPRESSION: 1. Masses in right upper lobe and left lower lobe, consistent with pneumonia ve rsus metastatic disease. 2. Diffuse lung disease, right worse than left, consistent with pneumonia versu s pulmonary edema. 3. Small pleural effusions, right worse than left. 4. Right hilar and mediastinal lymphadenopathy, consistent with metastatic dise ase.
--- NOTE | ~2024-04-10 | XR_ITS ---
Portable chest x-ray Comparison: 04/10/2024 Clinical History: Shortness of breath Findings: Extensive right lung consolidation is again present. There is focal hazy airspace consolid ation the left infrahilar region. Cardiomediastinal silhouette is stable. Bones and soft tissues are unremarkable. Impression: Stable extensive right lung consolidation with additional focal airspace disease at the left infrahil ar region. Findings suggest bilateral pneumonia, right worse than left. Reviewed, dictated and finalized at location . Impression: Stable extensive right lung consolidation with additional focal airspace diseas e at the left infrahilar region. Findings suggest bilateral pneumonia, right wo rse than left.
--- NOTE | ~2024-04-10 | XR_ITS ---
XR abdomen gastric tube insert Ordering provider: Amanda Torres APRN History: . OG placement . Comparison: None. FINDINGS: BOWEL: Nasogastric tube with the tip in the fundus of the stomach. Nonobstructive bowel gas pattern. ORGANOMEGALY: None. SIGNIFICANT PATHOLOGIC CALCIFICATIONS: None. OTHER: No free air is seen under the diaphragm. IMPRESSION: NO ACUTE ABDOMINAL FINDINGS. Nasogastric tube with the tip in the fundus of the stomach. Reviewed, dictated and finalized at location A.
--- NOTE | ~2024-04-10 | XR_ITS ---
Portable chest x-ray Comparison: 04/11/2024 Clinical History: Respiratory failure Findings: Endotracheal tube and NG tube are in place. Extensive right lung consolidation is present. There is mild airspace disease at the left perihilar region/left lower lobe. Cardiomediastinal silh ouette is stable. Bones and soft tissues are unremarkable. Impression: Support tubes, as above. Extensive right lung consolidation, compatible with extensive right lung pneumonia. Additional hazy airspace disease left perihilar region and left lung base, compatible with additional pneumonia. Reviewed, dictated and finalized at location M. Impression: Support tubes, as above. Extensive right lung consolidation, compatible with extensive right lung pneumo emily. Additional hazy airspace disease left perihilar region and left lung base, comp atible with additional pneumonia.
--- NOTE | ~2024-04-10 | US_ITS ---
EXAMINATION: US venous doppler LE DATE: 04/10/2024 09:27 INDICATION: Lower limb swelling. TECHNIQUE: Grayscale ultrasound images without and with compression and Doppler ultrasound images of the bilateral lower extremity veins were obtained. COMPARISON: Ultrasound 03/27/2024, CT 03/22/2024 FINDINGS: The visualized portions of right common femoral vein, profunda (deep) femoral vein, femoral vein, pop liteal vein, peroneal veins, posterior tibial veins, and greater saphenous vein outflow are patent. T here is right inguinal lymphadenopathy. The visualized portions of left common femoral vein, profunda femoral vein, femoral vein, popliteal v ein, peroneal veins, posterior tibial veins, and greater saphenous vein outflow are patent. IMPRESSION: 1. No deep venous thrombosis. 2. Right inguinal lymphadenopathy, consistent with metastatic disease. Reviewed, dictated and finalized at location A.
--- NOTE | ~2024-04-10 | XR_ITS ---
XR chest ET placement Ordering provider: Amanda Torres APRN History: 73 years Male with . ETT placement . Comparison: April 11 2024. 1:56 AM FINDINGS: MEDIASTINUM: The cardiac silhouette is not enlarged. Endotracheal tube is seen with the tip above the yosvany by about 5 seen. Nasogastric tube is seen extending to the stomach. LUNGS: No effusions or pneumothorax. Opacification of the right hemithorax is seen suggestive of pneu monia. No change from previous examination seen. Plasty also seen in the left mid zone and left lower lobe medially. OTHER: No free air under the diaphragm. Degenerative spine. IMPRESSION: No significant change from previous examination. Status post placement of endotracheal and nasogastri c tube. Reviewed, dictated and finalized at location A. IMPRESSION: No significant change from previous examination. Status post placement of endot lalitha and nasogastric tube.
--- NOTE | 2024-04-10 08:28 | ECG_ITS ---
Test Date: 2024-04-10 08:32:13 Measurements Intervals [place] Rate: 81 P: 46 AK: 172 QRS: 53 QRSD: 111 T: 89 QT: 360 QTc: 419 Interpretive Statements SINUS RHYTHM LOW QRS VOLTAGE IN LIMB LEADS ANTERIOR WALL MYOCARDIAL INFARCTION WITH PERSISTENT ST ELEVATION BASELINE ARTIFACT- I, III, AVL ABNORMAL ECG Compared to ECG 03/24/2024 02:42:17 NO SIGNIFICANT CHANGE Electronically Signed On 04-10-2024 14:47:16 CDT by Corey Hassan D.O.
[2024-04-10 08:58] LABS: Basophils Percent Auto 0.4 % (0.2-1.2); Eosinophils Absolute Auto 0.1 K/mm3 (0-0.3); Eosinophils Percent Auto 0.8 % (0-4.4); Hematocrit 26.8 % (42.0-52.0); Hemoglobin 8.1 g/dL (14.0-18.0); Immature Granulocyte Absolute 0.11 K/mm3 (0.00-0.031); Lymphocytes Absolute Auto 0.61 K/mm3 (0.9-3.2); Lymphocytes Percent Auto 5.4 % (18.3-44.2); Mean Corpuscular HGB Conc 30.2 g/dl (32-36); Mean Corpuscular Hemoglobin 25.2 pg (26-34); Mean Corpuscular Volume 83.5 fl (80-100); Mean Platelet Volume 9.2 fl (7.4-10.4); Monocytes Absolute Auto 0.7 K/mm3 (0.1-0.6); Monocytes Percent Auto 6.6 % (2.6-8.5); Neutrophils Absolute Auto 9.6 K/mm3 (1.3-6.7); Neutrophils Percent Auto 85.8 % (45.5-73.1); Platelet Count Result 177 k/mm3 (150-375); Red Blood Count 3.21 M/mm3 (4.6-6.20); Red Cell Distribution Width 22.6 % (11.5-14.5); White Blood Count 11.2 K/mm3 (4.5-10.0)
[2024-04-10 09:09] LABS: Alanine Aminotransferase 17 U/L (6-50); Albumin Level 2.6 g/dL (3.5-5.1); Alkaline Phosphatase 78 U/L (38-126); Anion Gap 10 mmol/L (4-12); Aspartate Amino Transferase 39 U/L (17-59); Bilirubin,Total 0.2 mg/dL (0.2-1.3); Blood Urea Nitrogen 32 mg/dL (9-20); Calcium 8.6 mg/dL (8.4-10.2); Carbon Dioxide 24 mmol/L (22-30); Chloride 92 mmol/L (98-107); Estimated CRCL calculation 64 ml/min; Estimated Glomerular Filt Rate > 60; Glucose 110 mg/dL (65-110); Hypochromasia 1+; INR 1.1; Platelet Estimate Adequate (Adequate); Potassium 4.5 mmol/L (3.4-5.0); Prothrombin Time 15.1 Seconds (11.1-14.7); Schistocytes Rare; Sodium 126 mmol/L (137-145)
[2024-04-10 09:10] LABS: Anisocytosis 1+; Partial Thromboplastin Time 30.5 Seconds (22.3-36.8)
[2024-04-10 09:29] LABS: NT Pro B Type Natriuretic Pept 14700 pg/mL (19.9-100)
[2024-04-10] MEDS: FUROSEMIDE INJ 40 MG/4 ML VIAL IV PUSH ×2 (10:16→16:39)
--- NOTE | 2024-04-10 10:48 | ED.SOB ---
HPI - SOB/Dyspnea General Chief Complaint: Shortness of Breath/Dyspnea Stated Complaint: SOB Time Seen by Provider: 04/10/24 08:17 History of Present Illness HPI Narrative: Patient is a 73-year-old male who presents ER with shortness of breath no new lower extremity edema. Patient has new diagnosis rectal cancer with widespread metastases to lungs and lymph nodes. He has not yet seen Oncology and is supposed to see Dr. Dangelo this week. While admitted to the hospital 2 weeks ago patient sustained an KS. Is managed conservatively given his significant illness including anemia. His echocardiogram showed an EF of 30-35%. Patient has been compliant with home medication including Lasix. Related Data Home Medications Medication Instructions Recorded Confirmed atorvastatin 20 mg tablet 20 mg PO 1200 04/10/24 04/10/24 furosemide 20 mg tablet 20 mg PO TIDWM 04/10/24 04/10/24 glimepiride 1 mg tablet 1 mg PO 1200 04/10/24 04/10/24 losartan 25 mg tablet 12.5 mg PO 1200 04/10/24 04/10/24 Allergies Allergy/AdvReac Type Severity Reaction Status Date / Time No Known Allergies Allergy Verified 04/10/24 08:32 Review of Systems Review of Systems: All systems reviewed & are unremarkable except as noted in HPI and below Constitutional: Constitutional: Denies chills, Reports fatigue and Denies fever(s) ENT: Reports system reviewed and no additional complaints, except as documented Cardiovascular: Cardiovascular: Reports no additional cardiovascular complaints Respiratory: Respiratory: Denies cough, Reports dyspnea and Denies wheezing Comments: Orthopnea Gastrointestinal: Gastrointestinal: Reports no additional gastrointestinal complaints Integumentary/Breasts: Skin/Breast: Reports system reviewed and no additional complaints, except as docu PMFSH Past Medical History Medical History (Updated 04/10/24 @ 19:13 by Spencer Ruvalcaba MD) CHF (congestive heart failure) COVID-19 DVT of axillary vein, acute right Emphysema lung (02/2024) Moderate on CT 03/23 Essential (primary) hypertension Metastatic disease Non-STEMI (non-ST elevated myocardial infarction) Normocytic anemia Type 2 diabetes mellitus with diabetic polyneuropathy Surgical History Surgical History History of amputation of right great toe (2012) Family History Family History Father Hypertension Lung cancer Mother Diabetes mellitus Social History Social History Smoking packs per day: 2 Smoking cigarettes per day: 40.0 Years smoked: 35 Smoking pack-years: 70.00 Smoking status: Former smoker Tobacco type: cigarettes Additional smoking assessment comments: quit in 2008 Alcohol intake: never Substance use: never Substance use type: does not use Do You Feel Safe in your Home?: Yes Lack of Transportation: No Lack of Food: Never True Current Housing: I Have Housing Concerned About Future Housing: No Difficulty Paying Gas/Electric Bills: No Difficulty Paying for Meds: No Currently Unemployed: No Education: High School Diploma/GED Difficulty w/ Childcare or Family Care: No Living arrangements: with family Spiritual care concerns: No Exam Narrative: GENERAL: Chronically ill-appearing, well-nourished, and in no acute distress. HEAD: Normocephalic, atraumatic. ENT: Mucous membranes moist. NECK: Supple. CHEST: Clear to auscultation. No respiratory distress. HEART: Regular rate and rhythm. Normal peripheral pulses. ABDOMEN: Soft, nontender, nondistended. EXTREMITIES: Normal range of motion. 3+ edema. SKIN: Warm, dry, no rash. NEURO: Alert and oriented x3. PSYCH: Normal mood and affect. Course Course Emergency Course: 1048: Both Dr. Dangelo (onc) and Dr. Vu (cards) have been consulted and will see the patient hospital. Accepted by [facility]
--- NOTE | 2024-04-10 12:18 | ADMGEN ---
This patient, Juan Luis Aguilar, was admitted to IMU Room 212-01. Patient/family oriented to hospital policies and general routines including ID bracelet, bed and alarms, visiting hours, pain management, procedures, bathroom and other care routines, personal items, smoking policy, room service/diet, and visiting hours. Information on how to activate the Rapid Response Team has been discussed. Patient/Family are encouraged to report perceived risks to care and to ask questions if they do not understand what they are told or what they should do.
--- NOTE | 2024-04-10 14:00 | PM.CNCAR ---
Assessment and Plan Assessment and plan (1) Acute on chronic heart failure with reduced ejection fraction (HFrEF, <= 40%): Code(s): I50.23 - Acute on chronic systolic (congestive) heart failure Status: Acute Assessment and Plan: Continue IV Lasix at 40mg BID. Please monitor strict I/Os. Continue home Losartan and Toprol. Will uptitrate heart failure GDMT as tolerated. His significant anemia and hypoalbuminemia are also likely contributing to some of his volume overload state. (2) Anterior wall myocardial infarction: Code(s): I21.09 - ST elevation (STEMI) myocardial infarction involving other coronary artery of anterior wall Status: Acute Assessment and Plan: Found to have a recent anterior TN last admission. Has had persistent ST elevations during last admission. No chest pain. Not a candidate for cardiac catheterization given significant anemia, prohibiting anticoagulant / antiplatelet therapy. Also appears to likely have an overall poor prognosis given metastatic cancer. 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 Given that it is non-obstructing, do not recommend further workup at this time. Given his metastatic cancer, cannot rule out that this mass is malignant. (4) Metastatic cancer: Code(s): C79.9 - Secondary malignant neoplasm of unspecified site Status: Acute Assessment and Plan: Underwent a right supraclavicular lymph node biopsy 03/27. 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 Oncology has been consulted. (5) Anemia: Code(s): D64.9 - Anemia, unspecified Status: Acute Assessment and Plan: Management as per primary team. Oncology/Hematology consulted as well. (6) Essential (primary) hypertension: Code(s): I10 - Essential (primary) hypertension Status: Acute Assessment and Plan: Stable. Continue Lasix, Losartan, Metoprolol. (7) Type 2 diabetes mellitus with diabetic polyneuropathy: Code(s): E11.42 - Type 2 diabetes mellitus with diabetic polyneuropathy Status: Acute Assessment and Plan: Management as per primary team. History of Present Illness History of Present Illness Consult date/time: 04/10/24 14:00 Requesting physician: Spencer Ruvalcaba MD Consult reason: congestive heart failure Reason For Visit: chf exacerbation,metastatic rectal cancer Narrative: This is a 73 year old male with myocardial infarction, heart failure with reduced LVEF of 30-35%, non-obstructing right atrial myxoma, metastatic cancer, anemia. Patient was recently admitted to [facility] for recent TN, diagnosed with cardiomyopathy. EKGs that admission showed sinus rhythm, Q-waves in the anterior leads with persistent ST elevation. Also found to be severely anemic. CT scan showed clear evidence of metastatic carcinoma of the colon with a large rectal mass with significant abdominal and thoracic metastatic disease. He was deemed to not be a candidate for cardiac catheterization given significant anemia requiring blood transfusions, prohibiting anticoagulant / antiplatelet therapy, and overall poor prognosis from new diagnosis of metastatic disease. Oncology was consulted last admission, and he underwent a right supraclavicular lymph node biopsy. 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 We managed his TN and cardiomyopathy medically. Patient returns to [place] ER today for progressive lower extremity edema and shortness of breath for the past few days. Has also been having a cough. No chest pain. Workup shows: Hgb 8.1 NT pro BNP of 14,700 Troponin of 1.860 Venous Duplex negative for
[2024-04-10 15:48] LABS: Glucose Point of Care 142 mg/dl (65-105)
--- NOTE | 2024-04-10 15:48 | PM.IMHP ---
H&P: HPI History of Present Illness Date/Time: 04/10/24 15:48 Chief Complaint: Shortness of Breath Narrative: 73 y/o M presents here with shortness of breath with PMH of DVT (RUE December of 2023, on anticoagulation), metastatic cancer, CHF, emphysema, hypertension, NSTEMI, normocytic anemia, and type 2 diabetes. The patient presents here from home via EMS for further evaluation of intermittent shortness of breath and right arm/right leg weeping/swelling. He reports onset of shortness of breath a few days after he was discharged home from most recent admission. Per EMS, upon their arrival patient was in the low 90s on room air. Patient was placed on 2 L NC for comfort during transport. Patient able to maintain sat above 92% on room air after arrival. Per chart review, patient was admitted on 03/22/2024 - 03/29/2024 for chest pain. Patient was found to have a significantly elevated troponin at 4.5 and EKG showed findings consistent with anterior wall AL. echo done during this admission showed an EF of 30-35%. Patient was medically managed with Lasix, Cozaar, and Toprol XL. Also found to be hyponatremic, treated with sodium tablets and Lasix and likely related to edema/fluid overload. 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 Patient also tested positive for COVID on 03/22/24, felt to be residual (patient's had tested positive a few months prior). Initial VS at presentation: 97.5? F, HR 85, RR 24, 125/58, and 95% on RA. ED workup showed: WBC 11.2, hemoglobin 8.1 (previously 7.9 on 03/29/2024), sodium 126, creatinine 0.9 and GFR >60, initial troponin 1.860, BNP 78700, and albumin 2.6. Review of Systems Review of Systems: All systems reviewed & are unremarkable except as noted in HPI and below PMFSH Past Medical History Medical History CHF (congestive heart failure) COVID-19 DVT of axillary vein, acute right Emphysema lung (02/2024) Moderate on CT 03/23 Essential (primary) hypertension Metastatic disease Non-STEMI (non-ST elevated myocardial infarction) Normocytic anemia Type 2 diabetes mellitus with diabetic polyneuropathy Surgical History Surgical History History of amputation of right great toe (2012) Family History Family History Father Hypertension Lung cancer Mother Diabetes mellitus Social History Social History Smoking packs per day: 2 Smoking cigarettes per day: 40.0 Years smoked: 35 Smoking pack-years: 70.00 Smoking status: Former smoker Tobacco type: cigarettes Additional smoking assessment comments: quit in 2008 Alcohol intake: never Substance use: never Substance use type: does not use Do You Feel Safe in your Home?: Yes Lack of Transportation: No Lack of Food: Never True Current Housing: I Have Housing Concerned About Future Housing: No Difficulty Paying Gas/Electric Bills: No Difficulty Paying for Meds: No Currently Unemployed: No Education: High School Diploma/GED Difficulty w/ Childcare or Family Care: No Living arrangements: with family Spiritual care concerns: No Meds Home Medications and Allergies Home Medications Medication Instructions Recorded Confirmed Type ferrous sulfate 325 mg (65 mg 325 mg PO DAILY #30 tabs 03/29/24 04/10/24 Rx iron) tablet metoprolol succinate 25 mg 25 mg PO QAM #30 tabs 03/29/24 04/10/24 Rx tablet,extended release 24 hr (Toprol XL) sodium chloride 1,000 mg soluble 1,000 mg PO TID #90 tabs 03/29/24 04/10/24 Rx tablet atorvastatin 20 mg tablet 20 mg PO 1200 04/10/24 04/10/24 History furosemide 20 mg tablet 20 mg PO TIDWM 04/10/24 0
[2024-04-10] MEDS: GLIMEPIRIDE 1 MG TABLET PO (16:39)
[2024-04-10] MEDS: LOSARTAN POTASSIUM 12.5 MG TABLET PO (16:39)
[2024-04-10] MEDS: ATORVASTATIN 20 MG TABLET PO (16:39)
[2024-04-10] MEDS: SODIUM CHLORIDE 1 GM TABLET PO (16:39)
[2024-04-10] MEDS: ALBUMIN HUMAN 25% 25 GM/100 ML 100 ML IVPB (16:41)
--- NOTE | 2024-04-10 18:29 | PDONCCN ---
[facility] - Date of Consult Date/Time: 04/10/24 18:29 Requesting Physician: Noam Junior MD Primary Care Provider: Miguel Medina MD - Consult Narrative Reason for consult: Metastatic anal cancer Narrative: Juan Luis Aguilar is a 73 year old male with history of hypertension and recently diagnosed anal cancer status post right supraclavicular lymph node biopsy. Patient had CT scan chest abdomen and pelvis done that showed rectal mass with lung nodules and lymphadenopathy in chest abdomen and pelvis consistent with metastatic disease. Patient was now brought in to the hospital with increasing shortness of breath and lower extremity swelling and edema. Hemoglobin was found to be 8.1. [place] [address]. Doppler study showed no evidence of DVT. There was right inguinal lymphadenopathy. He denies any bleeding and bruising. He has been complaining of tiredness and fatigue. Review of Systems - Review of Systems All systems reviewed & are unremarkable except as noted in [facility] and [facility] Medical History: Medical History (Last Updated 04/10/24 @ 16:01 by Amanda Torres APRN) CHF (congestive heart failure) COVID-19 DVT of axillary vein, acute right Emphysema lung Onset Date: 02/[address] 03/23 Essential (primary) hypertension Metastatic disease Non-STEMI (non-ST elevated myocardial infarction) Normocytic anemia Type 2 diabetes mellitus with diabetic polyneuropathy Surgical History: Surgical History (Last Reviewed 04/10/24 @ 14:12 by Ilene Vu MD) History of amputation of right great toe Onset Date: 2012 Family History: Family History (Last Reviewed 04/10/24 @ 14:12 by Ilene Vu MD) Father Hypertension Lung cancer Mother Diabetes mellitus - Social History Social History: Social History (Last Reviewed 04/10/24 @ 14:12 by Ilene Vu MD) Alcohol Use: Alcohol intake: never Substance Use: Substance use: never Substance use type: does not use Others: Spiritual care concerns: No Living Arrangements: Living arrangements: with family Smoking Status: Smoking status: Former smoker Tobacco type: cigarettes Smoking Pack-years: Smoking packs per day: 2 Smoking cigarettes per day: 40.0 Years smoked: 35 Smoking pack-years: 70.00 Comments: Additional smoking assessment comments: quit in 2008 Social Determinants of Health: Do You Feel Safe in your Home?: Yes Has the Lack of Transportation Kept You From Medical Appointments or From Getting Medications?: No Within the Past 12 Months, Were You Worried Whether Your Food Would Run Out Before You Got Money to Buy More?: Never True What is Your Housing Situation Today?: I Have Housing Are You Worried That in the Next 2 Months, You May Not Have Your Own Housing to Live In?: No Do You Have Trouble Paying Your Heating Or Electricity Bill?: No Do You Have Trouble Paying For Medicines?: No Are You Currently Unemployed and Looking for Work?: No Highest Level of Education Completed: High School Diploma/GED Do You Have Trouble With Childcare or the Care of a Family Member?: No Exam - Vital Signs Vital Signs - 24 hr 04/10/24 08:20 04/10/24 08:27 04/10/24 08:31 Temperature 36.4 C L Pulse Rate 85 83 Respiratory Rate 24 H Blood Pressure 125/58 L Pulse Oximetry 95 95 Oxygen Delivery Room Air Room Air 04/10/24 08:53 04/10/24 09:47 04/10/24 10:15 Temperature Pulse Rate 84 79 Respiratory Rate 27 H 19 Blood Pressure 122/54 L 111/48 L 117/50 L Pulse Oximetry 98 95 Oxygen Delivery 04/10/24 11:11 04/10/24 08:28 04/10/24 08:31 Temperature 36.4 C L Pulse Rate 76 82 85 Respiratory Rate 22 H 24 H 24 H Blood Pressure 119/51 L 125/58 L 122/54 L Pulse Oximetry 93 95 95 Oxygen Delivery 04/10/24 09:16 04/10/24 10:15 04/10/24 10:31 Temperature Pulse Rate 80 76 78 Respiratory Rate 25 H 17 26 H
[2024-04-10] MEDS: IRON SUCROSE COMPLEX 400 MG, IRON SUCROSE COMPLEX 100 MG in SODIUM CHLORIDE 0.9% IV 250 ML 78.57 MG IVPB (20:01)
[2024-04-10 20:10] LABS: Iron 28 ug/dL (49-181)
[2024-04-10 20:20] LABS: Percent Iron Saturation 12 % (20-50)
[2024-04-10 20:56] LABS: Glucose Point of Care 130 mg/dl (65-105)
[2024-04-10 21:18] LABS: Folic Acid 4.6 ng/mL (2.76->20)
[2024-04-11] VITALS (39 sets, daily range): BP systolic 72–136; BP diastolic 47–64; PULSE 64–126; RESP 16–32; TEMP 35.9–37.4; O2SAT 72–100
[2024-04-11] MEDS: ALBUMIN HUMAN 25% 25 GM/100 ML 100 ML IVPB ×3 (00:03→12:33)
--- NOTE | 2024-04-11 00:20 | PC.NURSE ---
pt states started coughing and feeling short of breath, states this happens at home he starts coughing and then has to sit up the coughing makes his chest hurt when he coughs up the flem. Pt lace on nasal cannula at 5lpm. c
[2024-04-11] MEDS: HYDROcodone/acetaminophen (*CRX) 5-325 MG TABLET 1 TAB PO (00:36)
[2024-04-11] MEDS: guaiFENesin 12 HR 600 MG TABCR 1200 MG PO (00:41)
[2024-04-11] MEDS: FUROSEMIDE INJ 40 MG/4 ML VIAL IV PUSH ×3 (02:36→16:59)
[2024-04-11 05:05] LABS: Basophils Percent Auto 0.2 % (0.2-1.2); Eosinophils Absolute Auto 0.1 K/mm3 (0-0.3); Eosinophils Percent Auto 0.8 % (0-4.4); Hematocrit 23.7 % (42.0-52.0); Hemoglobin 7.2 g/dL (14.0-18.0); Immature Granulocyte Absolute 0.08 K/mm3 (0.00-0.031); Immature Granulocyte Percent A 0.8 % (0-0.5); Lymphocytes Percent Auto 5.1 % (18.3-44.2); Mean Corpuscular HGB Conc 30.4 g/dl (32-36); Mean Corpuscular Hemoglobin 25.4 pg (26-34); Mean Corpuscular Volume 83.5 fl (80-100); Mean Platelet Volume 10.2 fl (7.4-10.4); Monocytes Absolute Auto 0.7 K/mm3 (0.1-0.6); Monocytes Percent Auto 7.2 % (2.6-8.5); Neutrophils Absolute Auto 8.4 K/mm3 (1.3-6.7); Neutrophils Percent Auto 85.9 % (45.5-73.1); Platelet Count Result 152 k/mm3 (150-375); Red Blood Count 2.84 M/mm3 (4.6-6.20); White Blood Count 9.7 K/mm3 (4.5-10.0)
[2024-04-11 05:16] LABS: Hemoglobin A1C 6.5 % (<5.7)
[2024-04-11 05:18] LABS: Alanine Aminotransferase 16 U/L (6-50); Albumin Level 2.9 g/dL (3.5-5.1); Alkaline Phosphatase 66 U/L (38-126); Anion Gap 10 mmol/L (4-12); Aspartate Amino Transferase 33 U/L (17-59); Bilirubin,Total 0.4 mg/dL (0.2-1.3); Blood Urea Nitrogen 30 mg/dL (9-20); Calcium 8.3 mg/dL (8.4-10.2); Carbon Dioxide 24 mmol/L (22-30); Chloride 95 mmol/L (98-107); Estimated CRCL calculation 61 ml/min; Estimated Glomerular Filt Rate > 60; Glucose 108 mg/dL (65-110); Magnesium 1.6 mg/dL (1.6-2.3); Sodium 129 mmol/L (137-145)
[2024-04-11 05:26] LABS: Anisocytosis 1+; Hypochromasia 1+; Microcytosis 1+ (NORMAL); Platelet Estimate Adequate (Adequate); Schistocytes Rare
[2024-04-11 06:29] LABS: Alveolar/Arterial O2 Gradient 127.4 mmHg; Carboxyhemoglobin 1.7 % THb (0-2.0); Fractional Inspired Oxygen 40 %; HCO3 ABG 24.2 mEq/l (22.0-26.0); Methemoglobin ABG 0.3 %THb (0-1.5); Oxygen Content ABG 10.7 %vol (16.0-22.0); Oxygen Saturation ABG 98.3 % (95.0-100.0); Oxyhemoglobin 96.6 % THb (90.0-100.0); PO2 ABG 115.3 mmHg (80.0-100.0); PO2 FiO2 Ratio Arterial Blood 2.88 %; Reduced Hemoglobin 1.4 %THb (0-5.0); pH ABG 7.433 (7.350-7.450)
[2024-04-11 06:36] LABS: Device NON-INVASIVE VENT; Modified Allen's Test Pass; Site Drawn LEFT RADIAL; Total Hemoglobin 7.7 g/dL (12.0-18.0)
[2024-04-11 06:37] LABS: Non-Invasive Expiratory Pressure 8 CMH2O; Non-Invasive Inspiratory Pressure 12 CMH2O; Non-Invasive Vent Rate 12 /MIN
[2024-04-11 07:12] LABS: Glucose Point of Care 110 mg/dl (65-105)
[2024-04-11] MEDS: METOPROLOL SUCCINATE EXT REL 25 MG TABCR PO ×2 (07:43→12:33)
[2024-04-11 08:07] LABS: Glucose Point of Care 114 mg/dl (65-105)
[2024-04-11] MEDS: SODIUM CHLORIDE 1 GM TABLET PO ×3 (09:33→16:59)
[2024-04-11] MEDS: FERROUS SULFATE 325 MG TABLET DR BY MOUTH (09:33)
--- NOTE | 2024-04-11 10:52 | PM.PNCARD ---
Progress Note: A&P Assessment and Plan (1) Acute hypoxic respiratory failure: Code(s): J96.01 - Acute respiratory failure with hypoxia Status: Acute Assessment and Plan: Now on HFNC. CXR this morning shows stable extensive right lung consolidation with additional focal airspace disease at the left infrahilar region. Findings suggestive of bilateral pneumonia, right worse than left. Management of possible pneumonia as per primary team. He also does have metastatic disease in his chest, which could also be contributing to his respiratory issues. (2) Paroxysmal atrial fibrillation with RVR: Code(s): I48.0 - Paroxysmal atrial fibrillation Status: Acute Assessment and Plan: New diagnosis for the patient. Currently in sinus rhythm. Will increase Metoprolol dose. Not a candidate for anticoagulation given his significant anemia. (3) Acute on chronic heart failure with reduced ejection fraction (HFrEF, <= 40%): Code(s): I50.23 - Acute on chronic systolic (congestive) heart failure Status: Acute Assessment and Plan: Continue IV Lasix at 40mg BID. Please monitor strict I/Os. Continue home Losartan and Toprol. Will uptitrate heart failure GDMT as tolerated. Will increase Losartan and Toprol today. His significant anemia and hypoalbuminemia are also likely contributing to some of his volume overload state. (4) Anterior wall myocardial infarction: Code(s): I21.09 - ST elevation (STEMI) myocardial infarction involving other coronary artery of anterior wall Status: Acute Assessment and Plan: Found to have a recent anterior NE last admission. Has had persistent ST elevations during last admission. No chest pain. Not a candidate for cardiac catheterization given significant anemia, prohibiting anticoagulant / antiplatelet therapy. Also appears to likely have an overall poor prognosis given metastatic cancer. (5) 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 - Benign neoplasm of heart Status: Acute Assessment and Plan: A non-obstructing right atrial myxoma noted on echocardiogram. Given that it is non-obstructing, do not recommend further workup at this time. Given his metastatic cancer, cannot rule out that this mass is malignant. (6) Metastatic cancer: Qualifiers: Area of secondary neoplastic involvement: unspecified site Qualified Code(s): C79.9 - Secondary malignant neoplasm of unspecified site Code(s): C79.9 - Secondary malignant neoplasm of unspecified site Status: Acute Assessment and Plan: Underwent a right supraclavicular lymph node biopsy 03/27. 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 Oncology has been consulted. (7) Anemia: Qualifiers: Anemia type: unspecified type Qualified Code(s): D64.9 - Anemia, unspecified Code(s): D64.9 - Anemia, unspecified Status: Acute Assessment and Plan: Management as per primary team. Oncology/Hematology consulted as well. (8) Essential (primary) hypertension: Code(s): I10 - Essential (primary) hypertension Status: Acute Assessment and Plan: Stable. Continue Lasix, Losartan, Metoprolol. (9) Type 2 diabetes mellitus with diabetic polyneuropathy: Qualifiers: Diabetes mellitus half-way insulin use: without intermediate card tender use Qualified Code(s): E11.42 - Type 2 diabetes mellitus with diabetic polyneuropathy Code(s): E11.42 - Type 2 diabetes mellitus with diabetic polyneuropathy Status: Acute Assessment and Plan: Management as per primary team. Subjective Date/time seen: 04/11/24 10:52 Interval history: Reason for visit: Acute on chronic heart failure with reduced LVEF HPI: This is a 73 year old male with myocardial infarction, heart failure with reduced LVEF of 30-35%, non-obstructing right atrial myxoma, me
--- NOTE | 2024-04-11 11:24 | PM.CNGS ---
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 He has been admitted with a CHF exacerbation and acute respiratory failure, as well as new diagnosis of atrial fibrillation with RVR and recent AZ. The patient is not medically stable for Port placement at this time due to his acute issues. We could consider proceeding with Dick cath placement once he is medically stable, which may or may not be during this hospitalization. No plans for surgery at this time, but we will continue to follow along peripherally to decide on timing of surgery depending on how he progresses. (2) CHF exacerbation: Code(s): I50.9 - Heart failure, unspecified Status: Acute (3) Acute hypoxic respiratory failure: Code(s): J96.01 - Acute respiratory failure with hypoxia Status: Acute (4) Paroxysmal atrial fibrillation with RVR: Code(s): I48.0 - Paroxysmal atrial fibrillation Status: Acute (5) Type 2 diabetes mellitus with diabetic polyneuropathy: Qualifiers: Diabetes mellitus fpc insulin use: without technical support internship use Qualified Code(s): E11.42 - Type 2 diabetes mellitus with diabetic polyneuropathy Code(s): E11.42 - Type 2 diabetes mellitus with diabetic polyneuropathy Status: Acute (6) Anterior wall myocardial infarction: Code(s): I21.09 - ST elevation (STEMI) myocardial infarction involving other coronary artery of anterior wall Status: Acute (7) Anemia: Qualifiers: Anemia type: unspecified type Qualified Code(s): D64.9 - Anemia, unspecified Code(s): D64.9 - Anemia, unspecified Status: Acute (8) Essential (primary) hypertension: Code(s): I10 - Essential (primary) hypertension Status: Acute Plan I have discussed the patient's case and plan of care with Dr. Gallardo. Thank you for allowing us to see the patient in consultation. History of Present Illness Consult details Consult date: 04/11/24 Reason for consult: other (Port-A-Cath placement) Requesting physician: Berhane Dangelo MD Narrative: This is a 73-year-old man with a history of hypertension, who was recently diagnosed with anal cancer status post right supraclavicular lymph node biopsy. He had a CT scan of the chest, abdomen, and pelvis that showed rectal mass with lung nodules and lymphadenopathy in chest abdomen and pelvis consistent with metastatic disease. He was brought into the ED with increasing shortness of breath and lower extremity swelling and edema. He has been admitted for CHF exacerbation and acute respiratory failure. He also had an anterior AZ on his recent admission about a month ago. He is currently in IMU and cardiology is following who also mentions atrial fibrillation with RVR that is new for the patient, but has converted to sinus rhythm. He is being treated medically for his CHF exacerbation and was on a BiPAP this morning. Oncology was consulted for his metastatic anal cancer, and they plan to start palliative chemotherapy as an outpatient. They have consulted our service for Port-A-Cath placement. Review of Systems Review of Systems: All systems reviewed & are unremarkable except as noted in HPI and below PMFSH Past Medical History Medical History CHF (congestive heart failure) COVID-19 DVT of axillary vein, acute right Emphysema lung (02/2024) Moderate on CT 03/23 Essential (primary) hypertension Metastatic disease Non-STEMI (non-ST elevated myocardial infarction) Normocytic anemia Type 2 diabetes mellitus with diabetic polyneuropathy Surgical History Surgical History (Reviewed 04/10/24 @ 22:10 by Jossue Bean
[2024-04-11 11:59] LABS: Glucose Point of Care 118 mg/dl (65-105)
[2024-04-11] MEDS: LOSARTAN POTASSIUM 25 MG TABLET PO (12:33)
[2024-04-11] MEDS: GLIMEPIRIDE 1 MG TABLET PO (12:33)
[2024-04-11] MEDS: ATORVASTATIN 20 MG TABLET PO (12:35)
[2024-04-11 16:33] LABS: Glucose Point of Care 105 mg/dl (65-105)
--- NOTE | 2024-04-11 17:47 | PM.IMPN ---
Progress Note: A&P Assessment and Plan (1) Acute on chronic heart failure with reduced ejection fraction (HFrEF, <= 40%): Code(s): I50.23 - Acute on chronic systolic (congestive) heart failure Status: Acute Assessment and Plan: Patient presents with SOB. BNP 14,700. CXR showing masses in the RUL and LLL, diffuse R>L lung disease, adenopathy and small pleural effusions. Some of these findings noted by CT last month. Echo (03/22/2024): LV chamber moderately enlarged. Mid apical segments are severely hypokinetic, apex akinetic, basal segments preserved which is suggestive of Takotsubo cardiomyopathy. Estimated EF 30-35%, LV systolic function severely reduced, grade 1 diastolic dysfunction. Home medication: losartan, Toprol XL and Lasix 20 mg tid Venous Duplex negative for DVT, but does show right inguinal lymphadenopathy, consistent with metastatic disease Started on Lasix 40mg IV b.i.d. Losartan, Toprol XL resumed. Cardiology consulted Albumin 25 g q.6 hours x4 doses ordered Monitor I/Os, daily weights and renal function (2) Acute respiratory failure: Code(s): J96.00 - Acute respiratory failure, unspecified whether with hypoxia or hypercapnia Status: Acute Assessment and Plan: [place] related to above but worse overnight due to the AFib and possibly from the albumin. Better today and able to be weaned off the Bipap Repeat CXR showing stable extensive disease He does have cough so will consider PNA Add abx. Add xopenex. Check BCx, Sputum Cx (3) Anterior wall myocardial infarction: Code(s): I21.09 - ST elevation (STEMI) myocardial infarction involving other coronary artery of anterior wall Status: Acute Assessment and Plan: Patient with recent anterior wall NH last month. EKG here sinus rhythm, rate 81, low QRS voltage in limb leads, anterior wall NH with persistent ST elevation. When compared to EKG done on 03/24/2024 there are no significant changes. Troponin: 1.8 -> 1.6. Previously up to 4.5 so might just be trending down from last admisison. 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 Benign versus malignant given recent diagnosis of metastatic cancer. Given mass is nonobstructing, no further workup indicated (5) Metastatic cancer: Qualifiers: Area of secondary neoplastic involvement: unspecified site Qualified Code(s): C79.9 - Secondary malignant neoplasm of unspecified site Code(s): C79.9 - Secondary malignant neoplasm of unspecified site Status: Acute Assessment and Plan: Patient last admission found to have evidence of metastatic CA and a rectal mass. 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 Oncology consulted and recommended port placement for palliative chemotherapy. General surgery consulted for port placement Spoke with patient about comfort measures and he will speak with his . All questions answered (6) Anemia: Qualifiers: Anemia type: unspecified type Qualified Code(s): D64.9 - Anemia, unspecified Code(s): D64.9 - Anemia, unspecified Status: Acute Assessment and Plan: Hgb 8.1 Baseline hemoglobin appears to be 7-8 since October of 2023 and probably related to his CA Continue PO iron, additionally getting an iron transfusion per direction of Oncology consult [facility] (7) Hyponatremia: Code(s): E87.1 - Hypo-osm
--- NOTE | 2024-04-11 18:38 | PC.NURSE ---
Addendum entered by Radha Sutherland RN 04/11/24 18:43: Dr. Wilkinson to bedside to discuss code status and plan of care with pt and . Pt states I want everything done. Original Note: Pt refusing to leave BiPAP on. PT stating I don't want to do this anymore. I told him he could just kill me. Dr. Wilkinson notified of pt's increase in agitation and not leaving oxygen on. Dr. Wilkinson to reassess pt. Pt placed on Vapotherm to try and allow pt to receive some oxygen and be able to communicate with his .
--- NOTE | 2024-04-11 19:00 | PC.NURSE ---
brought to ICU 5 oon bipap for respiratory failure and elective intubation. placed on monitor and preped for intubation. Pt sweaty not responsive to verbal stimulation with eyes open
[2024-04-11] MEDS: SUCCINYLCHOLINE CHLORIDE 20 MG/ML 10 ML VIAL 100 MG IV PUSH (19:25)
[2024-04-11] MEDS: ETOMIDATE 20 MG/10 ML AMPUL IV PUSH (19:25)
[2024-04-11] MEDS: FENTANYL 2,500MCG/NS250ML(*CRX 2,500 MCG/250 ML BAG IV CONT (19:35)
[2024-04-11] MEDS: MIDAZOLAM 100MG/NS 100ML(*CRX) 100 MG/100 ML BAG IV CONT (19:35)
--- NOTE | 2024-04-11 19:36 | PC.NURSE ---
Night RN to bedside with dayshift RN for shift report. Pt is now obtunded and unable to respond. Hospitalist notified of change in condition. Pt moved ICU-5 and intubated. Family aware
--- NOTE | 2024-04-11 19:47 | WPDPROCEDUR ---
Procedures Intubation Intubation Date: 04/11/24 Intubation Time: 19:30 Consent: obtained emergently through . per bedside RN the patient's code status was readdressed this afternoon with the rounding physician, Minh ESCALANTE, and patient elected to remain full code. A pre-procedural Time-Out was completed immediately before starting the procedure and confirmed: Patient Identification, Site, Procedure, Patient Position and the Availability of Requisite Equipment: No (Emergent) Sedative: etomidate Mg given: 20 Paralytic: succinylcholine Mg given: 100 Laryngoscope: fiber optic video scope ET tube size: 7 Tube secured depth (cm): 24 Tube secured location: lips Tube placement confirmation: visualized tube passing through cords, equal breath sounds bilaterally, no breath sounds over epigastrium and confirmation by capnometry Patient tolerated procedure: well Intubation complications: none
--- NOTE | 2024-04-11 19:51 | P.PNCROSS_ITS ---
Event Note Event Note Event Note: Cross Coverage Per bedside RN, patient has been noncompliant with BiPAP for majority of the afternoon. Stating that he felt hot and would hold the BiPAP mask in front of his face. Patient was educated by the nursing staff that the BiPAP was not effective when utilized this way. During the history and physical yesterday patient elected to be full code. This afternoon the rounding physician, Minh ESCALANTE, again addressed code status with the patient and confirmed that he wanted to remain full code. At around 7:10p this evening patient became unresponsive. Patient was transferred to the ICU for intubation. Prior to procedure, spoke with the patient's spouse who confirmed that patient would like to remain full code. The patient was intubated with 20 of etomidate and 100 of succinylcholine. Patient tolerated intubation well. Postprocedure lab work ordered, CXR and KUB ordered. Economics Lecturer notified, no further recommendations at this time. Patient started on Versed and fentanyl gtt. Vital signs improving post intubation, was 121-130 and now at 82 with sat remaining at 100%. Critical Care Time: I personally spent 45 minutes of direct patient care including (but not limited to) the physical examination, decision-making, bedside evaluation, review of medical records, review of labs and imaging, discussion with nursing staff and other providers for collaborative, critical care management of this patient.
[2024-04-11 20:00] LABS: Alveolar/Arterial O2 Gradient 530.6 mmHg; Base Excess ABG -1.3 mEq/l (+/-2.0); Fractional Inspired Oxygen 100 %; HCO3 ABG 24.2 mEq/l (22.0-26.0); Oxygen Content ABG 11.7 %vol (16.0-22.0); Oxygen Saturation ABG 98.6 % (95.0-100.0); Oxyhemoglobin 97.6 % THb (90.0-100.0); PCO2 ABG 44.8 mmHg (35.0-45.0); PO2 ABG 137.6 mmHg (80.0-100.0); PO2 FiO2 Ratio Arterial Blood 1.38 %; Total Hemoglobin 8.3 g/dL (12.0-18.0); pH ABG 7.351 (7.350-7.450)
[2024-04-11] MEDS: SODIUM CHLORIDE 0.9% IV 1,000 ML 999 ML (20:00)
[2024-04-11 20:01] LABS: Device VENTILATOR; Modified Allen's Test Pass; Site Drawn LEFT RADIAL
[2024-04-11 20:02] LABS: Arterial Blood Gas PEEP 5 cmH2O; Arterial Blood Gas Tidal Volume 400 ml; Arterial Blood Gas Vent Mode CMV; Arterial Blood Gas Ventilator rate 16 /MIN
[2024-04-11 20:08] LABS: Hematocrit 25.8 % (42.0-52.0); Hemoglobin 7.7 g/dL (14.0-18.0); Mean Corpuscular HGB Conc 29.8 g/dl (32-36); Mean Corpuscular Hemoglobin 25.5 pg (26-34); Mean Corpuscular Volume 85.4 fl (80-100); Mean Platelet Volume 9.4 fl (7.4-10.4); Platelet Count Result 181 k/mm3 (150-375); Red Blood Count 3.02 M/mm3 (4.6-6.20); Red Cell Distribution Width 23.2 % (11.5-14.5); White Blood Count 12.9 K/mm3 (4.5-10.0)
[2024-04-11 20:18] LABS: Alanine Aminotransferase 15 U/L (6-50); Albumin Level 3.3 g/dL (3.5-5.1); Alkaline Phosphatase 69 U/L (38-126); Anion Gap 12 mmol/L (4-12); Aspartate Amino Transferase 28 U/L (17-59); Bilirubin,Total 0.5 mg/dL (0.2-1.3); Blood Urea Nitrogen 30 mg/dL (9-20); Calcium 8.3 mg/dL (8.4-10.2); Carbon Dioxide 26 mmol/L (22-30); Chloride 93 mmol/L (98-107); Estimated CRCL calculation 61 ml/min; Estimated Glomerular Filt Rate > 60; Glucose 187 mg/dL (65-110); INR 1.4; Magnesium 1.6 mg/dL (1.6-2.3); Phosphorus 5.1 mg/dL (2.5-4.5); Potassium 4.7 mmol/L (3.4-5.0); Prothrombin Time 17.7 Seconds (11.1-14.7); Sodium 131 mmol/L (137-145)
[2024-04-11 20:19] LABS: Partial Thromboplastin Time 33.4 Seconds (22.3-36.8)
[2024-04-11 20:22] LABS: MRSA (PCR) NOT DETECTED (NOT DETECTE)
[2024-04-11] MEDS: VANCOMYCIN 1,750 MG/NS 500 ML 1,750 MG/500 ML BAG 250 MG IVPB (20:30)
[2024-04-11] MEDS: MAGNESIUM SULF 2 GM/WATER 50ML 2 GM/50 ML BAG IVPB (20:50)
--- NOTE | 2024-04-11 21:00 | PC.NURSE ---
Patients picked up in wheelchair by family friend Amanda Jake C# [phone], H# [phone], Amanda confirms that there are no local relatives that she knows of and that the patient and his come from a hoarding type home situation.
[2024-04-11 21:11] LABS: Procalcitonin 0.3 ng/mL
[2024-04-11] MEDS: RAPID SEQUENCE INTUBATION KIT 1 EACH (21:29)
[2024-04-11] MEDS: CEFEPIME 1 GM/NS 50 ML 1 GM/50 ML BAG IVPB (22:20)
[2024-04-11] MEDS: DOXYCYCLINE 100 MG/NS 100 ML 100 MG/100 ML BAG IVPB (22:50)
[2024-04-11] MEDS: MINERAL OIL/WHITE PETROLATUM OINTMENT 1 APPLIC EACH EYE (22:51)
[2024-04-11 23:06] LABS: Reflex Lactic Acid Yes or No Add Lactic
[2024-04-11 23:51] LABS: Lactic Acid 3.6 mmol/L (0.7-2.0)
[2024-04-12] VITALS (19 sets, daily range): BP systolic 95–117; BP diastolic 48–62; PULSE 65–111; RESP 15–22; TEMP 36.1–37.4; O2SAT 18–100; BMI 23.6
[2024-04-12] MEDS: LEVALBUTEROL NEB 1.25 MG/3 ML INHALATION ×3 (02:45→13:30)
[2024-04-12 04:32] LABS: Alveolar/Arterial O2 Gradient 298.1 mmHg; Carboxyhemoglobin 1.3 % THb (0-2.0); Fractional Inspired Oxygen 60 %; HCO3 ABG 22.9 mEq/l (22.0-26.0); Methemoglobin ABG 0.1 %THb (0-1.5); Oxygen Content ABG 10.8 %vol (16.0-22.0); Oxygen Saturation ABG 97.4 % (95.0-100.0); Oxyhemoglobin 95.9 % THb (90.0-100.0); PCO2 ABG 34.3 mmHg (35.0-45.0); PO2 FiO2 Ratio Arterial Blood 1.53 %; Reduced Hemoglobin 2.7 %THb (0-5.0); pH ABG 7.442 (7.350-7.450)
[2024-04-12 04:34] LABS: Total Hemoglobin 7.9 g/dL (12.0-18.0)
[2024-04-12 04:35] LABS: Arterial Blood Gas PEEP 5 cmH2O; Arterial Blood Gas Vent Mode CMV; Arterial Blood Gas Ventilator rate 16 /MIN; Device VENTILATOR; Modified Allen's Test Pass; Site Drawn LEFT RADIAL
[2024-04-12 04:36] LABS: Arterial Blood Gas Tidal Volume 400 ml
[2024-04-12 04:45] LABS: Basophils Percent Auto 0.2 % (0.2-1.2); Eosinophils Absolute Auto 0.1 K/mm3 (0-0.3); Eosinophils Percent Auto 0.7 % (0-4.4); Hematocrit 27.9 % (42.0-52.0); Hemoglobin 7.8 g/dL (14.0-18.0); Immature Granulocyte Percent A 1.1 % (0-0.5); Lymphocytes Absolute Auto 0.61 K/mm3 (0.9-3.2); Lymphocytes Percent Auto 6.5 % (18.3-44.2); Mean Corpuscular Hemoglobin 24.8 pg (26-34); Mean Corpuscular Volume 88.9 fl (80-100); Monocytes Absolute Auto 0.8 K/mm3 (0.1-0.6); Monocytes Percent Auto 8.3 % (2.6-8.5); Neutrophils Absolute Auto 7.9 K/mm3 (1.3-6.7); Neutrophils Percent Auto 83.2 % (45.5-73.1); Platelet Count Result 163 k/mm3 (150-375); Red Blood Count 3.14 M/mm3 (4.6-6.20); Red Cell Distribution Width 23.3 % (11.5-14.5); White Blood Count 9.4 K/mm3 (4.5-10.0)
[2024-04-12 04:57] LABS: Alanine Aminotransferase 12 U/L (6-50); Albumin Level 3.1 g/dL (3.5-5.1); Alkaline Phosphatase 67 U/L (38-126); Anion Gap 14 mmol/L (4-12); Aspartate Amino Transferase 28 U/L (17-59); Bilirubin,Total 0.5 mg/dL (0.2-1.3); Blood Urea Nitrogen 31 mg/dL (9-20); Calcium 8.4 mg/dL (8.4-10.2); Carbon Dioxide 21 mmol/L (22-30); Chloride 97 mmol/L (98-107); Estimated CRCL calculation 67 ml/min; Estimated Glomerular Filt Rate > 60; Glucose 142 mg/dL (65-110); Magnesium 2.3 mg/dL (1.6-2.3); Potassium 3.9 mmol/L (3.4-5.0); Sodium 132 mmol/L (137-145)
[2024-04-12 05:07] LABS: Anisocytosis 1+; Hypochromasia 1+; Platelet Estimate Adequate (Adequate); Poikilocytosis 1+
[2024-04-12 05:08] LABS: Burr Cells 1+; Ovalocytes 1+; Schistocytes None Seen
[2024-04-12] MEDS: CEFEPIME 1 GM/NS 50 ML 1 GM/50 ML BAG IVPB (06:10)
[2024-04-12] MEDS: SODIUM CHLORIDE 1 GM TABLET PO (08:29)
[2024-04-12] MEDS: DOXYCYCLINE 100 MG/NS 100 ML 100 MG/100 ML BAG IVPB (08:29)
[2024-04-12] MEDS: FERROUS SULFATE 325 MG TABLET DR BY MOUTH (08:29)
[2024-04-12] MEDS: MINERAL OIL/WHITE PETROLATUM OINTMENT 1 APPLIC EACH EYE (08:37)
[2024-04-12 08:42] LABS: Glucose Point of Care 145 mg/dl (65-105)
--- NOTE | 2024-04-12 08:44 | PC.NURSE ---
Updated ,Jennifer, via Amanda, friend of patient and due to patient's spouse cognitive level.
[2024-04-12 08:56] LABS: MRSA (PCR) DETECTED (NOT DETECTE)
[2024-04-12 09:50] LABS: Influenza A QL RT-PCR Negative (Negative); Influenza B QL RT-PCR Negative (Negative); RSV RNA, RT-PCR Negative (Negative); SARS-CoV-2 RNA PCR Positive (Negative)
--- NOTE | 2024-04-12 10:29 | PC.NURSE ---
Patient at bedside, updated on COVID and MRSA positive. Appropriate PPE worn.
--- NOTE | 2024-04-12 10:38 | WPDCNINT ---
Assessment and Plan Assessment and plan (1) Acute hypoxic respiratory failure: Code(s): J96.01 - Acute respiratory failure with hypoxia Status: Acute Assessment and Plan: Multifactorial acute respiratory failure secondary to combination of CHF/pulmonary edema, COPD, cancer with metastatic since, pleural effusion, pneumonia and possible COVID-19 Patient was tested positive for COVID-19 on 03/22 at that time he was not hypoxic and did not receive any treatment. Patient remains positive for COVID-19 and now he is on ventilator and requiring oxygen Patient has baseline COPD and congestive heart failure and CT scan and chest x-ray consistent with pulmonary edema Patient also has pneumonia and metastatic his in his lungs Now intubated and sedated and on mechanical ventilation ABG reviewed and tidal volume decreased to 360 Blood and sputum cultures have been sent and are pending Repeat noncontrast CT ordered and pending Will start diuresis once hemodynamics are stable Empiric vancomycin cefepime Although patient has been positive COVID-19 he has not required treatment in the past. He has not cleared the virus yet. 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 He was supposed to start palliative chemotherapy and was going to get a port but obviously has deteriorated and currently not a candidate for any treatment (3) Type 2 diabetes mellitus with diabetic polyneuropathy: Qualifiers: Diabetes mellitus custodial insulin use: without technician terminal and repeater use Qualified Code(s): E11.42 - Type 2 diabetes mellitus with diabetic polyneuropathy Code(s): E11.42 - Type 2 diabetes mellitus with diabetic polyneuropathy Status: Acute Assessment and Plan: Sliding scale insulin (4) Acute on chronic heart failure with reduced ejection fraction (HFrEF, <= 40%): Code(s): I50.23 - Acute on chronic systolic (congestive) heart failure Status: Acute Assessment and Plan: Echo / 1. Definity contrast administered improved wall motion interpretation. 2. Left ventricular chamber dimension is moderately enlarged. 3. Mid to apical segments are severely hypokinetic and apex is akinetic. Basal segments are preserved. This is suggestive of Takotsubo cardiomyopathy. 4. Left ventricular systolic function is severely reduced, estimated at 30-35%. 5. The left ventricular diastolic function is grade I diastolic dysfunction. 6. E/e' 12 is mildly elevated. 7. 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 This is non-obstructive. Consider EYMI if clinically indicated. 8. There is mild to moderate tricuspid valve regurgitation. 9. No pulmonary hypertension, estimated pulmonary arterial systolic pressure is 39 mmHg. 10. There is small right sided pericardial effusion. 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
--- NOTE | 2024-04-12 11:31 | PM.EVENT ---
Event Note Event Note Event Note: Family Meeting I met with patient's , their family friends Amanda and Benjamin to discuss medical decisions and goals of care. I explained them the patient has metastatic cancer which is incurable, he is now in respiratory failure which is multifactorial secondary to metastatic disease, pneumonia, CHF, COPD and also tested positive for COVID. I explained them the current condition, treatment plan, and that patient's overall prognosis is poor considering most of the issues the had are uncurable. Patient's and friend stated that they understand the patient is critically ill with very poor prognosis and do not believe patient wants to continue living on life support. I discussed options of continued treatment, continue treatment to with DNR and palliative care. I answered all their questions. Jennifer feels the patient never wanted to go on a ventilator in the 1st place but may have chosen because of his shortness of breath. Feels that if his shortness of breath is treated that he may not want to continue suffering like this on a machine. She was helped by Amanda in decision making. After discussing among themselves, tony Rodriguez has decided, in accordance with her assessment of pt's wishes, to discontinue all medical therapy, extubate palliatively and institute comfort measures only. I have explained them I will use opioids, anxiolytics and other agents on as needed basis to promote comfort and discontinue all medical therapy, lab testing and invasive monitoring. Going this route will mean the patient will eventually . All 3 members verbalized understanding and agreed to proceed. I have placed orders for palliative extubation and comfort care and also notified primary physician Dr. Wilkinson Total time spent 30 minutes
--- NOTE | 2024-04-12 11:40 | PCDIET ---
Tube feeding recommendations: Vital AF 1.2 at 20 ml/hr advance by q 4 hours to goal rate of 50 ml/hr with the addition of protein modular Prosource BID. Flush 30 ml q 4 hours. Will continue to monitor every 3 days.
[2024-04-12] MEDS: MORPHINE SULFATE INJ (*CRX) 10 MG/ML AMP 5 MG IV PUSH (11:55)
[2024-04-12] MEDS: LORazepam INJ (*CRX) 2 MG/ML VIAL IV PUSH (12:04)
[2024-04-12] MEDS: ATROPINE SULFATE 1% OPHTH SOLN 5 ML BOTTLE SUBLINGUAL (12:05)
--- NOTE | 2024-04-12 12:10 | PC.NURSE ---
Patient extubated per order, family brought back to the room in appropriate PPE.
--- NOTE | 2024-04-12 15:42 | PC.NURSE ---
Family updated on patient's passing. Family to come to bedside.
--- NOTE | 2024-04-12 16:16 | PC.NURSE ---
Family at bedside.
--- NOTE | 2024-04-12 17:22 | PM.DDS ---
Discharge Summary Date and Time Date of : 04/12/24 Time of : 15:38 Provider Pronounced By: 2 RNs Name of First RN That Pronounced: Aravind Raman RN Name of Second RN That Pronounced: Yenifer Kahn RN Probable Cause of Probable Cause of : Respiratory failure, metastatic cancer. Summary Hospital Course: Patient presented with SOB. Diagnosed with acute CHF and started on IV Lasix. PNA could not be excluded so antibiotics started. His condition worsened due to the AFib with some initial improvement but then worsened to acute respiratory failure requiring intubation. Patient moved to the ICU. He has known metastatic anal cancer. 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 Oncology consulted and recommended palliative chemotherapy if patient could tolerate. Family were involved in the patient's care. All options discussed and family decided to withdraw care. Patient was made comfortable and passed on 04/12/24. Additional Data Confirmation of as documented by pronouncing clinician: Pupillary Reflex, Palpable Pulses, Response to Stimuli, Heart Tones and Breath Sounds Name of Provider Notified: dr. hubbard and dr. valdez Time Provider Notified: 15:45 Provider Requests Autopsy: No Predictive Maintenance Technician Notified: Yes Date [facility] Notified of : 04/12/24 Time [facility] Notified of : 16:21
== END 2024-04-12 15:38 | disposition expired | DRG 208 ==
LOC: ANHED 09:06 → ANHIMU 11:24 → ANHICU 04-11 19:17
PROVIDERS: Internal Medicine; Internal Medicine Hematology & Oncology; Student in an Organized Health Care Education/Training Program; Admitting Provider General Practice; Emergency Provider Emergency Medicine; PCP Family Medicine Adolescent Medicine; Visit Provider Internal Medicine
DX: J96.01 Acute respiratory failure with hypoxia (principal); I50.23 Acute on chronic systolic (congestive) heart failure; I21.09 ST elevation (STEMI) myocardial infarction involving other coronary artery of anterior wall; U07.1 COVID-19; C20 Malignant neoplasm of rectum; C78.00 Secondary malignant neoplasm of unspecified lung; C79.89 Secondary malignant neoplasm of other specified sites; D15.1 Benign neoplasm of heart; D50.9 Iron deficiency anemia, unspecified; E11.42 Type 2 diabetes mellitus with diabetic polyneuropathy; E87.1 Hypo-osmolality and hyponatremia; I48.0 Paroxysmal atrial fibrillation; I11.0 Hypertensive heart disease with heart failure; J43.9 Emphysema, unspecified; Z89.411 Acquired absence of right great toe; Z51.5 Encounter for palliative care; Z86.718 Personal history of other venous thrombosis and embolism; Z79.84 Long term (current) use of oral hypoglycemic drugs; Z87.891 Personal history of nicotine dependence; Z86.16 Personal history of COVID-19; Z91.199 Patient's noncompliance with other medical treatment and regimen due to unspecified reason
CPT/HCPCS: 31500; 36415; 36569; 36600; 71045; 71046; 80053; 82375; 82607; 82728; 82746; 82805; 82810; 82948; 83036; 83050; 83540; 83550; 83605; 83735; 83880; 84100; 84145; 84484; 85025; 85027; 85610; 85730; 87040; 87070; 87077; 87181; 87205; 87637; 87641; 93005; 93970; 94002; 94003; 94640; 96365; 96366; 96375; 96376; 99285; A9270; G0378; J0330; J0692; J1756; J1940; J2060; J2250; J2270; J3010; J3370; J3475; J7030; J7050; P9047